=== PATIENT | male | born 1970 | race American Indian/Alaskan Native ===

== ENCOUNTER 2021-01-05 16:34 | Outpatient (REF) | payer OTHER, SELFPAY ==
[2021-01-05 17:56] LABS: Hematocrit 43.8 % (42-52); Hemoglobin 14.7 g/dl (14.0-18.0); Mean Corpuscular HGB Conc 33.6 g/dl (31.0-36.0); Mean Corpuscular Hemoglobin 32.8 pg (27.0-33.0); Mean Corpuscular Volume 97.8 fL (80-98); Mean Platelet Volume 9.4 fL (9.4-12.4); Platelet Count 274 X10*3/uL (160-400); Red Blood Count 4.48 X10*6/uL (4.60-5.80); Red Cell Distribution Width 12.7 % (11.0-16.0); White Blood Count 7.7 X10*3/uL (4.8-10.8)
[2021-01-05 18:14] LABS: Alanine Aminotransferase 23 U/L (0-40); Albumin Level 4.2 g/dL (3.5-5.0); Alkaline Phosphatase 60 U/L (39-117); Anion Gap 14 (12-20); Aspartate Amino Transferase 19 U/L (5-37); Bilirubin Total 1.2 mg/dL (0.0-1.0); Blood Urea Nitrogen 13 mg/dL (9-16); Carbon Dioxide 28 mmol/L (22-29); Chloride 104 mmol/L (96-108); Cholesterol 183 mg/dL; Estimated Glomerular Filt Rate > 60; Glucose Random 92 mg/dL (60-115); HDL Cholesterol 53 mg/dL; LDL Cholesterol Calculated 113 mg/dl; Potassium 4.5 mmol/L (3.3-5.1); Sodium 141 mmol/L (135-145); Total Protein 7.3 g/dL (6.5-8.0); Triglycerides 89 mg/dL
[2021-01-05 18:35] LABS: Prostate Specific Antigen 0.56 ng/mL (<0.05-4.0); Vitamin D 25-OH Total 27.3 ng/mL (>30)
[2021-01-06 07:12] LABS: Estimated Average Glucose 105 mg/dL; Hemoglobin A1c % 5.3 %
== END 2021-01-05 16:35 | disposition home or self-care (01) ==
LOC: HO.LAB 16:34
PROVIDERS: PCP Internal Medicine; Visit Provider Nurse Practitioner Family
DX: E78.2 Mixed hyperlipidemia (principal); R73.01 Impaired fasting glucose; E55.9 Vitamin D deficiency, unspecified; Z12.5 Encounter for screening for malignant neoplasm of prostate
CPT/HCPCS: 36415; 80053; 80061; 82306; 83036; 84153; 85027

== ENCOUNTER 2024-02-23 13:21 | Outpatient (AMB) | payer OTHER, SELFPAY ==
[2024-02-23 13:22] VITALS: BP 132/82; PULSE 91; O2SAT 98; BMI 36.6
--- NOTE | 2024-02-23 13:22 | MHC.PC.OV ---
Vital Signs 02/23/24 13:22 Height 5 ft 8.5 in Weight 244 lb BMI 36.6 BP 132/82 Blood Pressure Location Lt brachial Position Sitting Pulse 91 Pulse Source Pulse Oximeter Pulse Oximetry (%) 98 Oxygen Delivery Method Room Air Intake Visit Reasons: Establish Care Allergies Iodinated Contrast Media [IV CONTRAST] Allergy (Severe, Verified 02/23/24 13:40) ANAPHYLAXIS iodine Adverse Reaction (Severe, Verified 02/23/24 13:40) Anaphylaxis Medication List - Last Reconciled 02/23/24 by Gaye Miguel MD B-complex with vitamin C 1 tab PO DAILY bupropion HCl XL 150 mg PO QAM cyanocobalamin (vitamin B-12) 1,000 mcg PO DAILY fx-eai-[id number]-M4-pz7-jxp-epa-fish 200 mcg-1,000 unit-25 mg tabs PO trazodone 50 mg PO BEDTIME PRN Tobacco use date assessed: 02/23/24 Dental Screening Dental Screen Date: 02/23/24 Did you have a dental visit in the last 12 months?: Yes Did you have a dental problem in the last 6 months where you did not have access to dental care?: No Was dental information given to patient?: Patient has dentist HPI Establish Care HPI Details 53-year-old obese male with generalized anxiety disorder coming in to be seen for the 1st time. History of left ankle bimalleolar fracture December 2018 open reduction internal fixation left ankle Dr. Gandara. complains fo memory problem. skin rash concern dermatology [facility] Medical History (Updated 02/23/24 @ 14:37 by Gaye Miguel MD) Bruised kidney Surgical History (Updated 02/23/24 @ 14:21 by Gaye Miguel MD) S/P surgical manipulation of ankle joint Hx of shoulder surgery Family History (Updated 02/23/24 @ 13:46 by Sonia Gallegos CMA) Mother Diabetes Skin cancer Hypertension Father Diabetes Sister Skin cancer Sister Skin cancer Sister No problems noted. Brother No problems noted. Brother No problems noted. Brother No problems noted. Other Mental health disorder Substance use disorder Social History (Updated 02/23/24 @ 14:25 by Gaye Miguel MD) Housing: Apartment Alcohol intake: current Comment: 2x a week 3 beers Patient Tobacco Use Status: Never used Tobacco Tobacco use type: Cigarette Years Smoked: smoke cannabis e-Cigarette/Vaping Use: Currently Using (THC ) Second Hand Smoke Exposure: Yes service: No Current occupational status: employed Current occupation: [employer] Current occupational exposures/hazards: No Cognitive needs: No Hearing needs: No Vision needs: Yes Questionnaire PHQ-9 Over the last 2 weeks, how often have you been bothered by any of the following problems? 1. Little interest or pleasure in doing things: more than half the days 2. Feeling down, depressed, or hopeless: more than half the days 3. Trouble falling or staying asleep, or sleeping too much: more than half the days 4. Feeling tired or having little energy: nearly every day 5. Poor appetite or overeating: more than half the days 6. Feeling bad about yourself - or that you are a failure or have let yourself or your family down: several days 7. Trouble concentrating on things, such as reading the newspaper or watching television: several days 8. Moving or speaking so slowly that other people could have noticed. Or the opposite - being so fidgety or restless that you have been moving around a lot more than usual: not at all 9. Thoughts that you would be better off or of hurting yourself in some way: not at all Total score: 13 Depression Screening Interpretation: Positive Depression Screening Done: Yes 63497 - PHQ-9 Billing: Yes Source: Developed by Drs. Alex Vo, Dena Davis, Man Ballesteros and colleagues, with an educational cheryl from [employer]. Thrive Questionnaire Date Thrive assessed: 02/23/24 I am a: Patient What is your living situation today?: I have a steady place to live Within the past 12 months, did the food you bought not last and you didn't have the money to get more?: Never true Within the past 12 months, did you worry whether your food would run out before you got money to buy more?: Never true Do you have trouble paying for medicines?: No Do you have trouble getting transportation to medical appointments?: No Do you have trouble paying your heating and electricity bill?: No Do you have trouble taking care of your child, family member or friend?: No Do you have trouble with day-to-day activities such as bathing, preparing meals, shopping, managing finances, etc.?: No Are you currently unemployed and looking for a job?: No Are you interested in more education?: No Currently or been in a relationship where the following occur: no concerns reported THRIVE Score: 0 AUDIT C Alcohol Use Questionnaire (AUDIT-C) 1. How often do you have a drink containing alcohol?: 2-3 times a week 2. How many drinks containing alcohol do you have on a typical day when you are drinking?: 3 or 4 3. How often do you have six or more drinks on one occasion?: Never Total Score: 4 NANCY-7 AMB Questionnaire NANCY-7 Date NANCY - 7 assessed: 02/23/24 Feeling nervous, anxious, or on edge: 2 = More than half the days Not being able to stop or control worryin = More than half the days Worrying too much about different things: 2 = More than half the days Trouble relaxin = More than half the days Being so restless that it is hard to sit still: 1 = Several days Becoming easily annoyed or irritable: 2 = More than half the days Feeling afraid as if something awful might happen: 1 = Several days Total NANCY-7 score (0-4 normal; 5-9 mild; 10-14 moderate; 15-21 severe): 12 Source: Developed by Drs. Alex Vo, Dena Davis, Man Ballesteros and colleagues, with an educational cheryl from [employer]. NANCY-7 Assessment Billing NANCY-7 Assessment Tool: NANCY-7 Assessment 25279 Physical exam (Primary Care) Vital Signs: Last Vital Signs Pulse 91 02/23/24 13:22 BP 132/82 02/23/24 13:22 Pulse Ox 98 02/23/24 13:22 Oxygen Delivery Method Room Air 02/23/24 13:22 BMI result Body Mass Index 36.6 Tobacco/Smoking Status: Tobacco use Status Tobacco use date assessed 02/23/24 02/23/24 13:50 Patient Tobacco Use Status Never used Tobacco 02/23/24 14:25 Tobacco use type Cigarette 02/23/24 14:25 e-Cigarette/Vaping Use Currently Using (THC ) 02/23/24 14:25 PHQ-9: PHQ-9 Score PHQ-9: Total score 13 02/23/24 14:22 Depression Screening Interpretation: Positive Thrive Assessment: Date of Thrive Assessment Date Thrive assessed 02/23/24 02/23/24 13:28 Currently or been in a relationship where the following occur: no concerns reported Const General: alert; No acute distress Eyes Conjunctivae: conjunctivae normal Resp Auscultation: clear to auscultation bilaterally Cardio Rate: regular rate Rhythm: regular rhythm GI Inspection: Yes normal to inspection Extrem General: Yes normal to inspection and No edema Immunizations Engerix-B (PF) 20 mcg/mL intramuscular syringe Performing Provider: Gaye Miguel MD Performing Location: [facility] Administered by: Sonia Gallegos CMA on 02/23/24 14:44 Dose Route Admin Location Dispensed Lot Number Expiration Date [facility] Teleprinter Installer 1 mL IM Left Deltoid 1 mL [id number] 09/18/24 [id number] [employer] VIS Given Date VIS Provided VIS Publication Date 02/23/24 Single Vaccine 23 Eligibility Eligibility Date Funding Source Not [facility] Eligible 02/23/24 Private Assessment and Plan Assessment & Plan (1) Generalized anxiety disorder: Code(s): F41.1 - Generalized anxiety disorder Plan: Continue with present medication (2) Colon cancer screening: Code(s): Z12.11 - Encounter for screening for malignant neoplasm of colon Plan: Reminded about colonoscopy (3) Impaired fasting blood sugar: Code(s): R73.01 - Impaired fasting glucose Plan: Decrease the amount of carbohydrate intake, pasta, bread, rice and potatoes are all sugar and that is aside from all the sweet stuff, remember that fruits are good but they are Sweet also. (4) Skin tag: Code(s): L91.8 - Other hypertrophic disorders of the skin (5) Facial dermatitis: Code(s): L30.9 - Dermatitis, unspecified (6) Plantar fasciitis of right foot: Code(s): M72.2 - Plantar fascial fibromatosis Orders: Orders Comprehensive Met. Panel Today R73.01 - Impaired fasting glucose Lipid Panel Today E78.00 - Pure hypercholesterolemia, unspecified, R73.01 - Impaired fasting glucose Thyroid Stimulating Hormone Today R73.01 - Impaired fasting glucose Free T4 (Free Thyroxine) Today R73.01 - Impaired fasting glucose Hemoglobin A1c Today R73.01 - Impaired fasting glucose Complete Blood Count Auto Diff Today R73.01 - Impaired fasting glucose Prostate Specific Antigen Scr Today R73.01 - Impaired fasting glucose Vitamin B12 and Folate Today R73.01 - Impaired fasting glucose Referrals Psychiatry Referral F41.1 - Generalized anxiety disorder Gastroenterology Referral Z12.11 - Encounter for screening for malignant neoplasm of colon Dermatology Referral L30.9 - Dermatitis, unspecified Coding Level of Care Code New Pt Level 4 (93154) Diagnoses Generalized anxiety disorder F41.1 Colon cancer screening Z12.11 Impaired fasting blood sugar R73.01 Skin tag L91.8 Facial dermatitis L30.9 Plantar fasciitis of right foot M72.2 Additional Codes NANCY-7 Assessment Billing - NANCY-7 Assessment Tool: NANCY-7 Assessment 24937 ([id number])
== END 2024-02-23 14:50 | disposition home or self-care (01) ==
PROVIDERS: PCP Internal Medicine; Visit Provider Internal Medicine
DX: Z23 Encounter for immunization (principal); R73.01 Impaired fasting glucose; L30.9 Dermatitis, unspecified; F41.1 Generalized anxiety disorder; M72.2 Plantar fascial fibromatosis
CPT/HCPCS: 90471; 90746; 99204

== ENCOUNTER 2024-02-25 11:30 | Outpatient (REF) | payer OTHER, SELFPAY ==
[2024-02-25 11:57] LABS: MANUAL DIFF FLAG NO
[2024-02-25 12:28] LABS: Basophils Absolute Auto 0.1 X10*3/uL (0.0-0.2); Basophils Percent Auto 1.4 % (0-2); Eosinophils Absolute Auto 0.2 X10*3/uL (0.0-0.4); Eosinophils Percent Auto 3.6 % (0-4); Hematocrit 40.7 % (42.0-52.0); Hemoglobin 14.2 g/dl (14.0-18.0); Imm Gran Abs Auto 0.01 X10*3/uL (0.00-0.03); Imm Gran Pct Auto 0.2 % (0.0-0.4); Lymphocytes Absolute Auto 1.8 X10*3/uL (1.2-4.9); Lymphocytes Percent Auto 35.3 % (20-40); Mean Corpuscular HGB Conc 34.9 g/dl (31.0-36.0); Mean Corpuscular Hemoglobin 34.1 pg (27.0-33.0); Mean Corpuscular Volume 97.8 fL (80.0-98.0); Mean Platelet Volume 9.6 fL (9.4-12.4); Monocytes Absolute Auto 0.4 X10*3/uL (0.1-1.2); Monocytes Percent Auto 8.7 % (2-11); Neutrophils Absolute Auto 2.6 x10*3/uL (2.0-8.3); Neutrophils Percent Auto 50.8 % (45-73); Platelet Count 239 X10*3/uL (160-400); Red Blood Count 4.16 X10*6/uL (4.60-5.80); Red Cell Distribution Width 12.7 % (11.0-16.0); White Blood Count 5.1 X10*3/uL (4.8-10.8)
[2024-02-25 12:46] LABS: Estimated Average Glucose 103 mg/dL; Hemoglobin A1c % 5.2 % (<6.0)
[2024-02-25 13:09] LABS: Alanine Aminotransferase 47 U/L (0-40); Alkaline Phosphatase 54 U/L (39-117); Anion Gap 11 (12-20); Aspartate Amino Transferase 31 U/L (5-37); Bilirubin Total 0.9 mg/dL (0.0-1.0); Blood Urea Nitrogen 11 mg/dL (9-16); Calcium 9.5 mg/dL (8.4-10.2); Carbon Dioxide 28 mmol/L (22-29); Chloride 107 mmol/L (96-108); Cholesterol 198 mg/dL (<200); Estimated Glomerular Filt Rate > 60; Glucose Random 94 mg/dL (60-115); HDL Cholesterol 57 mg/dL (>40); LDL Cholesterol Calculated 129 mg/dL (<100); Potassium 4.6 mmol/L (3.3-5.1); Sodium 141 mmol/L (135-145); Total Protein 7.1 g/dL (6.5-8.0); Triglycerides 62 mg/dL (<150)
[2024-02-25 13:19] LABS: Free T4 (Free Thyroxine) 1.22 ng/dL (0.71-1.85); Thyroid Stimulating Hormone 1.68 uIU/mL (0.32-4.0)
[2024-02-25 13:25] LABS: Folate 13.7 ng/mL (> or = 4.0); Prostate Specific Antigen Scr 0.62 ng/mL (<0.05-4.0); Vitamin B12 1280 pg/mL (200-900)
== END 2024-02-25 11:31 | disposition home or self-care (01) ==
LOC: HO.LAB 11:30
PROVIDERS: PCP Internal Medicine; Visit Provider Internal Medicine
DX: E78.00 Pure hypercholesterolemia, unspecified (principal); R73.01 Impaired fasting glucose
CPT/HCPCS: 36415; 80053; 80061; 82607; 82746; 83036; 84153; 84439; 84443; 85025

== ENCOUNTER 2024-03-10 08:15 | Outpatient (REF) | payer OTHER, SELFPAY ==
--- NOTE | ~2024-03-10 | US_ITS ---
EXAMINATION: US ABDOMEN COMPLETE CLINICAL INFORMATION: Elevated LFTs. COMPARISON: None available. TECHNIQUE: Real-time imaging of the abdominal viscera. Technically severely limited study secondary to bowel gas. FINDINGS: PANCREAS: Limited visualization of pancreatic tail and head. Imaged portion of pancreatic body is unremarkable. ABDOMINAL AORTA: Limited visualization particularly of the mid and proximal abdominal aorta. Imaged portions of the [id number]-[id number] abdominal aorta are unremarkable. INFERIOR VENA CAVA: Visualized portions are normal. LIVER: Increased hepatic parenchymal heterogeneity and echogenicity could be associated with hepatocellular disease/hepatic steatosis and substantially limits visualization. Correlation with liver function tests and clinical exam recommended to determine further management. Severely limited visualization, with particularly poor visualization of the left hepatic lobe. GALLBLADDER: No gallstones. No gallbladder wall thickening. COMMON BILE DUCT: Normal in caliber measuring 0.20 cm in diameter. RIGHT KIDNEY: No hydronephrosis. No renal calculi. Limited visualization. The kidney measures 10.3 cm in maximum dimension. LEFT KIDNEY: No hydronephrosis. No renal calculi. Limited visualization. The kidney measures 12.9 cm in maximum dimension. SPLEEN: Normal. The spleen measures 9.9 cm in maximum dimension. FREE FLUID: None. US/US abdomen complete IMPRESSION: Increased hepatic parenchymal heterogeneity and echogenicity could be associated with hepatocellular disease/hepatic steatosis and substantially limits visualization. Correlation with liver function tests and clinical exam recommended to determine further management.
== END 2024-03-10 08:16 | disposition home or self-care (01) ==
LOC: HO.HMGCX 08:15
PROVIDERS: PCP Internal Medicine; Visit Provider Internal Medicine
DX: R79.89 Other specified abnormal findings of blood chemistry (principal)
CPT/HCPCS: 76700

== ENCOUNTER 2024-03-25 08:41 | Outpatient (REF) | payer OTHER, SELFPAY ==
[2024-03-25 10:02] LABS: Alanine Aminotransferase 85 U/L (0-40); Albumin Level 4.2 g/dL (3.5-5.0); Alkaline Phosphatase 57 U/L (39-117); Anion Gap 14 (12-20); Aspartate Amino Transferase 45 U/L (5-37); Bilirubin Total 0.6 mg/dL (0.0-1.0); Blood Urea Nitrogen 9 mg/dL (9-16); Calcium 9.7 mg/dL (8.4-10.2); Carbon Dioxide 31 mmol/L (22-29); Chloride 106 mmol/L (96-108); Estimated Glomerular Filt Rate > 60; Glucose Random 100 mg/dL (60-115); Potassium 4.8 mmol/L (3.3-5.1); Sodium 146 mmol/L (135-145); Total Protein 7.3 g/dL (6.5-8.0)
[2024-03-25 10:23] LABS: HBS Num1 1.47 mIU/mL (0-7.99); HBc Num1 0.16 S/CO (0.00-0.79); HBsAGNum1 0.61 S/CO (0.00-0.99); Hepatitis B Core Antibody Nonreactive (Nonreactive); Hepatitis B Surface Antigen Negative (Negative); ~Hepatitis B Surface Antibody NONREACTIVE (Nonreactive); ~Hepatitis C Antibody Nonreactive (Nonreactive)
== END 2024-03-25 08:42 | disposition home or self-care (01) ==
LOC: HO.LAB 08:41
PROVIDERS: PCP Internal Medicine; Visit Provider Internal Medicine
DX: R79.89 Other specified abnormal findings of blood chemistry (principal)
CPT/HCPCS: 36415; 80053; 86704; 86706; 86803; 87340

== ENCOUNTER 2024-04-19 09:08 | Outpatient (AMB) | payer OTHER, SELFPAY ==
[2024-04-19 09:13] VITALS: BP 118/90; PULSE 73; O2SAT 98; BMI 33.0
--- NOTE | 2024-04-19 09:13 | MHC.PC.OV ---
Vital Signs 04/19/24 09:13 Height 5 ft 8.5 in Weight 220 lb 0.4 oz BMI 33.0 BP 118/90 H Blood Pressure Location Lt brachial Position Sitting Pulse 73 Pulse Source Pulse Oximeter Pulse Oximetry (%) 98 Oxygen Delivery Method Room Air Intake Visit Reasons: Abdomen Pain Intake Note: pt sates abdominal pain X1 month Merchandise Flow Associate Required: No Allergies Iodinated Contrast Media [IV CONTRAST] Allergy (Severe, Verified 04/19/24 09:16) ANAPHYLAXIS iodine Adverse Reaction (Severe, Verified 04/19/24 09:16) Anaphylaxis Medication List - Last Reconciled 04/19/24 by Marina Saucedo PA-C B-complex with vitamin C 1 tab PO DAILY bupropion HCl XL 150 mg PO QAM cyanocobalamin (vitamin B-12) 1,000 mcg PO DAILY [id number]-cwe-[id number]-sky-epa-fish 200 mcg-1,000 unit-25 mg tabs PO trazodone 50 mg PO BEDTIME PRN Tobacco use date assessed: 04/19/24 Dental Screening Dental Screen Date: 02/23/24 HPI Abdomen Pain HPI Details 53-year-old male with medical history of impaired glucose tolerance, generalized anxiety disorder, and hepatic steatosis last seen by Dr. Miguel 02/23/2024 coming in for an acute visit.? Patient had abdominal ultrasound 03/10/2024 which found increased hepatic parenchymal heterogeneity consistent with hepatocellular disease or hepatic steatosis. Per portal discussion, patient is being followed for elevated liver functions.?Has been improving diet and exercise as well as added vitamin supplements turmeric, milk thistle, and fish oil daily.? Denies use of edible cannabis but is still using cannabis in a vape form. Still having abdominal pain primarily at night and has used Tylenol in the past. Patient states he has RUQ pain and right flank pain daily which ranges from 1-6 and worsens at night. He finds adjustment in his positioning can improve the pain and sitting upright for extended periods of time worsens the pain. He has not been using anything for the abdominal pain. No change in pain with eating, and has never woken him from sleep. The flank pain does not radiate down his leg but occasionally contributes to the RUQ pain. He has been improving diet and exercise and has completely stopped consuming alcohol and edible cannabis. He has been using cannabis in vape form. He has also been doing new exercises and finds soreness in these activities occasionally. [facility] Medical History (Updated 04/19/24 @ 10:00 by Marina Saucedo PA-C) LFT elevation Bruised kidney Surgical History (Updated 02/23/24 @ 14:21 by Gaye Miguel MD) S/P surgical manipulation of ankle joint Hx of shoulder surgery Family History (Updated 02/23/24 @ 13:46 by Sonia Gallegos [facility]) Mother Diabetes Skin cancer Hypertension Father Diabetes Sister Skin cancer Sister Skin cancer Sister No problems noted. Brother No problems noted. Brother No problems noted. Brother No problems noted. 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 1. Little interest or pleasure in doing things: more than half the days 2. Feeling down, depressed, or hopeless: more than half the days 3. Trouble falling or staying asleep, or sleeping too much: more than half the days 4. Feeling tired or having little energy: nearly every day 5. Poor appetite or overeating: more than half the days 6. Feeling bad about yourself - or that you are a failure or have let yourself or your family down: several days 7. Trouble concentrating on things, such as reading the newspaper or watching television: several days 8. Moving or speaking so slowly that other people could have noticed. Or the opposite - being so fidgety or restless that you have been moving around a lot more than usual: not at all 9. Thoughts that you would be better off or of hurting yourself in some way: not at all Total score: 13 Depression Screening Interpretation: Positive Depression Screening Done: Yes 88104 - PHQ-9 Billing: Yes Source: Developed by Drs. Alex Vo, Dean Davis, Man Ballesteros and colleagues, with an educational cheryl from [employer]. Thrive Questionnaire Date Thrive assessed: 02/23/24 I am a: Patient What is your living situation today?: I have a steady place to live Within the past 12 months, did the food you bought not last and you didn't have the money to get more?: Never true Within the past 12 months, did you worry whether your food would run out before you got money to buy more?: Never true Do you have trouble paying for medicines?: No Do you have trouble getting transportation to medical appointments?: No Do you have trouble paying your heating and electricity bill?: No Do you have trouble taking care of your child, family member or friend?: No Do you have trouble with day-to-day activities such as bathing, preparing meals, shopping, managing finances, etc.?: No Are you currently unemployed and looking for a job?: No Are you interested in more education?: No THRIVE Score: 0 AUDIT C Alcohol Use Questionnaire (AUDIT-C) 1. How often do you have a drink containing alcohol?: 2-3 times a week 2. How many drinks containing alcohol do you have on a typical day when you are drinking?: 3 or 4 3. How often do you have six or more drinks on one occasion?: Never Total Score: 4 NANCY-7 AMB Questionnaire NANCY-7 Date NANCY - 7 assessed: 02/23/24 Source: Developed by Drs. Alex Vo, Dena Davis, Man Ballesteros and colleagues, with an educational cheryl from [employer]. Review of Systems Const Denies body aches, Denies chills, Denies difficulty sleeping, Denies fever(s), Denies weakness and Reports weight loss (Intentional 20 lb weight loss since last visit) Eyes Reports no additional complaints ENT Reports no additional complaints, Denies dysphagia and Denies dizziness Card Denies chest pain, Denies syncope, Denies edema, Denies irregular heart rhythm, Denies leg edema and Denies dyspnea Resp Denies cough and Denies dyspnea GI Details: Right upper quadrant and right flank pain Denies change in stool character, Denies constipation, Denies dysphagia, Denies dyspepsia, Denies heartburn, Denies diarrhea, Reports nausea and Denies vomiting Denies hematuria, Denies difficulty urinating, Denies dysuria, Reports flank pain (Right) and Denies urinary frequency Musc Details: Endorses 1 episode right-sided low back pain that radiated into the right Reports back pain, Denies joint swelling, Denies numbness, Denies radiating pain into limb and Denies stiffness Skin/Breast Reports system reviewed and no additional complaints, except as documented Neuro Denies dizziness, Denies syncope, Denies numbness, Denies radicular pain and Denies weakness Psych Reports anxiety Physical exam (Primary Care) Vital Signs: Oxygen Delivery Method Room Air 04/19/24 09:13 BMI result Body Mass Index 33.0 Tobacco/Smoking Status: Tobacco use Status Tobacco use date assessed 02/23/24 02/23/24 13:50 Patient Tobacco Use Status Never used Tobacco 02/23/24 14:25 Tobacco use type Cigarette 02/23/24 14:25 e-Cigarette/Vaping Use Currently Using 02/23/24 14:25 Depression Screening Interpretation: Positive Thrive Assessment: Date of Thrive Assessment Date Thrive assessed 02/23/24 02/23/24 13:28 Const General: cooperative, healthy appearing, comfortable, no acute distress and anxious Orientation/consciousness: patient oriented x3 Limitations: no limitations HENMT Head: Yes normal to inspection and Yes normocephalic Ears: hearing grossly normal bilaterally Eyes General: appearance normal, both eyes and all related structures Conjunctivae: conjunctivae normal Neck Neck: Yes normal visual inspection, Yes full ROM and Yes no lymphadenopathy Resp Effort & Inspection: normal respiratory effort Auscultation: clear to auscultation bilaterally, no crackles, no rales, no rhonchi and no wheezes Cardio Rate: regular rate Rhythm: regular rhythm Heart sounds: S1 normal heart sound present and S2 normal heart sound present GI Inspection: Yes normal to inspection, No Abdominal wall edema and No distended Palpation (GI): Soft to palpation, not firm, nontender, not rigid, no hepatomegaly, Hernia present umbilical and No Rebound tenderness present Auscultation: normal bowel sounds General: No no CVA tenderness Back/Spine/Pelvis Other: left low back tenderness to palpation. No pain to palpation over the spine or paraspinous muscles Back: No no CVA tenderness Skin General skin exam: no rashes or lesions noted Neuro General: patient oriented x3 and gait normal Extrem General: Yes normal to inspection, Yes no joint enlargement, Yes no pedal edema and No edema Psych Appearance: grossly normal Affect: normal affect Insight: Good insight present (Psych) Judgement: Good judgement present (Psych) Assessment and Plan Assessment & Plan (1) Hepatic steatosis: Code(s): K76.0 - Fatty (change of) liver, not elsewhere classified Plan: Liver function tests elevated on last blood work. Ultrasound obtained showed nonspecific evidence of hepatocellular disease/hepatic steatosis. Patient was referred to GI and has an appointment scheduled 06/02/2024. Patient stated he would like a CT scan to further evaluate liver, deferred to GI for further evaluation and discussion of need for CT. Continue with diet modification, exercise and weight loss. At patient request patient referred to grove worker to aid with diet modification. Counseled on avoidance excessive use of Tylenol, may use ibuprofen as needed for pain. Patient provided informational packet on hepatic steatosis. (2) Abdominal pain: Code(s): R10.9 - Unspecified abdominal pain Qualifiers: Abdominal location: right upper quadrant Qualified Code(s): R10.11 - Right upper quadrant pain Plan: At this time pain appears to be muscular in origin. Patient states the pain is primarily in the right upper quadrant however today did not have any pain to palpation of right upper quadrant, and is not currently reporting pain. Pain tends to be variable in severity and location. No signs of acute abdomen at this time. Counseled patient on red flag symptoms of abdominal pain and when to go to the emergency department. We will follow up with GI in May and sooner with us if more concerns arise. Plan Thank you for allowing me to participate in the care of this patient. I personally spent 60 minutes reviewing, examining and charting on this patient. All questions were answered to patient's satisfaction. Orders: Orders Lipid Panel Today Z00.00 - Encounter for general adult medical examination without abnormal findings Complete Blood Count Auto Diff Today Z00.00 - Encounter for general adult medical examination without abnormal findings Comprehensive Met. Panel Today Z00.00 - Encounter for general adult medical examination without abnormal findings Referrals [employer] Nutrition Referral R73.01 - Impaired fasting glucose Coding Level of Care Code Est Pt Level 4 (05578) Diagnoses Hepatic steatosis K76.0 Right upper quadrant abdominal pain R10.11 Abdominal location: right upper quadrant
== END 2024-04-19 10:33 | disposition home or self-care (01) ==
PROVIDERS: PCP Internal Medicine
DX: K76.0 Fatty (change of) liver, not elsewhere classified (principal); R10.11 Right upper quadrant pain
CPT/HCPCS: 99214

== ENCOUNTER 2024-04-22 13:22 | Outpatient (AMB) | payer OTHER, SELFPAY ==
[2024-04-22 13:32] VITALS: BMI 35.1
--- NOTE | 2024-04-22 13:32 | A.OFFVIS_ITS ---
VS Expanded 04/22/24 13:32 04/22/24 13:53 Height 5 ft 8.5 in 5 ft 8 in Weight 234 lb 2.095 oz 234 lb BMI 35.1 35.6 Intake Visit Reasons: Impaired fasting glucose Allergies Iodinated Contrast Media [IV CONTRAST] Allergy (Severe, Verified 04/19/24 09:16) ANAPHYLAXIS iodine Adverse Reaction (Severe, Verified 04/19/24 09:16) Anaphylaxis Nutrition Presentation Details: Pt presents for MNT for IFG. Pt was referred by [facility] Monitoring Most Recent Diabetes Results: Hemoglobin A1c 5.9 % 04/27/19 Cholesterol 198 mg/dL (<200) 02/25/24 HDL Cholesterol 57 mg/dL (>40) 02/25/24 Triglycerides 62 mg/dL (<150) 02/25/24 Creatinine 0.78 mg/dL (0.5-1.4) 03/25/24 Blood Urea Nitrogen 9 mg/dL (9-16) 03/25/24 Sodium 146 mmol/L (135-145) H 03/25/24 Potassium 4.8 mmol/L (3.3-5.1) 03/25/24 Chloride 106 mmol/L (96-108) 03/25/24 Carbon Dioxide 31 mmol/L (22-29) H 03/25/24 Calcium 9.7 mg/dL (8.4-10.2) 03/25/24 AST 45 U/L (5-37) H 03/25/24 ALT 85 U/L (0-40) H 03/25/24 Total Protein 7.3 g/dL (6.5-8.0) 03/25/24 Albumin 4.2 g/dL (3.5-5.0) 03/25/24 FXB-Tppbqqb-Hg.Jeor Equation Height: 5 ft 8 in Weight: 234 lb Resting Metabolic Rate: 1884.08 Calculated Activity Level: Sedentary Calories Needed to Maintain Weight: 2260.90 Diagnosis Nutrition problem #1: food nutri know defi As related to (etiology) #1: diagnosis As evidenced by (sign/symptom) #1: knowledge deficit of diet [facility] Medical History (Updated 04/19/24 @ 10:00 by Marina Saucedo PA-C) LFT elevation Bruised kidney Surgical History (Updated 02/23/24 @ 14:21 by Gaye Miguel MD) S/P surgical manipulation of ankle joint Hx of shoulder surgery Family History (Updated 02/23/24 @ 13:46 by Sonia Gallegos CMA) Mother Diabetes Skin cancer Hypertension Father Diabetes Sister Skin cancer Sister Skin cancer Sister No problems noted. Brother No problems noted. Brother No problems noted. Brother No problems noted. 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 Current occupational exposures/hazards: No Cognitive needs: No Hearing needs: No Vision needs: Yes Assessment & Plan Assessment & Plan (1) Impaired fasting blood sugar: Code(s): R73.01 - Impaired fasting glucose Category: Medical Plan: Wt: 106 Kg ( 05/05 ) Est kcal needs as per MSJ: 2300 (40% carb, 30% protein/fat) Est fluid needs as per 25-30 ml/d: 3200 Est prot per day as per 1 g/kg bw: 106 Recommend fiber intake : 8-10 g per day and gradually increase to 25-28 g per day for women and 35-38 g for men or as tolerated Recommend sodium intake per day : less than 2000 mg Educated patient on: ( R = reviewed V = verbalizes understanding N/R = needs review N/A = not applicable * Food sources of carbohydrate, adequate serving sizes and its role in various health conditions: R * Differences between complex carbohydrates a simple carbohydrates, role of fiber in diet: R * Lean protein sources of foods: R V NR * Differences between types of fats and role in diet (mono on saturated fat fatty acids, saturated fatty acids, trans fats): R V N/R * Food sources of sodium in salt and healthy modifications for heart health in kidney health: R V R/V * Vitamins and minerals: R V N/R * Healthy plate method concept: R * Physical activity: Benefits a precaution: R V N/R * Hypoglycemia protocol (rule of 15): R V N/R * Dietary prevention of Hyperglycemia: R Patient Instructions: Reduce on total carb at meal to 80 g or less following healthy plat emethod Choose complex carbohydrates increasing fiber keep hydrated by having water with meals/snacks as you increase on fiber to prevent constipation Coding Level of Care Code Nutr Indiv Intake (32939) Diagnoses Impaired fasting blood sugar R73.01 Time Spent (min) 30
[2024-04-29 10:01] VITALS: BMI 35.6
== END 2024-04-22 14:16 | disposition home or self-care (01) ==
PROVIDERS: PCP Internal Medicine; Visit Provider Dietitian, Registered
DX: R73.01 Impaired fasting glucose (principal)

== ENCOUNTER → 2024-04-22 13:22 | Outpatient (BNVA) | payer OTHER, SELFPAY | PROVIDERS: PCP Internal Medicine; Visit Provider Dietitian, Registered | DX: R73.01 Impaired fasting glucose (principal) | CPT/HCPCS: 97802 ==

== ENCOUNTER 2024-06-02 13:19 | Outpatient (AMB) | payer OTHER, SELFPAY ==
[2024-06-02 13:22] VITALS: BP 116/66; PULSE 73; BMI 34.2
--- NOTE | 2024-06-02 13:22 | MHC.OFFVIS ---
Vital Signs 06/02/24 13:22 Height 5 ft 8 in Weight 224 lb 13.944 oz BMI 34.2 BP 116/66 Blood Pressure Location Rt brachial Position Sitting Pulse 73 Intake Visit Reasons: Fatty Liver - colo screen Intake Note: Amanda presents in office as a new patient for fatty liver and colonoscopy screening. CC: Patient c/o daily RUQ abdominal pain that is constant, worst at night, with onset of pain 02/23/24.He also reports occasional lower bilateral back pain. Last month he states he was having a lot of nausea. He also reports a lot of weight loss. Slasher Tender Required: No Allergies Iodinated Contrast Media [IV CONTRAST] Allergy (Severe, Verified 06/02/24 13:27) ANAPHYLAXIS iodine Adverse Reaction (Severe, Verified 06/02/24 13:27) Anaphylaxis HPI HPI Fatty Liver - colo screen: Details: 53-year-old male here For initial evaluation of fatty liver and he is also due for colonoscopy screening. He is referred by Marina Saucedo PMX Transaminitis Hepatic steatosis Anxiety Obesity-BMI of 33 * SURGICAL HISTORY Ankle joint surgery Shoulder surgery * ALLERGIES Iodine -anaphylaxis IVC contrast * [employer] LABS: Laboratory Tests 02/25/24 03/25/24 11:56 09:01 WBC 5.1 Hgb 14.2 Hct 40.7 L MCV 97.8 MCH 34.1 H Plt Count 239 Estimated GFR > 60 Total Bilirubin 0.6 AST 45 H ALT 85 H Alkaline Phosphatase 57 Free T4 1.22 Laboratory Tests 03/25/24 09:01 Hep Bs Antigen Negative Hep Bs Antibody NONREACTIVE Hep B Core Total Ab Nonreactive Hepatitis C Ab (EIA) Nonreactive US ABD 03/23/24 FINDINGS: PANCREAS: Limited visualization of pancreatic tail and head. Imaged portion of pancreatic body is unremarkable. ABDOMINAL AORTA: Limited visualization particularly of the mid and proximal abdominal aorta. Imaged portions of the [id number]-cw-wxarer abdominal aorta are unremarkable. INFERIOR VENA CAVA: Visualized portions are normal. LIVER: Increased hepatic parenchymal heterogeneity and echogenicity could be associated with hepatocellular disease/hepatic steatosis and substantially limits visualization. Correlation with liver function tests and clinical exam recommended to determine further management. Severely limited visualization, with particularly poor visualization of the left hepatic lobe. GALLBLADDER: No gallstones. No gallbladder wall thickening. COMMON BILE DUCT: Normal in caliber measuring 0.20 cm in diameter. RIGHT KIDNEY: No hydronephrosis. No renal calculi. Limited visualization. The kidney measures 10.3 cm in maximum dimension. LEFT KIDNEY: No hydronephrosis. No renal calculi. Limited visualization. The kidney measures 12.9 cm in maximum dimension. SPLEEN: Normal. The spleen measures 9.9 cm in maximum dimension. FREE FLUID: None. US/US abdomen complete IMPRESSION: Increased hepatic parenchymal heterogeneity and echogenicity could be associated with hepatocellular disease/hepatic steatosis and substantially limits visualization. Correlation with liver function tests and clinical exam recommended to determine further management. TODAY'S VISIT He had the sudden onset 3 months ago of pain in the RUQ, better with laying, he has had a lot of gas recently and he is unsure if pain in r/t eating as his largest meal is qhs as the pain is always worse at night. The pain is described as pinching like someone took clothespins and put them under my ribs, occasionally has right sided low back pain that may be associated. When the pain was severe was 10/10 but most of the time is a nagging discomfort. When it was at its worst he described it as like a pepsi can in my side under my ribs and N/V with this. Prior to the onset of this pain he was drinking regularly, a terrell of craft beer or ? 6% ABV twice a week. He also started marijuana edibles for anxiety. He was close to 300 lbs prior to the pandemic, but lost close to 80lbs after starting cannabis edibles. But he is concerned that ongoing nausea has caused 20 lbs of his most recent wt loss. He has suspicions re: cannabanoid hyperemesis as he stopped it and felt somewhat better and then did some SL cannabis and had immediate pain and nausea. I did explain to him that the higher THC content is what sometimes will drive cannabinoid hyperemesis syndrome particularly with the very high content and high absorb ability of some of the marijuana that is available in this day and age. Still we should probably rule out any other more concerning causes, ultrasound shows he does not have any gallstones but that does not rule out biliary dyskinesia. He was concerned that his liver was causing pain, but the liver is not a painful organ. His father of a gallbladder problem, but most of his relatives were early [place] They mostly of accidents drug and alcohol related problems. I spent time educating him about fatty liver the genetic component to this and that usually it is controlled via slow steady weight loss, avoidance of alcohol, and controlling blood sugar should he become diabetic. However before we call it fatty liver we want to rule out any other reversible causes so I will be doing some additional testing to rule out autoimmune diseases etc.. He has noted pale stools and gassy, but he is eating more oatmeal and a lot of nuts at night, very regular, no diarrhea. He has stopped drinking but still vapes cannabis at a lower dose. So far this lower dose has not return him to a severe level of pain or nausea. He is also due for colonoscopy screening. This will be his first colonoscopy. He is fairly naive to anesthesia and sedation. He denies any cardiac or respiratory problems. No ID problems. No known FHX of CRC or polyps. [facility] Medical History (Updated 06/02/24 @ 14:39 by RIVER Alfred) Colon cancer screening LFT elevation Bruised kidney Surgical History (Updated 02/23/24 @ 14:21 by Gaye Miguel MD) S/P surgical manipulation of ankle joint Hx of shoulder surgery Family History (Updated 06/02/24 @ 13:29 by ESTEBAN Perez) Mother Diabetes Skin cancer Hypertension Thyroid disease Father Diabetes Sister Skin cancer Sister Skin cancer Sister No problems noted. Brother No problems noted. Brother No problems noted. Brother No problems noted. 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 Current occupational exposures/hazards: No Cognitive needs: No Hearing needs: No Vision needs: Yes Review of Systems Const Denies fatigue, Denies fever(s), Denies night sweats, Denies poor appetite and Reports weight loss Eyes Details: glasses Reports requires corrective lenses ENT Reports Normal hearing present, Denies dental pain, Denies dysphagia, Denies hearing loss, Denies mouth pain, Denies odynophagia, Denies throat swelling, Denies tongue swelling and Reports other (Dentition adequate) Card Reports no additional complaints Resp Reports no additional complaints GI Details: Reports abdominal pain, Denies melena, Reports bloating, Denies hematochezia, Denies constipation, Denies GI cramping, Denies dysphagia, Reports excessive flatus, Denies early satiety, Denies heartburn, Denies diarrhea, Reports loose stools, Reports nausea, Denies odynophagia, Denies vomiting and Denies hematemesis Musc Reports back pain Skin/Breast Denies pruritus, Denies lesions, Denies rash and Denies jaundice Neuro Reports Normal hearing present and Denies Abnormal speech present Psych Reports anxiety Endo Denies fatigue Aller/Immun Denies throat swelling and Denies tongue swelling Physical Exam Vital Signs: Last Vital Signs Pulse 73 06/02/24 13:22 BP 116/66 06/02/24 13:22 BMI result Body Mass Index 34.2 Const General: cooperative, no acute distress, well developed and well groomed Nutritional Appearance: well nourished and obese Orientation/consciousness: oriented to person, oriented to place and oriented to time Limitations: No language barrier HEENT Head: Yes normocephalic and Yes atraumatic Eyes General: appearance normal, both eyes and all related structures Pupils: Equal, round and reactive pupils present Neck Neck: Yes normal visual inspection and Yes no lymphadenopathy Thyroid: Thyroid normal Resp Effort & Inspection: normal respiratory effort and able to speak in complete sentences Auscultation: clear to auscultation bilaterally Cardio Rate: regular rate Rhythm: regular rhythm Heart sounds: Normal, physiologic split S2 sound present Peripheral pulses: radial pulses present and posterior tibial pulses present GI Inspection: No distended, Yes Abdominal panniculus present and Yes obesity Palpation (GI): Soft to palpation, nontender, no guarding, not rigid, No hepatosplenomegaly present and Hernia present umbilical Percussion: Yes normal to percussion Auscultation: normal bowel sounds Rectal Exam - Male: Yes deferred Skin General skin exam: no rashes or lesions noted, turgor normal, skin not dry, no jaundice, No spider nevi and no striae Rashes: no rashes Nails: normal Neuro General: oriented to person, oriented to place and oriented to time Cranial nerves: Yes Equal, round and reactive pupils present and Yes Normal hearing present Speech: No Abnormal speech present Extrem General: Yes normal to inspection, No clubbing, No cyanosis and No edema Psych Appearance: grossly normal and well kempt Mental Status: mental status grossly normal Speech and movement: Normal speech and movement present Affect: normal affect Attitude: cooperative Thought process: Normal thought process present and not confabulating Thought content: Normal thought content present Insight: Limited insight present (Psych) Judgement: Limited judgement present (Psych) Assessment & Plan Assessment & Plan (1) Hepatic steatosis: Comment: Baseline Laboratory Tests 02/25/24 WBC 5.1 Hgb 14.2 Hct 40.7 L MCV 97.8 MCH 34.1 H Plt Count 239 Estimated GFR > 60 Total Bilirubin 0.6 AST 45 H ALT 85 H Alkaline Phosphatase 57 Free T4 1.22 03/25/24 09:01 Hep Bs Antigen Negative Hep Bs Antibody NONREACTIVE Hep B Core Total Ab Nonreactive Hepatitis C Ab (EIA) Nonreactive CURRENT LABS US ABD 03/23/24 FINDINGS: PANCREAS: Limited visualization of pancreatic tail and head. Imaged portion of pancreatic body is unremarkable. ABDOMINAL AORTA: Limited visualization particularly of the mid and proximal abdominal aorta. Imaged portions of the rpb-ni-lykunk abdominal aorta are unremarkable. INFERIOR VENA CAVA: Visualized portions are normal. LIVER: Increased hepatic parenchymal heterogeneity and echogenicity could be associated with hepatocellular disease/hepatic steatosis and substantially limits visualization. Correlation with liver function tests and clinical exam recommended to determine further management. Severely limited visualization, with particularly poor visualization of the left hepatic lobe. GALLBLADDER: No gallstones. No gallbladder wall thickening. COMMON BILE DUCT: Normal in caliber measuring 0.20 cm in diameter. RIGHT KIDNEY: No hydronephrosis. No renal calculi. Limited visualization. The kidney measures 10.3 cm in maximum dimension. LEFT KIDNEY: No hydronephrosis. No renal calculi. Limited visualization. The kidney measures 12.9 cm in maximum dimension. SPLEEN: Normal. The spleen measures 9.9 cm in maximum dimension. FREE FLUID: None. US/US abdomen complete IMPRESSION: Increased hepatic parenchymal heterogeneity and echogenicity could be associated with hepatocellular disease/hepatic steatosis and substantially limits visualization. Correlation with liver function tests and clinical exam recommended to determine further management. Code(s): K76.0 - Fatty (change of) liver, not elsewhere classified Category: Medical (2) Abdominal pain: Code(s): R10.9 - Unspecified abdominal pain Category: Medical Qualifiers: Abdominal location: right upper quadrant Qualified Code(s): R10.11 - Right upper quadrant pain (3) Pre-op examination: Code(s): Z01.818 - Encounter for other preprocedural examination Category: Medical Plan He had the sudden onset 3 months ago of pain in the RUQ, better with laying, he has had a lot of gas recently and he is unsure if pain in r/t eating as his largest meal is qhs as the pain is always worse at night. The pain is described as pinching like someone took clothespins and put them under my ribs, occasionally has right sided low back pain that may be associated. When the pain was severe was 10/10 but most of the time is a nagging discomfort. When it was at its worst he described it as like a pepsi can in my side under my ribs and N/V with this. Prior to the onset of this pain he was drinking regularly, a terrell of craft beer or ? 6% ABV twice a week. He also started marijuana edibles for anxiety. He was close to 300 lbs prior to the pandemic, but lost close to 80lbs after starting cannabis edibles. But he is concerned that ongoing nausea has caused 20 lbs of his most recent wt loss. He has suspicions re: cannabanoid hyperemesis as he stopped it and felt somewhat better and then did some SL cannabis and had immediate pain and nausea. I did explain to him that the higher THC content is what sometimes will drive cannabinoid hyperemesis syndrome particularly with the very high content and high absorb ability of some of the marijuana that is available in this day and age. Still we should probably rule out any other more concerning causes, ultrasound shows he does not have any gallstones but that does not rule out biliary dyskinesia. He was concerned that his liver was causing pain, but the liver is not a painful organ. His father of a gallbladder problem, but most of his relatives were early [place] They mostly of accidents drug and alcohol related problems. I spent time educating him about fatty liver the genetic component to this and that usually it is controlled via slow steady weight loss, avoidance of alcohol, and controlling blood sugar should he become diabetic. However before we call it fatty liver we want to rule out any other reversible causes so I will be doing some additional testing to rule out autoimmune diseases etc.. He has noted pale stools and gassy, but he is eating more oatmeal and a lot of nuts at night, very regular, no diarrhea. He has stopped drinking but still vapes cannabis at a lower dose. So far this lower dose has not return him to a severe level of pain or nausea. He is also due for colonoscopy screening. This will be his first colonoscopy. He is fairly naive to anesthesia and sedation. He denies any cardiac or respiratory problems. No ID problems. No known FHX of CRC or polyps. Orders: Orders Alpha Fetoprotein Today K76.0 - Fatty (change of) liver, not elsewhere classified, R10.11 - Right upper quadrant pain RAYMOND Reflex Titer and Pattern Today K76.0 - Fatty (change of) liver, not elsewhere classified, R10.11 - Right upper quadrant pain Ferritin Today K76.0 - Fatty (change of) liver, not elsewhere classified, R10.11 - Right upper quadrant pain Gamma Glutamyl Transpeptidase Today K76.0 - Fatty (change of) liver, not elsewhere classified, R10.11 - Right upper quadrant pain HIV Ab/Ag Today K76.0 - Fatty (change of) liver, not elsewhere classified, R10.11 - Right upper quadrant pain Transglutaminase IgA Today K76.0 - Fatty (change of) liver, not elsewhere classified, R10.11 - Right upper quadrant pain Smooth Muscle Antibody Today K76.0 - Fatty (change of) liver, not elsewhere classified, R10.11 - Right upper quadrant pain Mitochondrial Antibody Today K76.0 - Fatty (change of) liver, not elsewhere classified, R10.11 - Right upper quadrant pain Liver Panel Today K76.0 - Fatty (change of) liver, not elsewhere classified EGD/[place] Combo - GI Use Only Today R10.11 - Right upper quadrant pain, Z01.818 - Encounter for other preprocedural examination Transglutaminase Ab IgG Today K76.0 - Fatty (change of) liver, not elsewhere classified, R10.11 - Right upper quadrant pain H Pylori Breath Test Today K76.0 - Fatty (change of) liver, not elsewhere classified, R10.11 - Right upper quadrant pain Medications: New sodium,potassium,mag sulfates 17.5-3.13-1.6 gram (Suprep Bowel Prep Kit) 480 mL orally; FOR COLONOSCOPY PREP 354 mL 0RF Coding Level of Care Code New Pt Level 4 (63078) Diagnoses Hepatic steatosis K76.0 Right upper quadrant abdominal pain R10.11 Abdominal location: right upper quadrant Pre-op examination Z01.818 Time Spent (min) 52 Comment Very long appointment due to multiple issues
== END 2024-06-02 15:02 ==
PROVIDERS: PCP Internal Medicine; Visit Provider Nurse Practitioner
DX: K76.0 Fatty (change of) liver, not elsewhere classified (principal); R10.11 Right upper quadrant pain; Z01.818 Encounter for other preprocedural examination
CPT/HCPCS: 99204

== ENCOUNTER 2024-06-02 13:19 | Outpatient (REF) | payer OTHER, SELFPAY ==
[2024-06-02 16:45] LABS: Alanine Aminotransferase 30 U/L (0-40); Albumin Level 4.3 g/dL (3.5-5.0); Alkaline Phosphatase 76 U/L (39-117); Aspartate Amino Transferase 24 U/L (5-37); Bilirubin Direct 0.2 mg/dL (0.0-0.5); Bilirubin Total 0.7 mg/dL (0.0-1.0); Gamma Glutamyl Transpeptidase 41 U/L (11-51); Total Protein 7.6 g/dL (6.5-8.0)
[2024-06-02 16:49] LABS: Ferritin 119 ng/mL (20-250)
[2024-06-03 08:21] LABS: HIV AB/AG Nonreactive (Nonreactive); HIV Num 1 0.06 S/CO (0.00-0.99)
[2024-06-03 12:18] LABS: Alpha Fetoprotein 1.6 ng/mL (<6.1)
[2024-06-03 17:19] LABS: Transglutaminase Ab IgG <1.0 U/mL; Transglutaminase IgA <1.0 U/mL
[2024-06-04 12:47] LABS: Mitochondrial Antibodies NEGATIVE (NEGATIVE)
[2024-06-05 23:17] LABS: Smooth Muscle Antibody <20 U (<20)
[2024-06-09 20:04] LABS: Anti Nuclear Antibody Screen POSITIVE (NEGATIVE)
== END 2024-06-02 13:20 | disposition home or self-care (01) ==
LOC: HO.LAB 13:19
PROVIDERS: PCP Internal Medicine; Visit Provider Nurse Practitioner
DX: Z01.818 Encounter for other preprocedural examination (principal); Z11.4 Encounter for screening for human immunodeficiency virus [HIV]; R10.11 Right upper quadrant pain; K76.0 Fatty (change of) liver, not elsewhere classified
CPT/HCPCS: 36415; 80076; 82105; 82728; 82977; 86015; 86038; 86039; 86364; 86381; 87389; 99202

== ENCOUNTER 2024-06-04 09:10 | Outpatient (AMB) | payer OTHER, SELFPAY ==
--- NOTE | 2024-06-04 09:11 | A.OFFPC_ITS ---
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 Accompanied by: Self / Same As Patient Allergies Iodinated Contrast Media [IV CONTRAST] Allergy (Severe, Verified 06/04/24 09:11) ANAPHYLAXIS iodine Adverse Reaction (Severe, Verified 06/04/24 09:11) Anaphylaxis Tobacco use date assessed: 06/04/24 Dental Screening Dental Screen Date: 06/04/24 Did you have a dental visit in the last 12 months?: Yes Did you have a dental problem in the last 6 months where you did not have access to dental care?: No Was dental information given to patient?: Patient has dentist HPI Neurological diagnoses HPI Details 53-year-old obese male with a history of generalized anxiety disorder impaired glucose tolerance coming in for follow-up through Telehealth. Last seen in 03/01/2024. Patient has followed up with Gastroenterology for the fatty liver. Has had THC use which can cause GI symptoms. Patient is still vapes. Patient has generalized anxiety disorder has been follow-up with counseling on Wellbutrin and trazodone.MET with Swapna , concern on autism or aspergers- problem with eye contact. and has trouble with feeling of somebody else. Discussed about ADHD problems also. 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 [facility] Medical History (Updated 06/04/24 @ 17:25 by Gaye Miguel MD) Colon cancer screening LFT elevation Bruised kidney Surgical History S/P surgical manipulation of ankle joint Hx of shoulder surgery Family History Mother Diabetes Skin cancer Hypertension Thyroid disease Father Diabetes Sister Skin cancer Sister Skin cancer Sister No problems noted. Brother No problems noted. Brother No problems noted. Brother No problems noted. 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 1. Little interest or pleasure in doing things: more than half the days 2. Feeling down, depressed, or hopeless: more than half the days 3. Trouble falling or staying asleep, or sleeping too much: more than half the days 4. Feeling tired or having little energy: nearly every day 5. Poor appetite or overeating: more than half the days 6. Feeling bad about yourself - or that you are a failure or have let yourself or your family down: several days 7. Trouble concentrating on things, such as reading the newspaper or watching television: several days 8. Moving or speaking so slowly that other people could have noticed. Or the opposite - being so fidgety or restless that you have been moving around a lot more than usual: not at all 9. Thoughts that you would be better off or of hurting yourself in some way: not at all Total score: 13 Depression Screening Interpretation: Positive Depression Screening Done: Yes 34016 - PHQ-9 Billing: Yes Source: Developed by Drs. Alex Vo, Dena Davis, Man Ballesteros and colleagues, with an educational cheryl from [email or web address]. Thrive Questionnaire Date Thrive assessed: 06/04/24 I am a: Patient What is your living situation today?: I have a steady place to live Within the past 12 months, did the food you bought not last and you didn't have the money to get more?: Never true Within the past 12 months, did you worry whether your food would run out before you got money to buy more?: Never true Do you have trouble paying for medicines?: No Do you have trouble getting transportation to medical appointments?: No Do you have trouble paying your heating and electricity bill?: No Do you have trouble taking care of your child, family member or friend?: No Do you have trouble with day-to-day activities such as bathing, preparing meals, shopping, managing finances, etc.?: No Are you currently unemployed and looking for a job?: No Are you interested in more education?: No Please select the resources that you would like help with: None Currently or been in a relationship where the following occur: No concerns reported THRIVE Score: 0 AUDIT C Alcohol Use Questionnaire (AUDIT-C) 1. How often do you have a drink containing alcohol?: 2-3 times a week 2. How many drinks containing alcohol do you have on a typical day when you are drinking?: 3 or 4 3. How often do you have six or more drinks on one occasion?: Never Total Score: 4 NANCY-7 AMB Questionnaire NANCY-7 Date NANCY - 7 assessed: 06/04/24 Feeling nervous, anxious, or on edge: 0 = Not at all Not being able to stop or control worryin = Not at all Worrying too much about different things: 0 = Not at all Trouble relaxin = Not at all Being so restless that it is hard to sit still: 0 = Not at all Becoming easily annoyed or irritable: 0 = Not at all Feeling afraid as if something awful might happen: 0 = Not at all Total NANCY-7 score (0-4 normal; 5-9 mild; 10-14 moderate; 15-21 severe): 0 Source: Developed by Drs. Alex Vo, Dena Davis, Man Ballesteros and colleagues, with an educational cheryl from [email or web address]. Physical exam (Primary Care) Tobacco/Smoking Status: Tobacco use Status Tobacco use date assessed 06/04/24 06/04/24 09:13 Patient Tobacco Use Status Never used Tobacco 06/04/24 09:13 Tobacco use type 06/02/24 13:50 e-Cigarette/Vaping Use Currently Using (THC ) 06/04/24 09:13 PHQ-9: PHQ-9 Score PHQ-9: Total score 13 06/04/24 10:29 Depression Screening Interpretation: Positive Thrive Assessment: Date of Thrive Assessment Date Thrive assessed 06/04/24 06/04/24 09:13 Currently or been in a relationship where the following occur: No concerns reported Telehealth Telehealth Telehealth Platform: Telephone Location of provider rendering services: practice address Location of patient: address on file Patient Identification confirmed using: Name, : Yes Telehealth method: voice only Patient verbally consented to treatment: Yes Patient verbally consented to billing insurance company: Yes Patient informed of any privacy concerns related to visit: Yes Minutes spent on Phone/Video with Pt.: 15 Assessment and Plan Assessment & Plan (1) Adult ADHD: Code(s): F90.9 - Attention-deficit hyperactivity disorder, unspecified type Plan: Concern on psychiatric problem and referral to neuro psychiatrist done Orders: Referrals Neuropsychiatry Referral F90.9 - Attention-deficit hyperactivity disorder, unspecified type Coding Level of Care Code Tele Est Pt Level 3 (44880) Diagnoses Adult ADHD F90.9
== END 2024-06-04 11:32 | disposition home or self-care (01) ==
LOC: HO.HMGH 09:10
PROVIDERS: PCP Internal Medicine; Visit Provider Internal Medicine
DX: F90.9 Attention-deficit hyperactivity disorder, unspecified type (principal)
CPT/HCPCS: 99213

== ENCOUNTER 2024-07-10 13:41 | Emergency (ER) | payer OTHER, SELFPAY ==
--- NOTE | ~2024-07-10 | CT_ITS ---
EXAMINATION: CT ABDOMEN AND PELVIS WITHOUT CONTRAST CLINICAL INFORMATION: Right upper quadrant/right flank pain for 4 months. COMPARISON: None available. TECHNIQUE: Multidetector volumetric imaging was performed from the superior aspect of the liver through the pubic symphysis. Sagittal and coronal reformatted images were obtained on the technologist's workstation. This CT examination was performed using dose optimization techniques as appropriate, variously including the following: *Automated exposure control *Adjustment of mA and/or kV according to patient size (this includes techniques or standardized protocols for targeted exams where dose is matched to indication/reason for exam; i.e. extremities or head) *Use of iterative reconstruction technique DLP: 863 mGy-cm FINDINGS: LUNG BASES: The lung bases appear clear, with no evidence of inflammation or nodules. LIVER, GALLBLADDER, AND BILIARY TREE: The liver appears unremarkable in size, shape, and attenuation. No focal hepatic lesion or biliary ductal dilatation is appreciated. Unremarkable appearance of the gallbladder. PANCREAS: Unremarkable SPLEEN: Unremarkable ADRENAL GLANDS: Unremarkable KIDNEYS AND URETERS: Right mid to lower renal cortical scar. The kidneys otherwise appear unremarkable in size, shape, and attenuation. No hydronephrosis, hydroureter, or calculi seen. BLADDER: Unremarkable GASTROINTESTINAL TRACT: Unremarkable appearance of the stomach and small bowel. Few, scattered sigmoid diverticula without evidence of diverticulitis. Normal-appearing distal ileum and vermiform appendix. ABDOMINAL WALL: Approximately 4 cm umbilical hernia containing only fat. LYMPH NODES/MESENTERY: Nonspecific mary mesentery. No evidence of adenopathy by size criteria. VASCULAR: Unremarkable PELVIC VISCERA: Unremarkable OSSEOUS STRUCTURES: Mild disc space narrowing and bilateral neuroforaminal narrowing at L5-S1. CT/CT abdomen pelvis wo IV con IMPRESSION: No evidence of urinary tract stone or hydronephrosis. Nonspecific mary mesentery. Differential diagnosis is extensive and includes, but is not limited to, mesenteric panniculitis, idiopathic, neoplastic, etc. Electronically signed by: Christopher Benavides MD 07/10/2024 07:03 PM EDT
[2024-07-10 13:57] VITALS: BP 175/79; PULSE 91; RESP 16; TEMP 36.6; O2SAT 98; BMI 35.0
--- NOTE | 2024-07-10 13:57 | ED_ITS ---
HPI - Abdominal Pain General Chief Complaint: Abdominal Pain Stated Complaint: abd pain Time Seen by Provider: 07/10/24 17:06 Source: patient Mode of arrival: ambulatory Limitations: no limitations History of Present Illness ED Provider: yobani DE LA FUENTE narrative: Patient is a 54-year-old male presenting to the emergency department with complaint of right upper quadrant abdominal pain as well as right flank pain for the past 4 months. States he has the pain daily and it is typically around a 1 or 2/10. Today after eating the pain increased to a 6/10. He also reports that he noted a firm mass around his umbilical area during this increased pain. Denies any nausea, vomiting, diarrhea or constipation. States pain did somewhat improve after having a bowel movement. States pain has returned to 1/10. Denies fevers. Has seen PCP for the right upper quadrant pain, had an ultrasound and was advised of a finding of hepatic steatosis. He reports making changes to his diet including decreasing sugar and removing alcohol and states that his labs improved. Specifically requesting CT scan of abdomen as he is concerned about cancer/mass. Denies recent weight loss or night sweats. Reports he did have a 20 lb weight loss at onset of symptoms around 4 months ago but has since regained this weight. Denies hematochezia or melena. Denies any urinary symptoms. MD elicited complaint: abdominal pain Onset (ago): month(s) Pain Consistency: constant and colicky Location: RUQ and R flank Pain scale (0-10): 1 Quality: stabbing Radiation: R flank Exacerbating factors: eating Associated symptoms: denies other symptoms Related Data Home Medications ?Medication ?Instructions ?Recorded ?Confirmed B-complex with vitamin C 1 tab PO DAILY 02/23/24 04/19/24 cyanocobalamin (vitamin B-12) 1,000 mcg PO DAILY 02/23/24 04/19/24 1,000 mcg tablet trazodone 50 mg tablet 50 mg PO BEDTIME PRN 02/23/24 04/19/24 Previous Rx's ?Medication ?Instructions ?Recorded bupropion HCl 150 mg 24 hr tablet, 150 mg PO QAM #90 tabs 04/22/24 extended release sodium,potassium,mag sulfates 17.5 480 ml PO .COMPLEX #354 mL 06/02/24 gram-3.13 gram-1.6 gram oral soln (Suprep Bowel Prep Kit) Allergies Allergy/AdvReac Type Severity Reaction Status Date / Time Iodinated Contrast Media Allergy Severe ANAPHYLAXIS Verified 07/10/24 14:03 [IV CONTRAST] iodine AdvReac Severe Anaphylaxis Verified 07/10/24 14:03 Review of Systems Review of Systems As per HPI Yes all other systems are reviewed and are negative Constitutional: Reports as per HPI [facility] Past Medical History Medical History (Updated 07/11/24 @ 00:00 by Pilar Smith) Colon cancer screening LFT elevation Bruised kidney Surgical History S/P surgical manipulation of ankle joint Hx of shoulder surgery Family History Family History Mother Diabetes Skin cancer Hypertension Thyroid disease Father Diabetes Sister Skin cancer Sister Skin cancer Sister No problems noted. Brother No problems noted. Brother No problems noted. Brother No problems noted. Other Mental health disorder Substance use disorder Social History Social History (Updated 06/02/24 @ 13:29 by Bre [facility]) Housing: Apartment Alcohol intake: current Comment: 2x a week 3 beers Patient Tobacco Use Status: Never used Tobacco Years Smoked: smoke cannabis Smoked in Last 30 Days: No e-Cigarette/Vaping Use: Currently Using (THC ) Second Hand Smoke Exposure: Yes Use of substances other than those prescribed or required for medical reasons: Yes Substance Use Type: Marijuana Advance Directives: No Advance Directives Information Provided: No service: No Current occupational status: employed 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 Blood pressure elevated. Heart rate normal. Respiratory rate normal. Temperature normal. Oxygen saturation normal. Const General: cooperative, healthy appearing and no acute distress Orientation/consciousness: oriented to person, oriented to place, oriented to time and patient oriented x3 Limitations: no limitations HENMT Head: Yes normocephalic and Yes atraumatic Ears: external ears normal General nose exam: Normal external nose present Face and sinus: Yes face symmetric Mouth: oropharynx normal and moist mucous membranes Throat: Yes uvula midline Eyes Pupils: Equal, round and reactive pupils present Neck Neck: Yes normal visual inspection and Yes supple Resp Effort & Inspection: normal respiratory effort and able to speak in complete sentences Auscultation: clear to auscultation bilaterally Cardio Rate: regular rate Rhythm: regular rhythm Heart sounds: S1 normal heart sound present and S2 normal heart sound present GI Inspection: Yes normal to inspection Palpation (GI): Soft to palpation, nontender, no guarding, Hernia present umbilical and No Rebound tenderness present Auscultation: normoactive bowel sounds General: Yes no CVA tenderness Back/Spine/Pelvis Back: no CVA tenderness Skin General skin exam: elasticity normal and turgor normal Neuro General: oriented to person, oriented to place, oriented to time, patient oriented x3, moves all extremities, no focal motor deficits and CN's II-XI intact bilaterally Cranial nerves: Yes Equal, round and reactive pupils present Cognition (Neuro): normal cognition Extrem General: Yes full ROM, Yes no pedal edema and Yes no calf tenderness Psych Mental Status: mental status grossly normal Affect: normal affect Thought process: Normal thought process present Course Course Course Narrative: This is an RME: Additional HPI, ROS, PE not included below will be deferred to primary provider. RME assessment and note performed by: Ryann Bazan PA-C This is a 60-jyfz-ath-male, with a hx of hernia, who presents to the ER with complaints of abdominal pain. Reports that while he was on the toliet having a bowel movement, he noticed swelling, hardness and abdominal discomfort. Reports that he took some antigas and tums medication. Reports that his pain was severe and the had abdominal pain to the touch. Reports that he has had pain in his right upper abdomen in the last 3-4 months > saw January Nathan in May. Abdomen is soft, nontender. Plan:Labs, ekg, further ER eval needed Reevaluation(s) Reevaluation #1: Sign-out was given to me and my colleague, Justyna Rueda PA-C pending CT scan report and disposition. CT scan was performed and reviewed as nonspecific mary mesentery, DDX extensive including mesenteric panniculitis, idopathc, neopladtic, etc. No evidence of urinary tract stone or hydronephrosis. Discussed finding with my attending physician, Dr. Chapman who request clarification with radiologist. [facility] was called infiltration of the mesentery, which is very nonspecific per the radiologist and often times does not mean anything however reports that the differential diagnosis for this finding is extensive. Patient is feeling well, blood work reassuring. I advised patient to follow up with his GI specialist on Friday. He understands and agrees with plan. Patient stable discharge. Time: 20:09 Medical Decision Making Medical Decision Making [facility] Narrative: Patient is a 54-year-old male presenting to the emergency department with complaint of right upper quadrant abdominal pain as well as right flank pain for the past 4 months. On exam patient is awake, A+Ox3, VS WNL, afebrile, normal neurological exam without focal deficits, physical exam findings as above. Given reported symptoms and physical exam findings, initial differential includes cholecystitis, cholangitis, choledocolithiasis, renal/ureteral calculi, umbilical hernia. Do not suspect incarcerated hernia. Labs unremarkable. Discussed with patient that based on physical exam findings and lab results, CT A/P not indicated at this time, however, patient insistent that he rule out malignancy/mass. CT A/P ordered without contrast as patient has anaphylaxis allergy to contrast. Patient signed out to [facility] [place] pending results of CT. If no indication for admission, will refer to general surgery for follow up regarding hernia. Patient has already seen GI for his symptoms. Differential Diagnosis Differential Diagnoses: The differential diagnosis associated with the presentation includes As per MDM. Lab Data [facility] Lab Attestation statement: I reviewed the patient's lab results. As per [facility]. 07/10/24 14:30 07/10/24 14:30 Labs: Lab Results 07/10/24 Range/Units 14:30 WBC 6.2 (4.8-10.8) X10*3/uL RBC 4.14 L (4.60-5.80) X10*6/uL Hgb 14.0 (14.0-18.0) g/dl Hct 40.1 L (42.0-52.0) % MCV 96.9 (80.0-98.0) fL MCH 33.8 H (27.0-33.0) pg MCHC 34.9 (31.0-36.0) g/dl RDW 12.5 (11.0-16.0) % Plt Count 213 (160-400) X10*3/uL MPV 9.1 L (9.4-12.4) fL Immature Gran % (Auto) 0.2 (0.0-0.4) % Neut % (Auto) 67.5 (45-73) % Lymph % (Auto) 22.3 (20-40) % Wolfe % (Auto) 6.6 (2-11) % Eos % (Auto) 2.3 (0-4) % Baso % (Auto) 1.1 (0-2) % Lymph # (Auto) 1.4 (1.2-4.9) X10*3/uL Wolfe # (Auto) 0.4 (0.1-1.2) X10*3/uL Eos # (Auto) 0.1 (0.0-0.4) X10*3/uL Baso # (Auto) 0.1 (0.0-0.2) X10*3/uL Abs Immat Gran (auto) 0.01 (0.00-0.03) X10*3/uL Absolute Neuts (auto) 4.2 (2.0-8.3) x10*3/uL Absolute Nucleated RBC 0.000 (0.0-0.012) X10*3/uL Nucleated RBC % (auto) 0.0 (0.0-0.2) /100WBC ESR 4 (0-15) MM/HR Sodium 142 (135-145) mmol/L Potassium 4.9 (3.3-5.1) mmol/L Chloride 107 (96-108) mmol/L Carbon Dioxide 28 (22-29) mmol/L Anion Gap 12 (12-20) BUN 14 (9-16) mg/dL Creatinine 0.81 (0.5-1.4) mg/dL Estim Creat Clear Calc 122.0 Estimated GFR > 60 Random Glucose 129 H (60-115) mg/dL Calcium 9.5 (8.4-10.2) mg/dL Total Bilirubin 0.4 (0.0-1.0) mg/dL Direct Bilirubin 0.1 (0.0-0.5) mg/dL AST 22 (5-37) U/L ALT 31 (0-40) U/L Alkaline Phosphatase 68 (39-117) U/L Total Creatine Kinase 45 (38-174) U/L Troponin I High Sens < 2.7 (<3.5-35.0) ng/L C-Reactive Protein 0.26 (< or = 0.50) mg/dL Total Protein 7.1 (6.5-8.0) g/dL Albumin 4.0 (3.5-5.0) g/dL Lipase 20 (8-78) U/L Radiology Impression Discussion of test interpretation with radiology: I have reviewed the radiologist's reading. Radiologist Impression: EXAMINATION: CT ABDOMEN AND PELVIS WITHOUT CONTRAST CLINICAL INFORMATION: Right upper quadrant/right flank pain for 4 months. COMPARISON: None available. TECHNIQUE: Multidetector volumetric imaging was performed from the superior aspect of the liver through the pubic symphysis. Sagittal and coronal reformatted images were obtained on the technologist's workstation. This CT examination was performed using dose optimization techniques as appropriate, variously including the following: *Automated exposure control *Adjustment of mA and/or kV according to patient size (this includes techniques or standardized protocols for targeted exams where dose is matched to indication/reason for exam; i.e. extremities or head) *Use of iterative reconstruction technique DLP: 863 mGy-cm FINDINGS: LUNG BASES: The lung bases appear clear, with no evidence of inflammation or nodules. LIVER, GALLBLADDER, AND BILIARY TREE: The liver appears unremarkable in size, shape, and attenuation. No focal hepatic lesion or biliary ductal dilatation is appreciated. Unremarkable appearance of the gallbladder. PANCREAS: Unremarkable SPLEEN: Unremarkable ADRENAL GLANDS: Unremarkable KIDNEYS AND URETERS: Right mid to lower renal cortical scar. The kidneys otherwise appear unremarkable in size, shape, and attenuation. No hydronephrosis, hydroureter, or calculi seen. BLADDER: Unremarkable GASTROINTESTINAL TRACT: Unremarkable appearance of the stomach and small bowel. Few, scattered sigmoid diverticula without evidence of diverticulitis. Normal-appearing distal ileum and vermiform appendix. ABDOMINAL WALL: Approximately 4 cm umbilical hernia containing only fat. LYMPH NODES/MESENTERY: Nonspecific mary mesentery. No evidence of adenopathy by size criteria. VASCULAR: Unremarkable PELVIC VISCERA: Unremarkable OSSEOUS STRUCTURES: Mild disc space narrowing and bilateral neuroforaminal narrowing at L5-S1. CT/CT abdomen pelvis wo IV con IMPRESSION: No evidence of urinary tract stone or hydronephrosis. Nonspecific mary mesentery. Differential diagnosis is extensive and includes, but is not limited to, mesenteric panniculitis, idiopathic, neoplastic, etc. Electronically signed by: Christopher Benavides MD 07/10/2024 07:03 PM EDT RP Dictated By: Christopher Benavides External Record Review External record reviewed: Inpatient record, Office record and Outpatient record Discharge Plan Discharge Clinical Impression: Hernia, umbilical Abdominal pain Qualifiers: Abdominal location: right upper quadrant Qualified Code(s): R10.11 - Right upper quadrant pain Patient Disposition: Home, Self-Care Instructions: Umbilical Hernia (ED), Abdominal Pain (ED) Additional Instructions: You have been evaluated in the emergency department today for abdominal pain. Your evaluation did not show evidence of medical conditions requiring emergent intervention at this time. Please schedule an appointment with your primary care physician. You are being referred to general surgery for your hernia. Return to the emergency department if you experience worsening or uncontrolled pain, fevers 100.4? F or greater, recurrent vomiting, inability to tolerate food or fluids by mouth, bloody stools or vomit, black or tarry stools, or any other concerning symptoms. Prescriptions: No Action bupropion HCl 150 mg tablet extended release 24 hr 150 mg PO QAM Qty: 90 0RF trazodone 50 mg tablet 50 mg PO BEDTIME PRN B-complex with vitamin C Tablet 1 tab PO DAILY cyanocobalamin (vitamin B-12) 1,000 mcg tablet 1,000 mcg PO DAILY sodium,potassium,mag sulfates [Suprep Bowel Prep Kit] 17.5-3.13-1.6 gram recon soln 480 ml PO .COMPLEX Qty: 354 0RF Rx Instructions: 480 mL orally; FOR COLONOSCOPY PREP Referrals: [facility] [place] General Surgeons [Provider Group] Interventions: ED Discharge Assessment Last Done: 07/10/24 20:21 Discharge Date/Time: 07/10/24 20:24 Print Language: [place]
--- NOTE | 2024-07-10 14:04 | ECG_ITS ---
Test Reason : epigastric pain Blood Pressure : / mmHG Vent. Rate : 079 BPM Atrial Rate : 079 BPM P-R Int : 168 ms QRS Dur : 084 ms QT Int : 346 ms P-R-T Axes : 046 027 032 degrees QTc Int : 396 ms Normal sinus rhythm Normal ECG No previous ECGs available Referred By: Ryann Bazan Electronically Signed By:PRASHANT ALLAN
[2024-07-10 14:36] LABS: MANUAL DIFF FLAG NO
[2024-07-10 14:44] LABS: Basophils Absolute Auto 0.1 X10*3/uL (0.0-0.2); Basophils Percent Auto 1.1 % (0-2); Eosinophils Absolute Auto 0.1 X10*3/uL (0.0-0.4); Eosinophils Percent Auto 2.3 % (0-4); Hematocrit 40.1 % (42.0-52.0); Imm Gran Abs Auto 0.01 X10*3/uL (0.00-0.03); Imm Gran Pct Auto 0.2 % (0.0-0.4); Lymphocytes Absolute Auto 1.4 X10*3/uL (1.2-4.9); Lymphocytes Percent Auto 22.3 % (20-40); Mean Corpuscular HGB Conc 34.9 g/dl (31.0-36.0); Mean Corpuscular Hemoglobin 33.8 pg (27.0-33.0); Mean Corpuscular Volume 96.9 fL (80.0-98.0); Mean Platelet Volume 9.1 fL (9.4-12.4); Monocytes Absolute Auto 0.4 X10*3/uL (0.1-1.2); Monocytes Percent Auto 6.6 % (2-11); Neutrophils Absolute Auto 4.2 x10*3/uL (2.0-8.3); Neutrophils Percent Auto 67.5 % (45-73); Platelet Count 213 X10*3/uL (160-400); Red Blood Count 4.14 X10*6/uL (4.60-5.80); Red Cell Distribution Width 12.5 % (11.0-16.0); White Blood Count 6.2 X10*3/uL (4.8-10.8)
[2024-07-10 14:51] LABS: Alanine Aminotransferase 31 U/L (0-40); Alkaline Phosphatase 68 U/L (39-117); Anion Gap 12 (12-20); Aspartate Amino Transferase 22 U/L (5-37); Bilirubin Direct 0.1 mg/dL (0.0-0.5); Bilirubin Total 0.4 mg/dL (0.0-1.0); Blood Urea Nitrogen 14 mg/dL (9-16); C Reactive Protein 0.26 mg/dL (< or = 0.50); Calcium 9.5 mg/dL (8.4-10.2); Carbon Dioxide 28 mmol/L (22-29); Chloride 107 mmol/L (96-108); Estimated Glomerular Filt Rate > 60; Glucose Random 129 mg/dL (60-115); Lipase 20 U/L (8-78); Potassium 4.9 mmol/L (3.3-5.1); Sodium 142 mmol/L (135-145); Total Protein 7.1 g/dL (6.5-8.0)
[2024-07-10 14:57] LABS: Troponin-I High Sensitivity < 2.7 ng/L (<3.5-35.0)
[2024-07-10 15:24] LABS: Erythrocyte Sedimentation Rate 4 MM/HR (0-15)
[2024-07-10 19:50] VITALS: BP 142/85; PULSE 82; RESP 18; TEMP 36.7; O2SAT 100
[2024-07-10 20:21] VITALS: BP 142/85; PULSE 82; RESP 18; TEMP 36.7; O2SAT 100
== END 2024-07-10 20:24 | disposition home or self-care (01) ==
PROVIDERS: Physician Assistant Medical; Emergency Provider Emergency Medicine; PCP Internal Medicine
DX: K42.9 Umbilical hernia without obstruction or gangrene (principal); R10.11 Right upper quadrant pain; R10.13 Epigastric pain
CPT/HCPCS: 36415; 74176; 80048; 80076; 82550; 83690; 84484; 85025; 85652; 86140; 93005; 99284

== ENCOUNTER 2024-08-18 12:25 | Outpatient (AMB) | payer OTHER, SELFPAY ==
[2024-08-18 12:37] VITALS: BP 108/62; BMI 35.7
--- NOTE | 2024-08-18 12:37 | A.OFFPC_ITS ---
Vital Signs 08/18/24 12:37 Height 5 ft 8 in Weight 235 lb BMI 35.7 BP 108/62 Blood Pressure Location Lt brachial Position Sitting Intake Visit Reasons: PE Allergies Iodinated Contrast Media [IV CONTRAST] Allergy (Severe, Verified 08/18/24 12:38) ANAPHYLAXIS iodine Adverse Reaction (Severe, Verified 08/18/24 12:38) Anaphylaxis Tobacco use date assessed: 06/04/24 Dental Screening Dental Screen Date: 06/04/24 HPI PE HPI Details 54-year-old male with a history of impai red glucose tolerance generalized anxiety disorder hepatic steatosis last seen in May 2024 with concerns about adult ADHD. Patient was referred to the neuro psychiatrist. Patient is here for physical exam. Chart noted 07/10/2024 ER visit with right upper quadrant pain for 4 months question of a for mass on the umbilical area. Patient did have a CT scan done showing no evidence of renal calculi, question of mary mesentery. Diagnosis of umbilical hernia. 4 cm patient did see gastroenterology already in 06/01/2024 diagnosis of hepatic steatosis concern about cannabinoid hyperemesis. friday cold, negative covid on antibiotic for dental. colon test and egd 10/2023 scheduled. because of the cough and cold will reschedule PE. cold 5 days congestion nasal first then 3 days ago chest congestion, Flu shot friday am, took amox 2x a day for dental , better now. no fevers, mild prodcuctive , expectorant mucinex. [address]Q pain [address] scan done already [facility] Medical History (Updated 08/18/24 @ 15:00 by Gaye Miguel MD) Colon cancer screening LFT elevation Bruised kidney Surgical History S/P surgical manipulation of ankle joint Hx of shoulder surgery Family History Mother Diabetes Skin cancer Hypertension Thyroid disease Father Diabetes Sister Skin cancer Sister Skin cancer Sister No problems noted. Brother No problems noted. Brother No problems noted. Brother No problems noted. Other Mental health disorder Substance use disorder Social History (Updated 06/02/24 @ 13:29 by ESTEBAN Perez) Housing: Apartment Alcohol intake: current Comment: 2x a week 3 beers Patient Tobacco Use Status: Never used Tobacco Tobacco use type: Cigarette Years Smoked: smoke cannabis e-Cigarette/Vaping Use: Currently Using (THC ) Second Hand Smoke Exposure: Yes Substance Use Type: Marijuana service: No Current occupational status: employed Current occupation: [employer] Current occupational exposures/hazards: No Cognitive needs: No Hearing needs: No Vision needs: Yes Questionnaire PHQ-9 Over the last 2 weeks, how often have you been bothered by any of the following problems? 1. Little interest or pleasure in doing things: more than half the days 2. Feeling down, depressed, or hopeless: more than half the days 3. Trouble falling or staying asleep, or sleeping too much: more than half the days 4. Feeling tired or having little energy: nearly every day 5. Poor appetite or overeating: more than half the days 6. Feeling bad about yourself - or that you are a failure or have let yourself or your family down: nearly every day 7. Trouble concentrating on things, such as reading the newspaper or watching television: more than half the days 8. Moving or speaking so slowly that other people could have noticed. Or the opposite - being so fidgety or restless that you have been moving around a lot more than usual: not at all 9. Thoughts that you would be better off or of hurting yourself in some way: not at all Total score: 16 Source: Developed by Drs. Alex Vo, Dena Davis, Man Ballesteros and colleagues, with an educational cheryl from [employer]. Thrive Questionnaire Date Thrive assessed: 08/16/24 I am a: Patient What is your living situation today?: I have a steady place to live Within the past 12 months, did the food you bought not last and you didn't have the money to get more?: Never true Within the past 12 months, did you worry whether your food would run out before you got money to buy more?: Never true Do you have trouble paying for medicines?: No Do you have trouble getting transportation to medical appointments?: No Do you have trouble paying your heating and electricity bill?: No Do you have trouble taking care of your child, family member or friend?: No Do you have trouble with day-to-day activities such as bathing, preparing meals, shopping, managing finances, etc.?: No Are you currently unemployed and looking for a job?: I choose not to answer this question Are you interested in more education?: No Please select the resources that you would like help with: None Currently or been in a relationship where the following occur: I choose not to answer THRIVE Score: 0 AUDIT C Alcohol Use Questionnaire (AUDIT-C) 1. How often do you have a drink containing alcohol?: 2-4 times a month 2. How many drinks containing alcohol do you have on a typical day when you are drinking?: 3 or 4 3. How often do you have six or more drinks on one occasion?: Never Total Score: 3 NANCY-7 AMB Questionnaire NANCY-7 Date NANCY - 7 assessed: 06/04/24 Feeling nervous, anxious, or on edge: 3 = Nearly every day Not being able to stop or control worryin = Nearly every day Worrying too much about different things: 3 = Nearly every day Trouble relaxin = Nearly every day Being so restless that it is hard to sit still: 1 = Several days Becoming easily annoyed or irritable: 0 = Not at all Feeling afraid as if something awful might happen: 2 = More than half the days Total NANCY-7 score (0-4 normal; 5-9 mild; 10-14 moderate; 15-21 severe): 15 Source: Developed by Drs. Alex Vo, Dena Davis, Man Ballesteros and colleagues, with an educational cheryl from [employer]. Review of Systems Const Denies poor appetite and Denies weakness Eyes Denies no additional complaints ENT Reports Normal hearing present, Denies dizziness, Denies nasal congestion, Denies tinnitus and Denies sore throat Card Denies chest pain, Denies syncope, Denies rapid heart rate and Denies dyspnea Resp Denies cough and Denies dyspnea GI Denies change in stool character, Reports constipation, Denies diarrhea, Denies nausea and Denies vomiting Denies dysuria and Denies urinary frequency Neuro Reports Normal hearing present, Denies confusion, Denies dizziness, Denies syncope and Denies weakness Psych Denies confusion Physical exam (Primary Care) Vital Signs: Last Vital Signs BP 108/62 08/18/24 12:37 BMI result Body Mass Index 35.7 Tobacco/Smoking Status: Tobacco use Status Tobacco use date assessed 06/04/24 08/18/24 12:42 Patient Tobacco Use Status Never used Tobacco 08/18/24 12:42 Tobacco use type Cigarette 08/18/24 12:42 e-Cigarette/Vaping Use Currently Using (THC ) 08/18/24 12:42 PHQ-9: PHQ-9 Score PHQ-9: Total score 16 08/18/24 12:42 Thrive Assessment: Date of Thrive Assessment Date Thrive assessed 08/16/24 08/18/24 12:42 Currently or been in a relationship where the following occur: I choose not to answer Const General: No confusion Orientation/consciousness: No confusion HENMT Head: Yes normocephalic Ears: external ears normal and TM's normal bilaterally Face and sinus: Yes normal facial exam Mouth: moist mucous membranes Throat: Yes tonsils normal Eyes Conjunctivae: conjunctivae normal Pupils: Equal, round and reactive pupils present and Pupil accommodation reflex normal Direct Ophthalmoscopy: normal light reflex Neck Neck: No lymphadenopathy Thyroid: Thyroid normal Chest Chest palpation & inspection: normal inspection of the chest Resp Effort & Inspection: normal respiratory effort and no audible wheezes Auscultation: clear to auscultation bilaterally, no crackles, no wheezes and lung sounds not diminished Cardio Rate: regular rate Rhythm: regular rhythm Peripheral pulses: radial pulses present and dorsalis pedis present GI Palpation (GI): no masses Auscultation: normal bowel sounds and normoactive bowel sounds Rectal Exam - Male: Yes deferred Skin General skin exam: no rashes or lesions noted Rashes: no rashes Neuro General: No confusion Cranial nerves: Yes Equal, round and reactive pupils present and Yes Normal hearing present Cognition (Neuro): normal cognition Gait exam (Neuro): Normal gait present Motor exam (neuro): 5/5 motor strength present throughout Deep tendon reflexes (DTR's): Right brachioradialis reflex intensity grade: 2+, Left brachioradialis reflex intensity grade: 2+, Right patellar reflex intensity grade: 2+ and Left patellar reflex intensity grade: 2+ Extrem General: No edema Coding Level of Care Code Est Pt Level 4 (17402) Diagnoses Impaired fasting blood sugar R73.01 Hepatic steatosis K76.0 Generalized anxiety disorder F41.1 Umbilical hernia without obstruction and without gangrene K42.9 Obstruction and gangrene presence: without obstruction or gangrene Viral upper respiratory tract infection J06.9 URI type: unspecified viral URI Cannabinoid hyperemesis syndrome R11.2; F12.90 Assessment & Plan Assessment & Plan (1) Impaired fasting blood sugar: Code(s): R73.01 - Impaired fasting glucose Category: Medical Plan: Decrease the amount of carbohydrate intake, pasta, bread, rice and potatoes are all sugar and that is aside from all the sweet stuff, remember that fruits are good but they are Sweet also. (2) Hepatic steatosis: Comment: Baseline Laboratory Tests 02/25/24 WBC 5.1 Hgb 14.2 Hct 40.7 L MCV 97.8 MCH 34.1 H Plt Count 239 Estimated GFR > 60 Total Bilirubin 0.6 AST 45 H ALT 85 H Alkaline Phosphatase 57 Free T4 1.22 03/25/24 09:01 Hep Bs Antigen Negative Hep Bs Antibody NONREACTIVE Hep B Core Total Ab Nonreactive Hepatitis C Ab (EIA) Nonreactive CURRENT LABS US ABD 03/23/24 FINDINGS: PANCREAS: Limited visualization of pancreatic tail and head. Imaged portion of pancreatic body is unremarkable. ABDOMINAL AORTA: Limited visualization particularly of the mid and proximal abdominal aorta. Imaged portions of the [id number] abdominal aorta are unremarkable. INFERIOR VENA CAVA: Visualized portions are normal. LIVER: Increased hepatic parenchymal heterogeneity and echogenicity could be associated with hepatocellular disease/hepatic steatosis and substantially limits visualization. Correlation with liver function tests and clinical exam recommended to determine further management. Severely limited visualization, with particularly poor visualization of the left hepatic lobe. GALLBLADDER: No gallstones. No gallbladder wall thickening. COMMON BILE DUCT: Normal in caliber measuring 0.20 cm in diameter. RIGHT KIDNEY: No hydronephrosis. No renal calculi. Limited visualization. The kidney measures 10.3 cm in maximum dimension. LEFT KIDNEY: No hydronephrosis. No renal calculi. Limited visualization. The kidney measures 12.9 cm in maximum dimension. SPLEEN: Normal. The spleen measures 9.9 cm in maximum dimension. FREE FLUID: None. US/US abdomen complete IMPRESSION: Increased hepatic parenchymal heterogeneity and echogenicity could be associated with hepatocellular disease/hepatic steatosis and substantially limits visualization. Correlation with liver function tests and clinical exam recommended to determine further management. Code(s): K76.0 - Fatty (change of) liver, not elsewhere classified Category: Medical Plan: Low-fat diet and exercise, patient has met with Gastroenterology. (3) Generalized anxiety disorder: Code(s): F41.1 - Generalized anxiety disorder Category: Medical Plan: Continue with present medication. Discussed about counseling and therapy. (4) Hernia, umbilical: Code(s): K42.9 - Umbilical hernia without obstruction or gangrene Category: Medical Qualifiers: Obstruction and gangrene presence: without obstruction or gangrene Qualified Code(s): K42.9 - Umbilical hernia without obstruction or gangrene Plan: avoid heavy lifting (5) Upper respiratory infection: Code(s): J06.9 - Acute upper respiratory infection, unspecified Category: Medical Qualifiers: URI type: unspecified viral URI Qualified Code(s): J06.9 - Acute upper respiratory infection, unspecified Plan: resolving , keep well hydrated (6) Cannabinoid hyperemesis syndrome: Code(s): R11.2 - Nausea with vomiting, unspecified; F12.90 - Cannabis use, unspecified, uncomplicated Category: Medical Plan: GI indicated might have this problem Medications: New sertraline 25 mg PO DAILY 30 tabs 3RF F41.1 - Generalized anxiety disorder
== END 2024-08-18 13:04 | disposition home or self-care (01) ==
LOC: HO.HMCH 12:26
PROVIDERS: PCP Internal Medicine; Visit Provider Internal Medicine
DX: R73.01 Impaired fasting glucose (principal); K76.0 Fatty (change of) liver, not elsewhere classified; F41.1 Generalized anxiety disorder; K42.9 Umbilical hernia without obstruction or gangrene; J06.9 Acute upper respiratory infection, unspecified; R11.2 Nausea with vomiting, unspecified; F12.90 Cannabis use, unspecified, uncomplicated

== ENCOUNTER → 2024-08-18 12:25 | Outpatient (BNVA) | payer OTHER, SELFPAY | PROVIDERS: PCP Internal Medicine; Visit Provider Internal Medicine | DX: R73.01 Impaired fasting glucose (principal); K76.0 Fatty (change of) liver, not elsewhere classified; F41.1 Generalized anxiety disorder; K42.9 Umbilical hernia without obstruction or gangrene; J06.9 Acute upper respiratory infection, unspecified; R11.2 Nausea with vomiting, unspecified; F12.90 Cannabis use, unspecified, uncomplicated; Z71.3 Dietary counseling and surveillance | CPT/HCPCS: 96127; 99212 ==

== ENCOUNTER 2024-10-19 09:09 | Day surgery (SDC) | payer OTHER, SELFPAY ==
--- NOTE | 2024-10-18 09:11 | P.CONAN_ITS ---
Documented by User: Katiana Oswald NP 10/18/24 09:11 HPI - Anesthesia Eval Consult details Narrative: 54yo M for Upper Endoscopy and Colonoscopy PMF Active Problems Active Problems: All Active Problems Cannabinoid hyperemesis syndrome (Acute) Upper respiratory infection (Acute) Annual physical exam (Acute) Adult ADHD (Acute) Pre-op examination (Acute) Abdominal pain (Acute) Hepatic steatosis (Acute) Plantar fasciitis of right foot (Acute) Facial dermatitis (Acute) Skin tag (Acute) Generalized anxiety disorder (Acute) Impaired fasting blood sugar (Acute) Past Medical History Medical History (Updated 08/18/24 @ 15:00 by Gaye Miguel MD) Colon cancer screening LFT elevation Bruised kidney Family History Family History Mother Diabetes Skin cancer Hypertension Thyroid disease Father Diabetes Sister Skin cancer Sister Skin cancer Sister No problems noted. Brother No problems noted. Brother No problems noted. Brother No problems noted. Other Mental health disorder Substance use disorder Surgical History Surgical History S/P surgical manipulation of ankle joint Hx of shoulder surgery Social History Social History (Updated 06/02/24 @ 13:29 by Bre [facility] Housing: Apartment Alcohol intake: current Comment: 2x a week 3 beers Patient Tobacco Use Status: Never used Tobacco Tobacco use type: Cigarette Years Smoked: smoke cannabis e-Cigarette/Vaping Use: Currently Using (THC ) Second Hand Smoke Exposure: Yes Use of substances other than those prescribed or required for medical reasons: Yes Substance Use Type: Marijuana Substance Use Frequency: Daily Have you been hit, kicked, punched, or otherwise hurt by someone within the past year? 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 Current occupational exposures/hazards: No Cognitive needs: No Hearing needs: No Vision needs: Yes Meds Allergies Allergy/AdvReac Type Severity Reaction Status Date / Time Iodinated Contrast Media Allergy Severe ANAPHYLAXIS Verified 08/18/24 12:38 [IV CONTRAST] iodine AdvReac Severe Anaphylaxis Verified 08/18/24 12:38 Home Medications ?Medication ?Instructions ?Recorded ?Confirmed ?Last Taken ?Type B-complex with vitamin C 1 tab PO DAILY 02/23/24 04/19/24 Unknown History cyanocobalamin (vitamin B-12) 1,000 mcg PO DAILY 02/23/24 04/19/24 Unknown History 1,000 mcg tablet trazodone 50 mg tablet 50 mg PO BEDTIME PRN 02/23/24 04/19/24 Unknown History Assessment and Plan Assessment Anesthesia Assessment: Chart Reviewed Documented by User: Ochoa Medina MD 10/19/24 11:10 PMFSH Past Medical History Medical History (Updated 08/18/24 @ 15:00 by Gaye Miguel MD) Colon cancer screening LFT elevation Bruised kidney Family History Family History Mother Diabetes Skin cancer Hypertension Thyroid disease Father Diabetes Sister Skin cancer Sister Skin cancer Sister No problems noted. Brother No problems noted. Brother No problems noted. Brother No problems noted. Other Mental health disorder Substance use disorder Family history of problems with anesthesia: No Surgical History Surgical History S/P surgical manipulation of ankle joint Hx of shoulder surgery History of Problems with Anesthesia: No Social History Social History (Updated 06/02/24 @ 13:29 by Bre [facility] Housing: Apartment Alcohol intake: current Comment: 2x a week 3 beers Patient Tobacco Use Status: Never used Tobacco Tobacco use type: Cigarette Years Smoked: smoke cannabis e-Cigarette/Vaping Use: Currently Using (THC ) Second Hand Smoke Exposure: Yes Use of substances other than those prescribed or required for medical reasons: Yes Substance Use Type: Marijuana Substance Use Frequency: Daily Have you been hit, kicked, punched, or otherwise hurt by someone within the past year? 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 Current occupational exposures/hazards: No Cognitive needs: No Hearing needs: No Vision needs: Yes Meds Allergies Allergy/AdvReac Type Severity Reaction Status Date / Time Iodinated Contrast Media Allergy Severe ANAPHYLAXIS Verified 08/18/24 12:38 [IV CONTRAST] iodine AdvReac Severe Anaphylaxis Verified 08/18/24 12:38 Home Medications ?Medication ?Instructions ?Recorded ?Confirmed ?Last Taken ?Type B-complex with vitamin C 1 tab PO DAILY 02/23/24 04/19/24 Unknown History cyanocobalamin (vitamin B-12) 1,000 mcg PO DAILY 02/23/24 04/19/24 Unknown History 1,000 mcg tablet trazodone 50 mg tablet 50 mg PO BEDTIME PRN 02/23/24 04/19/24 Unknown History Exam Airway Mallampati Class: II TM Dist: <=3cm Neck ROM: Full Loose/Missing/Broken Teeth: Yes and Upper Heart: ok Lungs: ok Assessment and Plan Assessment Anesthesia Assessment: Anesthesia Plan Discussed Final Anesthetic Review Family History of Problems with Anesthesia: No History of Problems with Anesthesia: No NPO: Yes ASA Class: II Final Preanesthetic Review: No Changes in Pt Med Stat, Meds/Allgs Chart Reviewed, Consent Obtained/Reviewed and Anes Risks/Benef Reviewed Patient Risk: Intermediate Procedure Risk: Intermediate Anesthetic Plan Anesthetic Plan: Agree w/ Assess. and Plan and TIVA Disposition: Standard PACU
[2024-10-19 10:07] VITALS: BMI 37.1
--- NOTE | 2024-10-19 10:19 | MHC.SHP ---
Pre-Procedural Eval Section A - 24 Hr Update-Section A only Date of Service: 10/19/24 Section B - Complete if H&P > 30 days Chief Complaint: Right upper quadrant pain,fatty liver, screening Details of Present Illness: Colon cancer screening LFT elevation Bruised kidney Surgical History (Updated 02/23/24 @ 14:21 by Gaye Miguel MD) S/P surgical manipulation of ankle joint Hx of shoulder surgery Present Medications: see Short Stay Collaborative assessment Allergies: Allergies Allergy/AdvReac Type Severity Reaction Status Date / Time Iodinated Contrast Media Allergy Severe ANAPHYLAXIS Verified 08/18/24 12:38 [IV CONTRAST] iodine AdvReac Severe Anaphylaxis Verified 08/18/24 12:38 Review of Systems Review of Systems Comment: Ten point ROS negative Exam Exam Comment: Gen appear: No acute distress HEENT: no icterus Chest: No overt resp distress Abd: soft, nontender, nondistended Psych: Stable affect, answering questions appropriately Neuro: A/Ox3 noted to move all extremities spontaneously Ext: no peripheral edema Plan Diagnosis/Plan: Unchanged I have reviewed the history and physical and performed a pertinent physical examination on my patient. No changes have occurred unless specified. Time Spent With Patient Time: Total time managing care of this patient today ____ minutes.
[2024-10-19 10:22] VITALS: BP 142/78; PULSE 84; RESP 16; TEMP 36.8; O2SAT 98
[2024-10-19] MEDS: Lactated Ringers 1,000 ML 100 ML IVCONT (10:23)
--- NOTE | 2024-10-19 11:45 | P.OPN-COLO_ITS ---
Colonoscopy Operative Note Operative Note Date of Service: 10/19/24 Narrative: Procedure: Upper endoscopy and colonoscopy Indication: Abd pain Endoscopist: Larisa Collier MD Anesthesia Provider: Anesthesia type: MAC Instrument: [id number] and [id number] EGD Procedure:?? The procedure, indications, preparation and potential complications were reviewed with the patient, who indicated understanding and gave written informed consent to proceed. The endoscope was introduced through the mouth, and advanced to the 2nd part of the duodenum. The mucosa was carefully examined on slow withdrawal of the endoscope. The patient tolerated the procedure well. There were no immediate complications.? EGD Findings:? * Esophagus:? Normal esophageal mucosa was noted. The Z-line was at 30 cm displaced by hiatal hernia with the diaphragmatic pinch at 35 cm. Cold forceps biopsies were taken from middle and lower esophagus to rule out eosinophilic esophagitis. A Schatzki's ring was noted just above the GE junction. This did not appear to be obstructing but was interrupted with cold forceps biopsies anyway. * Stomach:? Normal gastric mucosa. Retroflexion was performed in the cardia that showed Hill grade II hiatal hernia. Random cold forceps biopsies were taken from the stomach. * Duodenum:? Normal duodenal mucosa. Cold forceps biopsies were taken from the duodenal bulb and 2nd portion of the duodenum to rule out celiac sprue. Colonoscopy Procedure:? The patient was then turned for the colonoscopy. A digital rectal exam was performed which was normal.? A distal attachment cap was affixed to the tip of the scope and the colonoscope was then inserted through the anus and advanced through the colon and advanced to the cecum at 75 cm and terminal ileum.? Appendiceal orifice and ileocecal valve were identified. Mucosa was carefully examined under high definition white light as the instrument was slowly withdrawn in a retrograde panoramic fashion. Retroflexion was performed in rectum. The procedure was not difficult. The quality of the prep was BBPS: 2+3+3 = adequate Withdrawal time 10 minutes Limitations: No limitations Findings: Mucosa: Normal colon and terminal ileum mucosa. Cold forceps biopsies were taken from right and left side of the colon to rule out microscopic colitis. Protruding lesions: * Medium internal hemorrhoids without stigmata of recent bleeding. Excavated lesions: * Rare diverticula noted in sigmoid colon. Impression: 1. Normal esophagus (biopsy) 2. Schatzki's ring 3. Normal stomach (biopsy) 4. Normal duodenum (biopsy) 5. Normal colon and terminal ileum mucosa (biopsy) 6. Internal hemorrhoids 7. Diverticulosis Recommendations:?? * Follow-up path results * Avoid NSAIDs * H Pylori treatment if biopsies + * Repeat colonoscopy for CRC screening in 10 years. * Since pt reports very localized pain right upper side with a distinct popping sensation consider lower rib pain syndromes in differential such as slipping rib syndrome.
[2024-10-19 11:50] VITALS: BP 121/69; PULSE 82; RESP 18; TEMP 36.5; O2SAT 98
[2024-10-19 12:05] VITALS: BP 119/77; PULSE 72; RESP 18; TEMP 36.1; O2SAT 97
== END 2024-10-19 12:25 | disposition home or self-care (01) ==
PROVIDERS: PCP Internal Medicine; Visit Provider Internal Medicine
PROC: (CPT 45380; principal; 2024-10-19 11:20)
DX: Z12.11 Encounter for screening for malignant neoplasm of colon (principal); K64.8 Other hemorrhoids; K57.30 Diverticulosis of large intestine without perforation or abscess without bleeding; R10.11 Right upper quadrant pain; K22.2 Esophageal obstruction; K20.80 Other esophagitis without bleeding; K44.9 Diaphragmatic hernia without obstruction or gangrene; K76.0 Fatty (change of) liver, not elsewhere classified; E66.9 Obesity, unspecified; Z68.33 Body mass index [BMI] 33.0-33.9, adult; Z98.890 Other specified postprocedural states; Z91.041 Radiographic dye allergy status; F17.290 Nicotine dependence, other tobacco product, uncomplicated; Z79.899 Other long term (current) drug therapy
CPT/HCPCS: 45380; 43239; 88305; 88313; 88342; J2003; J2704

== ENCOUNTER → 2024-10-19 09:09 | Outpatient (BNV) | payer OTHER, SELFPAY | PROVIDERS: PCP Internal Medicine; Visit Provider Internal Medicine | DX: K22.2 Esophageal obstruction (principal); K57.30 Diverticulosis of large intestine without perforation or abscess without bleeding; K64.8 Other hemorrhoids | CPT/HCPCS: 43239; 45380 ==

== ENCOUNTER → 2024-11-19 14:37 | Outpatient (BNVA) | payer OTHER, SELFPAY | PROVIDERS: PCP Internal Medicine | DX: F41.1 Generalized anxiety disorder (principal); R73.01 Impaired fasting glucose; K76.0 Fatty (change of) liver, not elsewhere classified; F90.9 Attention-deficit hyperactivity disorder, unspecified type; M25.511 Pain in right shoulder; F10.90 Alcohol use, unspecified, uncomplicated; D17.9 Benign lipomatous neoplasm, unspecified; L85.3 Xerosis cutis; R10.11 Right upper quadrant pain; E66.9 Obesity, unspecified | CPT/HCPCS: 96127; 99212; 99396 ==

== ENCOUNTER 2024-11-23 11:23 | Outpatient (REF) | payer OTHER, SELFPAY ==
[2024-11-23 11:34] LABS: MANUAL DIFF FLAG NO
[2024-11-23 11:51] LABS: Basophils Absolute Auto 0.1 X10*3/uL (0.0-0.2); Basophils Percent Auto 0.9 % (0-2); Eosinophils Absolute Auto 0.2 X10*3/uL (0.0-0.4); Eosinophils Percent Auto 2.8 % (0-4); Hematocrit 42.6 % (42.0-52.0); Hemoglobin 14.4 g/dl (14.0-18.0); Imm Gran Abs Auto 0.01 X10*3/uL (0.00-0.03); Imm Gran Pct Auto 0.2 % (0.0-0.4); Lymphocytes Absolute Auto 1.7 X10*3/uL (1.2-4.9); Mean Corpuscular HGB Conc 33.8 g/dl (31.0-36.0); Mean Corpuscular Volume 97.5 fL (80.0-98.0); Mean Platelet Volume 9.4 fL (9.4-12.4); Monocytes Absolute Auto 0.4 X10*3/uL (0.1-1.2); Monocytes Percent Auto 7.5 % (2-11); Neutrophils Absolute Auto 3.1 x10*3/uL (2.0-8.3); Neutrophils Percent Auto 57.6 % (45-73); Platelet Count 208 X10*3/uL (160-400); Red Blood Count 4.37 X10*6/uL (4.60-5.80); White Blood Count 5.3 X10*3/uL (4.8-10.8)
[2024-11-23 12:40] LABS: Alanine Aminotransferase 18 U/L (0-40); Albumin Level 4.1 g/dL (3.5-5.0); Alkaline Phosphatase 53 U/L (39-117); Anion Gap 8 (12-20); Aspartate Amino Transferase 23 U/L (5-37); Bilirubin Total 1.3 mg/dL (0.0-1.0); Blood Urea Nitrogen 16 mg/dL (9-16); Calcium 9.6 mg/dL (8.4-10.2); Carbon Dioxide 30 mmol/L (22-29); Chloride 108 mmol/L (96-108); Cholesterol 185 mg/dL (<200); Estimated Glomerular Filt Rate > 60; Glucose Random 94 mg/dL (60-115); HDL Cholesterol 65 mg/dL (>40); LDL Cholesterol Calculated 102 mg/dL (<100); Potassium 4.5 mmol/L (3.3-5.1); Sodium 141 mmol/L (135-145); Total Protein 7.6 g/dL (6.5-8.0); Triglycerides 93 mg/dL (<150)
[2024-11-23 12:56] LABS: Vitamin D 25-OH Total 28.7 ng/mL (>30)
[2024-11-23 13:12] LABS: Folate 15.7 ng/mL (> or = 4.0); Vitamin B12 364 pg/mL (200-900)
[2024-11-29 16:08] LABS: PSA, Ultra Sensitive 0.87 ng/mL
== END 2024-11-23 11:24 | disposition home or self-care (01) ==
LOC: HO.LAB 11:23
PROVIDERS: PCP Internal Medicine
DX: Z00.00 Encounter for general adult medical examination without abnormal findings (principal); Z12.5 Encounter for screening for malignant neoplasm of prostate
CPT/HCPCS: 36415; 80053; 80061; 82306; 82607; 82746; 84153; 84443; 85025

== ENCOUNTER 2024-12-13 14:59 | Outpatient (AMB) | payer OTHER, SELFPAY ==
--- NOTE | 2024-12-13 15:38 | MHC.AM.SUB ---
Intake Visit Reasons: Intake Allergies Iodinated Contrast Media [IV CONTRAST] Allergy (Severe, Verified 11/19/24 14:59) ANAPHYLAXIS iodine Adverse Reaction (Severe, Verified 11/19/24 14:59) Anaphylaxis HPI HPI Intake: Details: Patient presents for evaluation and treatment of alcohol use Referred by PCP Would like to manage use of substances as coping mechanisms Would like to set goals to reduce use of substances Currently drinking 2-3x/week 7 beers each occasion Spending more money than he would like mental clarity with drinking Before pandemic was drinking more heavily and got a DUI has cut down since then (unclear when this was, possibly 10 years ago) started using edibles as a means to decrease ETOH In February 2024 stopped all substances for 2 months due to sudden onset of abdominal pain Has since resumed alcohol use since then No edibles, but has continued vaping cannabis Will be going to see GI soon recently started omeprazole and dose now 40mg Weekly therapy at [facility] Haven Weiss Uses alcohol and vaping as a way to address anxiety, in particular social anxiety Review of Systems Const Reports as per HPI GI Reports dyspepsia, Reports nausea and Reports vomiting (after drinking) Psych Reports anxiety and Reports depression Physical Exam Const General: cooperative, healthy appearing and no acute distress Orientation/consciousness: patient oriented x3 Neuro General: patient oriented x3 Psych Appearance: well kempt Speech and movement: Clear speech present Affect: normal affect Attitude: cooperative Thought process: Normal thought process present Thought content: Normal thought content present Insight: Fair insight present (Psych) [facility] Medical History Colon cancer screening LFT elevation Bruised kidney Surgical History S/P surgical manipulation of ankle joint Hx of shoulder surgery Family History Mother Diabetes Skin cancer Hypertension Thyroid disease Father Diabetes Sister Skin cancer Sister Skin cancer Sister No problems noted. Brother No problems noted. Brother No problems noted. Brother No problems noted. Other Mental health disorder Substance use disorder Social History Housing: Apartment Alcohol intake: current Comment: 2x a week 3 beers Patient Tobacco Use Status: Never used Tobacco Tobacco use type: Cigarette Years Smoked: smoke cannabis e-Cigarette/Vaping Use: Currently Using (THC ) Second Hand Smoke Exposure: Yes Substance Use Type: Marijuana service: No Current occupational status: employed Current occupation: [employer] Current occupational exposures/hazards: No Cognitive needs: No Hearing needs: No Vision needs: Yes Assessment & Plan Assessment & Plan (1) Alcohol use disorder: Code(s): F10.90 - Alcohol use, unspecified, uncomplicated Category: Medical Plan: discussed options for addressing current alcohol use, including safer drinking strategies, medications to assit with reducing use and IOP patient unsure what he wants to do at this time, if anything. will call to schedule follow up if he decides he wants to move forward with any of the above or if he has questions
== END 2024-12-13 16:26 | disposition home or self-care (01) ==
PROVIDERS: PCP Internal Medicine; Visit Provider Nurse Practitioner Psychiatric/Mental Health
DX: F10.90 Alcohol use, unspecified, uncomplicated (principal)
CPT/HCPCS: 99204

== ENCOUNTER → 2024-12-13 14:59 | Outpatient (BNVA) | payer OTHER, SELFPAY | PROVIDERS: PCP Internal Medicine; Visit Provider Nurse Practitioner Psychiatric/Mental Health | DX: F10.90 Alcohol use, unspecified, uncomplicated (principal) | CPT/HCPCS: 99202 ==

== ENCOUNTER 2024-12-24 12:54 | Outpatient (RCR) | payer OTHER, SELFPAY ==
--- NOTE | 2024-12-24 13:55 | MHC.PT.EP ---
[facility] [place] Office [place] Office [place] Office [address] [phone] F: [phone] F: [phone] F: [phone] F: [phone] Physical Therapy Plan of Care Date of Evaluation: 12/24/24 Date of Surgery: Diagnosis: R shoulder pain Assessment: 54 y/o R-hand dominant male referred to PT with R shoulder pain. S/s consistent with impingement and tednonipathy resulting in pain and difficulty with reaching overhead, reaching behind back, swimming, and lifting. Examination shows decreased R shoulder ROM, decreased R shoulder strength, pain and impaired postural awareness. Recommend PT 2x/week for 6 weeks however pt has high co-pay and would like to trial self management. Distributed extensive HEP and will keep chart open in case pt would like to return for updated HEP Frequency and Duration: The patient will be seen 2x/week for 6 weeks Short Term Goals: 3 weeks I with HEP [facility] Goals: 6 weeks I with HEP and self management of sx Pt will be able to reach into overhead cabinets with pain < 3/10 Pt will be able to carry grocery bags with pain < 3/10 Treatment Plan: Modalities to reduce pain, spasms and effusion. Manual therapy to restore motion and function. Therapeutic exercise to improve strength and flexibility. Neuromuscular re-education for posture and balance. Therapeutic activities to return to functional activities of daily living. Electronically signed by: Myesha Robles PT Please sign and return to therapist. Thank you for your referral.
--- NOTE | 2025-01-27 08:10 | MHC.PT.DC ---
[facility] [place] Office [place] Office [place] Office [address] Rosario Nolan [address] [phone] F: [phone] F: [phone] F: [phone] F: [phone] Physical Therapy Discharge Report Diagnosis: R shoulder pain Date of Surgery: Date of Evaluation: 12/24/24 Date of Discharge: 01/27/25 Treatments to Date: 1 Cancellations to Date: 0 No Shows to Date: 0 Discharge Status: Independent with HEP Patient Elected to Stop Discharge Summary: Pt only attended evaluation d/t wanted to trial self management secondary to high co-pay. Electronically signed by: Myesha Robles PT Please sign and return to therapist. Thank you for your referral.
== END 2025-01-27 08:10 | disposition home or self-care (01) ==
LOC: HO.PT 12:54
PROVIDERS: PCP Internal Medicine
DX: M25.511 Pain in right shoulder (principal)
CPT/HCPCS: 97110; 97161

== ENCOUNTER 2025-01-21 14:16 | Outpatient (AMB) | payer OTHER, SELFPAY ==
--- NOTE | 2025-01-21 14:29 | MHC.PC.OV ---
Vital Signs 01/21/25 14:30 Height 5 ft 8 in Weight 254 lb 6 oz BMI 38.7 BP 120/80 Blood Pressure Location Lt brachial Position Sitting Pulse 73 Pulse Source Pulse Oximeter Temp 97.1 F Temp Source Temporal Artery Scan Pulse Oximetry (%) 98 Oxygen Delivery Method Room Air Intake Visit Reasons: f/u liver and GERD Intake Note: Patient is here to follow up on Liver and GERD. Flight Radio Officer Required: No Housekeeper Caregiver: Not Required per policy Accompanied by: Self / Same As Patient Allergies Iodinated Contrast Media [IV CONTRAST] Allergy (Severe, Verified 01/21/25 14:47) ANAPHYLAXIS iodine Adverse Reaction (Severe, Verified 01/21/25 14:47) Anaphylaxis Medication List - Last Reconciled 01/21/25 by Marina Saucedo PA-C B-complex with vitamin C 1 tab PO DAILY bupropion HCl XL 150 mg PO QAM cholecalciferol (vitamin D3) 25 mcg PO DAILY cyanocobalamin (vitamin B-12) 1,000 mcg PO DAILY omeprazole 40 mg PO BID trazodone 50 mg PO BEDTIME PRN Tobacco use date assessed: 01/21/25 Dental Screening Dental Screen Date: 11/19/24 HPI f/u liver and GERD HPI Details 54-year-old male with past medical history of impaired glucose tolerance, generalized anxiety disorder, fatty liver disease last seen 11/2024 coming in for follow up.? In review of the notes, [facility] for alcohol use disorder. Presenting with chronic abdominal pain. This pain began 11 months prior and was managed initially with omeprazole, showing partial improvement before returning to baseline. It notably worsens after meals and is aggravated by vaping. The patient experiences sporadic changes in bowel habits alongside occasional bright red blood in stools, attributed to hemorrhoids. Diagnostic procedures, including a colonoscopy and endoscopy, revealed a hiatal hernia and a Schatzki ring, without evidence of eosinophilic esophagitis. Imaging further identified an umbilical hernia. Recent scans have been unremarkable regarding other visceral organs. [facility] Medical History Colon cancer screening LFT elevation Bruised kidney Surgical History History of endoscopy History of colonoscopy S/P surgical manipulation of ankle joint Hx of shoulder surgery Family History Mother Diabetes Skin cancer Hypertension Thyroid disease Father Diabetes Sister Skin cancer Sister Skin cancer Sister No problems noted. Brother No problems noted. Brother No problems noted. Brother No problems noted. 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[employer] Current occupational exposures/hazards: No Cognitive needs: No Hearing needs: No Vision needs: Yes Questionnaire Thrive Questionnaire Date Thrive assessed: 11/19/24 I am a: Patient What is your living situation today?: I have a steady place to live Within the past 12 months, did the food you bought not last and you didn't have the money to get more?: I choose not to answer this question Within the past 12 months, did you worry whether your food would run out before you got money to buy more?: I choose not to answer this question Do you have trouble paying for medicines?: I choose not to answer this question Do you have trouble getting transportation to medical appointments?: No Do you have trouble paying your heating and electricity bill?: No Do you have trouble taking care of your child, family member or friend?: No Do you have trouble with day-to-day activities such as bathing, preparing meals, shopping, managing finances, etc.?: Yes Are you currently unemployed and looking for a job?: No Are you interested in more education?: No Please select the resources that you would like help with: None Currently or been in a relationship where the following occur: I choose not to answer THRIVE Score: 0 NANCY-7 AMB Questionnaire NANCY-7 Date NANCY - 7 assessed: 11/19/24 Source: Developed by Drs. Alex Vo, Dena Davis, Man Ballesteros and colleagues, with an educational cheryl from [employer]. Review of Systems Const Denies body aches, Denies chills, Denies fever(s), Denies headache(s) and Denies poor appetite Eyes Reports no additional complaints ENT Denies dizziness and Denies headache(s) Card Denies chest pain, Denies syncope, Denies edema, Denies irregular heart rhythm, Denies lightheadedness and Denies dyspnea Resp Denies cough and Denies dyspnea GI Denies abdominal pain, Denies constipation, Denies diarrhea, Denies nausea and Denies vomiting Reports no additional complaints Musc Reports no additional complaints and Denies abnormal gait Skin/Breast Reports system reviewed and no additional complaints, except as documented Neuro Denies abnormal gait, Denies dizziness, Denies syncope and Denies headache(s) Psych Reports no additional complaints Physical exam (Primary Care) Vital Signs: Last Vital Signs Temp 97.1 F 01/21/25 14:30 Pulse 73 01/21/25 14:30 BP 120/80 01/21/25 14:30 Pulse Ox 98 01/21/25 14:30 Oxygen Delivery Method Room Air 01/21/25 14:30 BMI result Body Mass Index 38.7 Tobacco/Smoking Status: Tobacco use Status Tobacco use date assessed 01/21/25 01/21/25 14:34 Patient Tobacco Use Status Never used Tobacco 01/21/25 14:34 Tobacco use type Cigarette 01/21/25 14:34 e-Cigarette/Vaping Use Currently Using (THC ) 01/21/25 14:34 Thrive Assessment: Date of Thrive Assessment Date Thrive assessed 11/19/24 01/21/25 14:34 Currently or been in a relationship where the following occur: I choose not to answer Const General: cooperative, healthy appearing, comfortable and no acute distress Orientation/consciousness: patient oriented x3 HENMT Head: Yes normocephalic Ears: hearing grossly normal bilaterally General nose exam: Normal external nose present Eyes General: appearance normal, both eyes and all related structures Conjunctivae: conjunctivae normal Neck Neck: Yes full ROM and Yes no lymphadenopathy Resp Effort & Inspection: normal respiratory effort Auscultation: clear to auscultation bilaterally, no crackles, no rales, no rhonchi and no wheezes Cardio Rate: regular rate Rhythm: regular rhythm GI Other: Tenderness to right lower quadrant Skin General skin exam: no rashes or lesions noted Neuro General: patient oriented x3 Gait exam (Neuro): Normal gait present Extrem General: Yes normal to inspection, Yes full ROM and No edema Psych Affect: normal affect Attitude: cooperative Insight: Good insight present (Psych) Judgement: Good judgement present (Psych) Coding Level of Care Code Est Pt Level 3 (46535) Diagnoses Obesity (BMI 35.0-39.9 without comorbidity) E66.9 Alcohol use disorder F10.90 Impaired fasting blood sugar R73.01 Hepatic steatosis K76.0 Right upper quadrant abdominal pain R10.11 Abdominal location: right upper quadrant Assessment & Plan Assessment & Plan (1) Obesity (BMI 35.0-39.9 without comorbidity): Code(s): E66.9 - Obesity, unspecified Category: Medical Plan: Healthy diet and regular exercise is encouraged. (2) Alcohol use disorder: Code(s): F10.90 - Alcohol use, unspecified, uncomplicated Category: Medical Plan: Patient is currently following with [facility] at this time and finds this beneficial. (3) Impaired fasting blood sugar: Code(s): R73.01 - Impaired fasting glucose Category: Medical Plan: Decrease the amount of carbohydrates such as pasta, bread, rice, and potatoes and limit the amount of sweets. Although fruits are generally healthy they should be eaten in moderation as they are still high in sugar. (4) Hepatic steatosis: Comment: Baseline Laboratory Tests 02/25/24 WBC 5.1 Hgb 14.2 Hct 40.7 L MCV 97.8 MCH 34.1 H Plt Count 239 Estimated GFR > 60 Total Bilirubin 0.6 AST 45 H ALT 85 H Alkaline Phosphatase 57 Free T4 1.22 03/25/24 09:01 Hep Bs Antigen Negative Hep Bs Antibody NONREACTIVE Hep B Core Total Ab Nonreactive Hepatitis C Ab (EIA) Nonreactive CURRENT LABS US ABD 03/23/24 FINDINGS: PANCREAS: Limited visualization of pancreatic tail and head. Imaged portion of pancreatic body is unremarkable. ABDOMINAL AORTA: Limited visualization particularly of the mid and proximal abdominal aorta. Imaged portions of the ahm-de-pavmtn abdominal aorta are unremarkable. INFERIOR VENA CAVA: Visualized portions are normal. LIVER: Increased hepatic parenchymal heterogeneity and echogenicity could be associated with hepatocellular disease/hepatic steatosis and substantially limits visualization. Correlation with liver function tests and clinical exam recommended to determine further management. Severely limited visualization, with particularly poor visualization of the left hepatic lobe. GALLBLADDER: No gallstones. No gallbladder wall thickening. COMMON BILE DUCT: Normal in caliber measuring 0.20 cm in diameter. RIGHT KIDNEY: No hydronephrosis. No renal calculi. Limited visualization. The kidney measures 10.3 cm in maximum dimension. LEFT KIDNEY: No hydronephrosis. No renal calculi. Limited visualization. The kidney measures 12.9 cm in maximum dimension. SPLEEN: Normal. The spleen measures 9.9 cm in maximum dimension. FREE FLUID: None. US/US abdomen complete IMPRESSION: Increased hepatic parenchymal heterogeneity and echogenicity could be associated with hepatocellular disease/hepatic steatosis and substantially limits visualization. Correlation with liver function tests and clinical exam recommended to determine further management. Code(s): K76.0 - Fatty (change of) liver, not elsewhere classified Category: Medical Plan: Healthy diet and regular exercise is encouraged. (5) Abdominal pain: Code(s): R10.9 - Unspecified abdominal pain Category: Medical Qualifiers: Abdominal location: right upper quadrant Qualified Code(s): R10.11 - Right upper quadrant pain Plan: I will continue with the current omeprazole dosing of 40mg twice daily to manage GERD. The patient will adhere to a low FODMAP diet to mitigate irritable bowel syndrome symptoms. Continued use of TUMS with appropriate hydration is approved to prevent complications. NSAIDs are advised against to avert gastric irritation. A referral to the GI specialist has been made for further evaluation. Identification of aggravation causes is crucial, and alternatives or further diagnostics will be considered as needed. Discussed low FODMAP diet and incorporation of fiber supplement. Plan to follow up in 3 months and advised to follow up with GI. Message was sent to GI office to obtain appointment. Plan This note was constructed using voice recognition software. While every effort has been made to ensure accuracy and fire investigation lieutenant, still areas may have been included sometimes these areas may affect the content or meeting of the given symptoms. Total time spent caring for the patient today was 20 minutes. This includes time spent before the visit reviewing the chart, time spent during the visit, and time spent after the visit and documentation. Patient was informed and verbally consented to the use of an ambient scribe for clinic note documentation during this visit. Medications: Refilled bupropion HCl XL 150 mg PO QAM 90 tabs 1RF omeprazole 40 mg PO BID 60 caps 3RF K21.9 - Gastro-esophageal reflux disease without esophagitis
[2025-01-21 14:30] VITALS: BP 120/80; PULSE 73; TEMP 36.2; O2SAT 98; BMI 38.7
== END 2025-01-21 15:15 | disposition home or self-care (01) ==
LOC: HO.HMCH 14:17
PROVIDERS: PCP Internal Medicine
DX: R73.01 Impaired fasting glucose (principal); Z68.38 Body mass index [BMI] 38.0-38.9, adult; E66.9 Obesity, unspecified; F10.90 Alcohol use, unspecified, uncomplicated; K76.0 Fatty (change of) liver, not elsewhere classified; R10.11 Right upper quadrant pain

== ENCOUNTER → 2025-01-21 14:16 | Outpatient (BNVA) | payer OTHER, SELFPAY | PROVIDERS: PCP Internal Medicine | DX: E66.9 Obesity, unspecified (principal); F10.90 Alcohol use, unspecified, uncomplicated; R73.01 Impaired fasting glucose; K76.0 Fatty (change of) liver, not elsewhere classified; R10.11 Right upper quadrant pain | CPT/HCPCS: 99212 ==

== ENCOUNTER 2025-03-23 14:40 | Outpatient (AMB) | payer OTHER, SELFPAY ==
--- NOTE | 2025-03-23 14:48 | A.OFFVIS_ITS ---
Vital Signs 03/23/25 14:57 Height 5 ft 8 in Weight 259 lb BMI 39.4 BP 140/90 H Blood Pressure Location Rt brachial Position Sitting Pulse 72 Pulse Source Pulse Oximeter Pulse Oximetry (%) 97 Oxygen Delivery Method Room Air Intake Visit Reasons: abd pain Intake Note: Established patient for mgmt of GERD + chronic abd pain. CC; C/O persistence of chronic RLQ pain. Pt also reporting nausea almost daily w/o vomiting. Pt denies any actual heartburn at this time but still experiences frequent pain. No additional sx or concerns at this time. Supply Assistant Required: No Accompanied by: Self / Same As Patient Allergies Iodinated Contrast Media [IV CONTRAST] Allergy (Severe, Verified 03/23/25 14:51) ANAPHYLAXIS iodine Adverse Reaction (Severe, Verified 03/23/25 14:51) Anaphylaxis HPI HPI abd pain: Details: Assessment & Plan (1) Hepatic steatosis: Comment: Baseline Laboratory Tests 02/25/24 WBC 5.1 Hgb 14.2 Hct 40.7 L MCV 97.8 MCH 34.1 H Plt Count 239 Estimated GFR > 60 Total Bilirubin 0.6 AST 45 H ALT 85 H Alkaline Phosphatase 57 Free T4 1.22 03/25/24 09:01 Hep Bs Antigen Negative Hep Bs Antibody NONREACTIVE Hep B Core Total Ab Nonreactive Hepatitis C Ab (EIA) Nonreactive CURRENT LABS US ABD 03/23/24 FINDINGS: PANCREAS: Limited visualization of pancreatic tail and head. Imaged portion of pancreatic body is unremarkable. ABDOMINAL AORTA: Limited visualization particularly of the mid and proximal abdominal aorta. Imaged portions of the [id number] abdominal aorta are unremarkable. INFERIOR VENA CAVA: Visualized portions are normal. LIVER: Increased hepatic parenchymal heterogeneity and echogenicity could be associated with hepatocellular disease/hepatic steatosis and substantially limits visualization. Correlation with liver function tests and clinical exam recommended to determine further management. Severely limited visualization, with particularly poor visualization of the left hepatic lobe. GALLBLADDER: No gallstones. No gallbladder wall thickening. COMMON BILE DUCT: Normal in caliber measuring 0.20 cm in diameter. RIGHT KIDNEY: No hydronephrosis. No renal calculi. Limited visualization. The kidney measures 10.3 cm in maximum dimension. LEFT KIDNEY: No hydronephrosis. No renal calculi. Limited visualization. The kidney measures 12.9 cm in maximum dimension. SPLEEN: Normal. The spleen measures 9.9 cm in maximum dimension. FREE FLUID: None. US/US abdomen complete IMPRESSION: Increased hepatic parenchymal heterogeneity and echogenicity could be associated with hepatocellular disease/hepatic steatosis and substantially limits visualization. Correlation with liver function tests and clinical exam recommended to determine further management. Code(s): K76.0 - Fatty (change of) liver, not elsewhere classified Category: Medical (2) Abdominal pain: Code(s): R10.9 - Unspecified abdominal pain Category: Medical Qualifiers: Abdominal location: right upper quadrant Qualified Code(s): R10.11 - Right upper quadrant pain (3) Pre-op examination: Code(s): Z01.818 - Encounter for other preprocedural examination Category: Medical Plan He had the sudden onset 3 months ago of pain in the RUQ, better with laying, he has had a lot of gas recently and he is unsure if pain in r/t eating as his largest meal is qhs as the pain is always worse at night. The pain is described as pinching like someone took clothespins and put them under my ribs, occasionally has right sided low back pain that may be associated. When the pain was severe was 10/10 but most of the time is a nagging discomfort. When it was at its worst he described it as like a pepsi can in my side under my ribs and N/V with this. Prior to the onset of this pain he was drinking regularly, a terrell of craft beer or ? 6% ABV twice a week. He also started marijuana edibles for anxiety. He was close to 300 lbs prior to the pandemic, but lost close to 80lbs after starting cannabis edibles. But he is concerned that ongoing nausea has caused 20 lbs of his most recent wt loss. He has suspicions re: cannabanoid hyperemesis as he stopped it and felt somewhat better and then did some SL cannabis and had immediate pain and nausea. I did explain to him that the higher THC content is what sometimes will drive cannabinoid hyperemesis syndrome particularly with the very high content and high absorb ability of some of the marijuana that is available in this day and age. Still we should probably rule out any other more concerning causes, ultrasound shows he does not have any gallstones but that does not rule out biliary dyskinesia. He was concerned that his liver was causing pain, but the liver is not a painful organ. His father of a gallbladder problem, but most of his relatives were [place] They mostly of accidents drug and alcohol related problems. I spent time educating him about fatty liver the genetic component to this and that usually it is controlled via slow steady weight loss, avoidance of alcohol, and controlling blood sugar should he become diabetic. However before we call it fatty liver we want to rule out any other reversible causes so I will be doing some additional testing to rule out autoimmune diseases etc.. He has noted pale stools and gassy, but he is eating more oatmeal and a lot of nuts at night, very regular, no diarrhea. He has stopped drinking but still vapes cannabis at a lower dose. So far this lower dose has not return him to a severe level of pain or nausea. He is also due for colonoscopy screening. This will be his first colonoscopy. He is fairly naive to anesthesia and sedation. He denies any cardiac or respiratory problems. No ID problems. No known FHX of CRC or polyps. Orders: Orders Alpha Fetoprotein Today K76.0 - Fatty (change of) liver, not elsewhere classified, R10.11 - Right upper quadrant pain RAYMOND Reflex Titer and Pattern Today K76.0 - Fatty (change of) liver, not elsewhere classified, R10.11 - Right upper quadrant pain Ferritin Today K76.0 - Fatty (change of) liver, not elsewhere classified, R10.11 - Right upper quadrant pain Gamma Glutamyl Transpeptidase Today K76.0 - Fatty (change of) liver, not elsewhere classified, R10.11 - Right upper quadrant pain HIV Ab/Ag Today K76.0 - Fatty (change of) liver, not elsewhere classified, R10.11 - Right upper quadrant pain Transglutaminase IgA Today K76.0 - Fatty (change of) liver, not elsewhere classified, R10.11 - Right upper quadrant pain Smooth Muscle Antibody Today K76.0 - Fatty (change of) liver, not elsewhere classified, R10.11 - Right upper quadrant pain Mitochondrial Antibody Today K76.0 - Fatty (change of) liver, not elsewhere classified, R10.11 - Right upper quadrant pain Liver Panel Today K76.0 - Fatty (change of) liver, not elsewhere classified EGD/[place] Combo - GI Use Only Today R10.11 - Right upper quadrant pain, Z01.818 - Encounter for other preprocedural examination Transglutaminase Ab IgG Today K76.0 - Fatty (change of) liver, not elsewhere classified, R10.11 - Right upper quadrant pain H Pylori Breath Test Today K76.0 - Fatty (change of) liver, not e lsewhere classified, R10.11 - Right upper quadrant pain Medications: New sodium,potassium,mag sulfates 17.5-3.13-1.6 gram (Suprep Bowel Prep Kit) 480 mL orally; FOR COLONOSCOPY PREP 354 mL 0RF LABS: Laboratory Tests 06/02/24 07/10/24 11/23/24 15:10 14:30 11:33 Total Bilirubin 0.4 1.3 H AST 23 ALT 18 Alkaline Phosphatase 53 RAYMOND Screen POSITIVE A RAYMOND Titer 1:160 H RAYMOND Pattern A Anti-Mitochondrial Ab NEGATIVE Anti-Smooth Muscle Ab <20 Tiss Transglutamin IgG <1.0 Tiss Transglutamin IgA <1.0 HIV 1&2 Ab/P24 Ag 4thGn Nonreactive H PYLORI BREATH TEST WAS NOT OBTAINED EGD/COLONOSCOPY 10/19/24 EGD Findings:? * Esophagus:? Normal esophageal mucosa was noted. The Z-line was at 30 cm displaced by hiatal hernia with the diaphragmatic pinch at 35 cm. Cold forceps biopsies were taken from middle and lower esophagus to rule out eosinophilic esophagitis. A Schatzki's ring was noted just above the GE junction. This did not appear to be obstructing but was interrupted with cold forceps biopsies anyway. * Stomach:? Normal gastric mucosa. Retroflexion was performed in the cardia that showed Hill grade II hiatal hernia. Random cold forceps biopsies were taken from the stomach. * Duodenum:? Normal duodenal mucosa. Cold forceps biopsies were taken from the duodenal bulb and 2nd portion of the duodenum to rule out celiac sprue. Findings: Mucosa: Normal colon and terminal ileum mucosa. Cold forceps biopsies were taken from right and left side of the colon to rule out microscopic colitis. Protruding lesions: * Medium internal hemorrhoids without stigmata of recent bleeding.Excavated lesions: * Rare diverticula noted in sigmoid colon. Impression: 1. Normal esophagus (biopsy) 2. Schatzki's ring 3. Normal stomach (biopsy) 4. Normal duodenum (biopsy) 5. Normal colon and terminal ileum mucosa (biopsy) 6. Internal hemorrhoids 7. Diverticulosis Recommendations:?? * Follow-up path results * Avoid NSAIDs * H Pylori treatment if biopsies + * Repeat colonoscopy for CRC screening in 10 years. * Since pt reports very localized pain right upper side with a distinct popping sensation consider lower rib pain syndromes in differential such as slipping rib syndrome. BIOPSY Received: 10/19/24 Diagnosis A. Duodenum, biopsy: Duodenal mucosa within normal limits. B. Stomach, random, biopsy: Antral-type and oxyntic mucosa with mild chronic inactive inflammation; no Helicobacter organisms seen. C. Esophagus, lower, biopsy: Active esophagitis (maximum eosinophil count 7 per high powered field). D. Esophagus, middle, biopsy: Squamous epithelium within normal limits; no inflammation seen. E. Colon, right, biopsy: Colonic mucosa within normal limits. F. Colon, left, biopsy: Colonic mucosa within normal limits. TODAY'S VISIT I HAVE NOT SEEN THE PATIENT SINCE October/2023. HE IS AGREEABLE TO A 10 YEAR colonoscopy recall. His pain continues. It made difference with following a FODMAP diet strictly for a month, it also made no difference if he then split urged and over indulged in things like fatty foods and gas producing problems. He also had no benefit from IBgard, fiber, Pepto-Bismol, omeprazole and famotidine, Tums, Gaviscon, and probiotics. So this does not seem to be a GI problem, although I think we should get a HIDA scan just to be completely thorough. Because it does seem to be better when he lays down and he has a feeling that it is ?more mechanical? I think we should get an x-ray of his thoracic spine to get him started to rule out something like slipping rib syndrome (although I can not reproduce the pain with aggressive musculoskeletal exam/manipulation of the ribcage) and or radicular spinal pathology. Of course I would not be able to diagnose this for him but we can at least try to get him in the right direction. It is also possible that something else is going on like a muscular problem or even a tear of the abdominal fascia. I would not know how to diagnose this and there may not be any clear treatment except time and potentially perhaps weight loss. However he really just wants reassurance that there is no severe pathology at play which is reasonable. Return office visit after HIDA scan, he will call us once he has a date. [facility] Medical History (Updated 03/23/25 @ 16:00 by RIVER Alfred) Pre-op examination Upper respiratory infection Annual physical exam Colon cancer screening LFT elevation Bruised kidney Surgical History History of endoscopy History of colonoscopy S/P surgical manipulation of ankle joint Hx of shoulder surgery Family History Mother Diabetes Skin cancer Hypertension Thyroid disease Father Diabetes Sister Skin cancer Sister Skin cancer Sister No problems noted. Brother No problems noted. Brother No problems noted. Brother No problems noted. Other Mental health disorder Substance use disorder Social History Housing: Apartment Alcohol intake: current Comment: 2x a week 3 beers Patient Tobacco Use Status: Never used Tobacco Tobacco use type: Cigarette Years Smoked: smoke cannabis e-Cigarette/Vaping Use: Currently Using (THC ) Second Hand Smoke Exposure: Yes Substance Use Type: Marijuana service: No Current occupational status: employed Current occupation: [employer] Current occupational exposures/hazards: No Cognitive needs: No Hearing needs: No Vision needs: Yes Review of Systems Const Denies fatigue, Denies fever(s), Denies night sweats, Denies poor appetite and Denies weight loss Eyes Details: glasses Reports requires corrective lenses ENT Reports Normal hearing present, Denies dental pain, Denies dysphagia, Denies hearing loss, Denies mouth pain, Denies odynophagia, Denies throat swelling, Denies tongue swelling and Reports other (Dentition adequate) Card Reports no additional complaints Resp Reports no additional complaints GI Details: Reports abdominal pain, Denies melena, Denies bloating, Denies hematochezia, Denies constipation, Denies GI cramping, Denies dysphagia, Denies excessive flatus, Denies early satiety, Denies heartburn, Denies diarrhea, Denies nausea, Denies odynophagia, Denies vomiting and Denies hematemesis Reports flank pain Musc Reports back pain Skin/Breast Denies pruritus, Denies lesions, Denies rash and Denies jaundice Neuro Reports Normal hearing present and Denies Abnormal speech present Endo Denies fatigue Aller/Immun Denies throat swelling and Denies tongue swelling Physical Exam Vital Signs: Last Vital Signs Pulse 72 03/23/25 14:57 BP 140/90 H 03/23/25 14:57 Pulse Ox 97 03/23/25 14:57 Oxygen Delivery Method Room Air 03/23/25 14:57 BMI result Body Mass Index 39.4 Const General: cooperative, no acute distress, well developed and well groomed Nutritional Appearance: well nourished and obese Orientation/consciousness: oriented to person, oriented to place and oriented to time Limitations: No language barrier HEENT Head: Yes normocephalic and Yes atraumatic Eyes General: appearance normal, both eyes and all related structures Pupils: Equal, round and reactive pupils present Neck Neck: Yes normal visual inspection and Yes no lymphadenopathy Thyroid: Thyroid normal Chest Chest palpation & inspection: normal inspection of the chest, normal palpation of entire chest wall, no crepitus and no localized rib tenderness Resp Effort & Inspection: normal respiratory effort and able to speak in complete sentences Auscultation: clear to auscultation bilaterally Cardio Rate: regular rate Rhythm: regular rhythm Heart sounds: Normal, physiologic split S2 sound present Peripheral pulses: radial pulses present and posterior tibial pulses present GI Inspection: No distended, No Abdominal panniculus present and Yes obesity Palpation (GI): Soft to palpation, nontender, no guarding, not rigid and No hepatosplenomegaly present Percussion: Yes normal to percussion Auscultation: normal bowel sounds Rectal Exam - Male: Yes deferred General: Yes no CVA tenderness Back/Spine/Pelvis Back: no CVA tenderness Thoracic/Lumbar Spine: thoracic and lumbar spine normal to inspection, thoraco- lumbar spasm and thoracic spinal tenderness Skin General skin exam: no rashes or lesions noted, turgor normal, skin not dry, no jaundice, No spider nevi and no striae Rashes: no rashes Nails: normal Neuro General: oriented to person, oriented to place and oriented to time Cranial nerves: Yes Equal, round and reactive pupils present and Yes Normal hearing present Speech: No Abnormal speech present Extrem General: Yes normal to inspection, No clubbing, No cyanosis and No edema Psych Appearance: grossly normal and well kempt Mental Status: mental status grossly normal Speech and movement: Normal speech and movement present Affect: normal affect Attitude: cooperative Thought process: Normal thought process present and not confabulating Thought content: Normal thought content present Insight: Good insight present (Psych) Judgement: Good judgement present (Psych) Assessment & Plan Assessment & Plan (1) Abdominal pain: Code(s): R10.9 - Unspecified abdominal pain Category: Medical Qualifiers: Abdominal location: right upper quadrant Qualified Code(s): R10.11 - Right upper quadrant pain (2) Cannabinoid hyperemesis syndrome: Code(s): R11.2 - Nausea with vomiting, unspecified; F12.90 - Cannabis use, unspecified, uncomplicated Category: Medical (3) Thoracic back pain: Code(s): M54.6 - Pain in thoracic spine Category: Medical Plan I HAVE NOT SEEN THE PATIENT SINCE October/2023. HE IS AGREEABLE TO A 10 YEAR colonoscopy recall. His pain continues. It made difference with following a FODMAP diet strictly for a month, it also made no difference if he then split urged and over indulged in things like fatty foods and gas producing problems. He also had no benefit from IBgard, fiber, Pepto-Bismol, omeprazole and famotidine, Tums, Gaviscon, and probiotics. So this does not seem to be a GI problem, although I think we should get a HIDA scan just to be completely thorough. Because it does seem to be better when he lays down and he has a feeling that it is ?more mechanical? I think we should get an x-ray of his thoracic spine to get him started to rule out something like slipping rib syndrome (although I can not reproduce the pain with aggressive musculoskeletal exam/manipulation of the ribcage) and or radicular spinal pathology. Of course I would not be able to diagnose this for him but we can at least try to get him in the right direction. It is also possible that something else is going on like a muscular problem or even a tear of the abdominal fascia. I would not know how to diagnose this and there may not be any clear treatment except time and potentially perhaps weight loss. However he really just wants reassurance that there is no severe path ology at play which is reasonable. Return office visit after HIDA scan, he will call us once he has a date. Orders: Orders XR lumbar spine 2-3V 03/23/25 M54.50 - Low back pain, unspecified XR thoracic spine 2V 03/23/25 M54.6 - Pain in thoracic spine NM hepatobiliary w pharm 03/23/25 M54.6 - Pain in thoracic spine Coding Level of Care Code Est Pt Level 4 (08375) Diagnoses Right upper quadrant abdominal pain R10.11 Abdominal location: right upper quadrant Cannabinoid hyperemesis syndrome R11.2; F12.90 Thoracic back pain M54.6 Time Spent (min) 38
[2025-03-23 14:57] VITALS: BP 140/90; PULSE 72; O2SAT 97; BMI 39.4
== END 2025-03-23 15:31 | disposition home or self-care (01) ==
LOC: HO.HGI 14:41
PROVIDERS: PCP Internal Medicine; Visit Provider Nurse Practitioner
DX: R10.11 Right upper quadrant pain (principal); R11.2 Nausea with vomiting, unspecified; F12.90 Cannabis use, unspecified, uncomplicated; M54.6 Pain in thoracic spine
CPT/HCPCS: 99214

== ENCOUNTER 2025-03-23 14:40 | Outpatient (REF) | payer OTHER, SELFPAY ==
--- NOTE | ~2025-03-23 | XR_ITS ---
EXAMINATION: XR LUMBAR SPINE 2-3 VIEWS HISTORY: M54.50 - Low back pain, unspecified COMPARISON: There are no prior studies for comparison. FINDINGS: AP, lateral, and coned down views of the lumbar spine are submitted. Osseous mineralization is normal. Five nonrib-bearing lumbar vertebral bodies are identified, maintaining normal height and alignment without evidence of fracture or spondylolisthesis. Mild degenerative changes are noted with anterior spurring. The intervertebral disc spaces are maintained. 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 The visualized paraspinal soft tissues are unremarkable. XR/XR lumbar spine 2-3V IMPRESSION: Degenerative changes of the lumbar spine as described. Electronically signed by: Alex Armstrong MD 03/24/2025 07:52 AM EDT
--- NOTE | ~2025-03-23 | XR_ITS ---
EXAMINATION: XR THORACIC SPINE 2 VIEWS HISTORY: M54.6 - Pain in thoracic spine COMPARISON: There are no prior studies available for comparison. FINDINGS: AP and lateral views of the thoracic spine are submitted. Osseous mineralization is normal. The vertebral bodies maintain normal height and alignment without evidence of fracture or subluxation. There is diffuse moderate degenerative disc disease with disc space narrowing and osteophyte formation. The visualized paraspinal soft tissues are unremarkable. XR/XR thoracic spine 2V IMPRESSION: Diffuse moderate degenerative disc disease. Electronically signed by: Alex Armstrong MD 03/24/2025 07:51 AM EDT
== END 2025-03-23 14:41 | disposition home or self-care (01) ==
LOC: HO.XRAY 14:40
PROVIDERS: PCP Internal Medicine; Visit Provider Nurse Practitioner
DX: M54.50 Low back pain, unspecified (principal); M54.6 Pain in thoracic spine; K76.0 Fatty (change of) liver, not elsewhere classified; R10.11 Right upper quadrant pain; R11.2 Nausea with vomiting, unspecified; F12.90 Cannabis use, unspecified, uncomplicated
CPT/HCPCS: 72070; 72100; 99212

== ENCOUNTER → 2025-03-23 15:48 | Outpatient (BNV) | payer OTHER, SELFPAY | PROVIDERS: PCP Internal Medicine; Visit Provider Radiology Diagnostic Radiology | DX: M51.360 Other intervertebral disc degeneration, lumbar region with discogenic back pain only (principal); M51.34 Other intervertebral disc degeneration, thoracic region | CPT/HCPCS: 72070; 72100 ==

== ENCOUNTER → 2025-04-18 10:34 | Outpatient (REF) | payer OTHER, SELFPAY ==
--- NOTE | ~2025-04-18 | NM_ITS ---
EXAMINATION: NM HEPATOBILIARY WITH PHARM HISTORY: M54.6 - Pain in thoracic spine. TECHNIQUE: An hepatobiliary scan was performed following the intravenous administration of 5 mCi technetium 99m-mebrofenin. Sequential images were obtained over 1 hour. Subsequently, the patient received 2.4 microgram of IV CCK over 30 minutes and additional imaging was performed. COMPARISON: Correlation is made with an abdominal ultrasound dated 03/10/2024. FINDINGS: There is normal uptake and excretion of the radiopharmaceutical by the liver. Gallbladder activity is noted at 8 minutes. Common bile duct activity is seen at 20 minutes. Small bowel activity is noted at 32 minutes. After the administration of intravenous CCK, the estimated gallbladder ejection fraction is 35%, which is low normal (normal 35-80%). NM/NM hepatobiliary w pharm IMPRESSION: No evidence of cystic duct obstruction. Low normal gallbladder ejection fraction of 35%. Electronically signed by: Alex Armstrong MD 04/18/2025 01:16 PM EDT
== END ==
LOC: HO.NUCMED 10:34
PROVIDERS: PCP Internal Medicine; Visit Provider Nurse Practitioner
DX: M54.6 Pain in thoracic spine (principal); R10.11 Right upper quadrant pain
CPT/HCPCS: 78227; A9537

== ENCOUNTER → 2025-04-18 10:35 | Outpatient (BNV) | payer OTHER, SELFPAY | PROVIDERS: PCP Internal Medicine; Visit Provider Radiology Diagnostic Radiology | DX: M54.6 Pain in thoracic spine (principal) | CPT/HCPCS: 78227 ==

== ENCOUNTER 2025-04-29 13:55 | Outpatient (AMB) | payer OTHER, SELFPAY ==
--- OUTSIDE RECORDS SUMMARY | 2025-04-29 13:59 | XMS_ITS | Clinical Summary ---
Author Organization [facility] Address [address] [place] [id number] Phone Care Team Providers Care Beef Lugger Name Role Phone Chuck Al MD Unavailable Unknown, Unknown Primary Care Provider Unavai lable Allergies Active Allergy Reactions Criticality Noted Date Comments Iodinated Contrast Media Anaphylaxis,Other (See Comments) High Iodine dye- anaphylactic shock/air ways close Powder Scent Fragrance (Bulk) Itching 05/07/2023 Fabric softener Medications cyanocobalamin, vitamin B-12, 250 MCG tablet Take 500 mcg by mouth daily. Active multivit-minera ls/folic acid (MULTIVITAMIN GUMMIES ORAL) Take 1 gummy by mouth daily Active VITAMIN B COMPLEX ORAL Take 1 capsule by mouth daily. W/vitamin c Active ZINC ORAL Take by mouth daily as needed. Active traZODone (DESYREL) 50 MG tabletIndicatio ns:Psychophysio logical insomnia Take 1 tablet (50 mg total) by mouth nightly at bedtime. 90 tablet 3 11/25/2023 Active buPROPion (WELLBUTRIN XL) 150 MG ER 24 hr tabletIndicatio ns:Anxiety,Depr ession Take 1 tablet (150 mg total) by mouth daily. 30 tablet 2 01/23/2024 Active Active Problems Problem Noted Date Diagnosed Date Paronychia of great toe, left 05/08/2023 Assessment & Plan (05/08/2023 10:45 AM EDT): He has a paronychia- without evidence of abscess. Advised soaking with warm soapy water with epsom salts- for 15 min 3 x a day. Then gently milk along nail bed line to promote draining naturally. Cover with bacitracin and bandaid if going out - when home leave open to air- If abscess/ infection develops- call us back for oral antibiotics or possible I&D. Pt req ref to podiatry order placed Ingrowing nail, left great toe 05/08/2023 Assessment & Plan (05/08/2023 10:44 AM EDT): Advised soaking with warm soapy water with epsom salts- for 15 min 3 x a day. Then gently milk along nail bed line to promote draining naturally. Cover with bacitracin and bandaid if going out - when home leave open to air- If abscess/ infection develops- call us back for oral antibiotics or possible I&D. Pt requested ref to pod, order placed Vitamin B12 deficiency 02/07/2023 Marijuana use, continuous 07/11/2021 Medical marijuana use 07/11/2021 Obstructive sleep apnea syndrome 02/18/2019 Overview (02/07/2023): Wears CPAP 100% of time Alcohol abuse, in remission 08/20/2017 Anxiety 08/20/2017 Depression 08/20/2017 Impaired fasting blood sugar 08/20/2017 Morbid obesity due to excess calories 08/20/2017 Mixed hyperlipidemia 08/20/2017 Immunizations Immunization Administration Dates Next Due COVID-19 (Pre-08/04) Pfizer Vaccine, mRNA, PF 08/24/2021,11/29/2020,11/08/2020 Hepatitis B Adult 09/03/2023,08/05/2023 Influenza Quadrivalent MDCK Preservative Free IM 08/07/2022,08/25/2019 Influenza Quadrivalent Prese rvative Free IM 07/29/2023,07/11/2021,06/28/2020,07/16 Influenza Trivalent w/ Preservative IM 1 11/11/2015,08/22/2015,08/06/2014,10/22 Influenza trivalent preserva tive free intradermal 09/07/2013 Influenza, Unspecified Formulation 08/25/2019,,08/09/2008 Pneumococcal polysaccharide PPSV23 08/02/2021 Td (adult),2 Lf Tetanus Toxo id, PF, Adsorbed 12/03/2018 Td, unspecified formulation 03/09/2007 Tdap 08/15/2021,06/26/2010 Zoster recombinant 05/04/2023,02/15/2023 Family History Medical History Relation Comments Alcohol abuse Brother 1 Arthritis Brother 1 Alcohol abuse Brother 2 Alcohol abuse Brother 3 Diabetes Father Diabetes mellitus Father Hypertension Father Stroke Father Hyperlipidemia Mother Hypertension Mother Thyroid disease Mother Alcohol abuse Sister 2 Arthritis Sister 2 Alcohol abuse Sister 3 Relation Status Comments Brother 1 Alive Brother 2 Alive Brother 3 Alive Father Mother Alive Sister 1 murdered Sister 2 Alive Sister 3 Alive Sister 4 Alive Social History Tobacco Use Types Packs/Day Years Used Date Smoking Tobacco: Never Smokeless Tobacco: Never Tobacco Cessation:Counseling Given: Not Answered Alcohol Use Standard Drinks/Week Comments Yes 4 (1 standard drink = 0.6 oz pure alcohol) risk for heavy drinking, 2 beers 2 x week Child or Family Care Answer Date Record ed Do you have problems with on e of the following making it difficult for you to work, study, or receive health care? Family care (i.e. spouse, parents, other family) 02/07/2023 Education Answer Date Recorded Are you interested in more education? Not on leighton e 02/08/2025 Are you concerned about learning? Not on file 02/08/2025 No 02/08/2025 No 02/08/2025 Food Answer Date Recorded Within the past 6 months we worried whether our food would run out before we got money to buy more. Never True 02/07/2023 Within the past 6 months the food we bought just didn't last and we didn't have enough money to get more. Never True Residential Stability Answer Date Recor ded What is your housing situation today? I have a place to live today, but I am worried about losing it in the next 3 months 02/07/2023 How many times have you move d in the past 12 months? Zero (I did not move) 02/07/2023 Paying for Meds Answer Date Recorded Do you have trouble paying for medicines? No 02/07/2023 Paying Utility Bills Answer Date Record ed Do you have trouble paying your heating or elect ricity bill? No 02/07/2023 Transportation Answer Date Recorded Has the lack of transportati on kept you from medical appointments or from getting medications? Yes 02/07/2023 Unemployment Answer Date Recorded Are you currently unemployed or working on a part-time or temporary basis, and looking for work? No 07/09/2021 Digital Access Answer Date Recorded No 02/08/2025 No 02/08/2025 Reliable internet access at home? Not on file 02/08/2025 Device with a working camera? Not on file Intimate Partner Violence Answer Date R ecorded Denied Basic Needs Not on file 02/07/2023 In the past 12 months have y ou been in a relationship with a person who hurts, threatens, or tries to control you? No 02/07/2023 Worried food would run out Not on file 02/07 In the past 12 months have y ou been in a relationship with a person who hurts, threatens, or tries to control you? No 02/07/2023 Sex and Gender Information Value Date Recorded Sex Assigned at Male 11/04/2020 11:29 PM EST Legal Sex Male 9:35 PM EDT Gender Identity Male 11/04/2020 11:29 PM EST Sexual Orientation Choose not to disclose 2020 11:29 PM EST Last Filed Vital Signs Vital Sign Reading Time Taken Comments Blood Pressure 132/78 08/05/2023 2:27 PM EDT Pulse 71 08/05/2023 2:27 PM EDT Temperature 36.6 C (97.9 F) 02/07/2023 2:18 PM EDT Respiratory Rate 16 08/05/2023 2:27 PM EDT Oxygen Saturation 98% 08/05/2023 2:27 PM EDT Inhaled Oxygen Concentration - - Weight 115.6 kg (254 lb 12.8 oz) 08/05/2023 2:27 PM EDT Height 174 cm (5' 8.5 ) 08/05/2023 2:27 PM EDT Body Mass Index 38.17 08/05/2023 2:27 PM EDT Plan of Treatment Health Maintenance Due Date Last Done Comments COLONOSCOPY 2015 FIT TEST 2015 FOBT 2015 SIGMOIDOSCOPY 2015 VIRTUAL COLONOSCOPY 2015 PNEUMOCOCCAL VACCINES (50+ years) (2 of 2 - PCV) 08/02/2022 08/02/2021 COVID-19 VACCINE ( - season) 2024 07/29/2023, 08/07/2022, 08/24/2021, Additional history exists DEPRESSION SCREENING 08/05/2024 08/05/2023, 08/05/20 23 COLOGUARD 08/13/2024 08/13/2021 COLORECTAL CANCER SCREENING 08/13/2024 SCREENING FOR DIABETES 02/07/2026 02/07/2023, 2022 LIPID PANEL 02/08/2028 02/07/2023, 05/0 02/2022, 01/05/2021, Additional history exists Adult Td,Tdap Booster 08/15/2031 08/15/2021 , 12/03/2018, 06/26/2010, Additional history exists HEPATITIS C SCREENING Completed 08/20/2017 HIV ONE-TIME SCREENING (18-65 YEARS) Completed 08/20/2017 ZOSTER VACCINES Completed 05/04/2023, 02/15/2023 SMOKING STATUS SCREENING (Once After 26 Yrs) Completed 08/05/2023 HEPATITIS A VACCINES Aged Out No long er eligible based on patient's age to complete this topic HIB VACCINES Aged Out No longer eligi ble based on patient's age to complete this topic MENINGOCOCCAL VACCINES (ACWY) Aged Out No longer eligible based on patient's age to complete this topic MENINGOCOCCAL VACCINES (B) Aged Out N o longer eligible based on patient's age to complete this topic Medical Devices Not on file Procedures Procedure Name Priority Date/Time Associated Diagnosis Comments LIPID PANEL Routine 02/07/2023 3:27 PM EDT Mixed hyperlipidemia HEPATITIS C ANTIBODY, QUALITATIVE Routine 08/20/2017 10:56 AM EST Screening for STD (sexually transmitted disease) from Last 3 Months or Most Recently Relevant to Health Maintenance Results * (ABNORMAL) Lipid panel (02/07/2023 3:27 PM EDT) HDL 57 mg/dL [facility] Comment: Interpretation <40 mg/dL: Low HDL cholesterol (major risk factor for CHD) Greater than or equal to 60 mg/dL: High HDL cholesterol ( negative risk factor for CHD) HDL - cholesterol is affected by a number of factors, e.g. smoking, excerise, hormones, sex and age. CHOLESTEROL 185 0 - 240 mg/dL [facility] TRIGLYCERIDES 69 30 - 160 mg/dL [facility] LDL 114 50 - 129 mg/dL [facility] Comment: LDL levels in terms of risk for coronary heart disease: <100 mg/dL: Optimal 100-129 mg/dL: Near or above optimal 130-159 mg/dL: Borderline high 160-189 mg/dL: High >190 mg/dL: Very High CARDIAC RISK RATIO 3.2(L) 3.4 - 5.0 C [facility] Blood 02/07/2023 3:27 PM EDT 02/07/2023 3:31 PM EDT Rebecca Kaur NP LAB BLOOD ORDERABLES Final Resu lt Performing Organization Address [facility]/ZIP Co de Phone Number [address] [phone] * Hepatitis C antibody, qualitative (08/20/2017 10:56 AM EST) HCV Negative Negative [facility] Comment: This is a screening test and should be confirmed with molecular testing Blood 08/20/2017 10:5 6 AM EST 08/20/2017 11:09 AM EST Rebecca Kaur NP LAB BLOOD ORDERABLES Final Resu lt Performing Organization Address [facility] Co de Phone Number [address] [phone] from Last 3 Months or Most Recently Relevant to Health Maintenance Insurance [facility] NON NSPG [employer] [address] [place] [address] NON NSPG PCP [employer] [address] [place] [address] NON NSPG PCP [employer] [place] [place] [address] NON NSPG PCP [employer] [facility] NON NSPG PCP [employer] [facility] NON NSPG PCP [employer] Member Subscriber Plan / Payer (Ef fective 2020-Present) Name:Amanda Cheng Relation to Subscriber:Self Name:Amanda Cheng Payer ID:[id number] Type:[employer] Address: [place] [id number] [employer] NON NSPG PCP [employer] NON NSPG PCP [employer] [place] [place] [address] NON NSPG PCP [employer] Care Teams Beef Lugger Relationship Specialty Start Date End Date Unknown, Unknown, MD PCP - General 12/16/23 Chuck Al MD [address] [place] [phone] [email or web address] Insurance Assigned Provider Internal Medicine 02/18/19 Additional Source Comments The information contained in this document represents components of the legal health record. It is not the complete legal health record.[facility]
[2025-04-29 14:01] VITALS: BP 118/76; BMI 40.0
--- NOTE | 2025-04-29 14:01 | A.OFFPC_ITS ---
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 Instructions: patient d/c cholecalciferol (vitamin D3) 25 mcg PO DAILY cyanocobalamin (vitamin B-12) 1,000 mcg PO DAILY famotidine (Pepcid) 40 mg PO BEDTIME Held on 04/29/25. Instructions: patient d/c omeprazole 40 mg PO BID Held on 04/29/25. Instructions: patient d/c trazodone 50 mg PO BEDTIME PRN Tobacco use date assessed: 01/21/25 Dental Screening Dental Screen Date: 04/29/25 HPI f/u GERD HPI Details 54-year-old male with past medical histo ry of impaired glucose tolerance, generalized anxiety disorder, fatty liver disease last seen 01/2025 coming in for follow up.? In review of the notes, patient was seen by [facility] 03/2025 abdominal pain appeared to not be related to GI and liver scan and lumbar spine x-ray were ordered. Presenting with persistent abdominal pain. The abdominal pain is described as sporadic but persistent, occurring daily. Discontinuation of omeprazole and famotidine did not alter the pain levels. A biliary scan indicated an underactive gallbladder, but it is not the source of the pain. Imaging studies showed degenerative disc disease but no gallstones or significant findings to explain the pain. The patient reports a burning sensation in the abdominal area, which improves after bowel movements, suggesting possible IBS. Dietary modifications, including a low FODMAP diet, have been attempted without significant improvement. Regular consumption of light beer is noted, with advice to eliminate gluten to assess for intolerance. [facility] Medical History Pre-op examination Upper respiratory infection Annual physical exam Colon cancer screening LFT elevation Bruised kidney Surgical History History of endoscopy History of colonoscopy S/P surgical manipulation of ankle joint Hx of shoulder surgery Family History Mother Diabetes Skin cancer Hypertension Thyroid disease Father Diabetes Sister Skin cancer Sister Skin cancer Sister No problems noted. Brother No problems noted. Brother No problems noted. Brother No problems noted. 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 Current occupational exposures/hazards: No Cognitive needs: No Hearing needs: No Vision needs: Yes Questionnaire Thrive Questionnaire Date Thrive assessed: 04/29/25 I am a: Patient What is your living situation today?: I have a steady place to live Within the past 12 months, did the food you bought not last and you didn't have the money to get more?: I choose not to answer this question Within the past 12 months, did you worry whether your food would run out before you got money to buy more?: I choose not to answer this question Do you have trouble paying for medicines?: I choose not to answer this question Do you have trouble getting transportation to medical appointments?: No Do you have trouble paying your heating and electricity bill?: No Do you have trouble taking care of your child, family member or friend?: No Do you have trouble with day-to-day activities such as bathing, preparing meals, shopping, managing finances, etc.?: Yes Are you currently unemployed and looking for a job?: No Are you interested in more education?: No Please select the resources that you would like help with: None Currently or been in a relationship where the following occur: I choose not to answer THRIVE Score: 0 NANCY-7 AMB Questionnaire NANCY-7 Date NANCY - 7 assessed: 04/29/25 Source: Developed by Drs. Alex Vo, Dena Davis, Man Ballesteros and colleagues, with an educational cheryl from [email or web address]. Review of Systems Const Denies body aches, Denies chills, Denies fever(s), Denies headache(s) and Denies poor appetite Eyes Reports no additional complaints ENT Denies dizziness and Denies headache(s) Card Denies chest pain, Denies syncope and Denies dyspnea Resp Denies dyspnea GI Reports as per HPI, Reports abdominal pain, Denies nausea and Denies vomiting Reports no additional complaints Musc Reports no additional complaints and Denies abnormal gait Skin/Breast Reports system reviewed and no additional complaints, except as documented Neuro Denies abnormal gait, Denies dizziness, Denies syncope and Denies headache(s) Psych Reports no additional complaints Physical exam (Primary Care) Vital Signs: Last Vital Signs BP 118/76 04/29/25 14:01 Oxygen Delivery Method Room Air 04/29/25 14:01 BMI result Body Mass Index 40.0 Tobacco/Smoking Status: Tobacco use Status Tobacco use date assessed 01/21/25 04/29/25 14:02 Patient Tobacco Use Status Never used Tobacco 04/29/25 14:02 Tobacco use type Cigarette 04/29/25 14:02 e-Cigarette/Vaping Use Currently Using (THC ) 04/29/25 14:02 Thrive Assessment: Date of Thrive Assessment Date Thrive assessed 04/29/25 04/29/25 14:05 Currently or been in a relationship where the following occur: I choose not to answer Const General: cooperative, healthy appearing, comfortable and no acute distress Orientation/consciousness: patient oriented x3 HENMT Head: Yes normocephalic Ears: hearing grossly normal bilaterally General nose exam: Normal external nose present Eyes General: appearance normal, both eyes and all related structures Conjunctivae: conjunctivae normal Neck Neck: Yes full ROM and Yes no lymphadenopathy Resp Effort & Inspection: normal respiratory effort Auscultation: clear to auscultation bilaterally, no crackles, no rales, no rhonchi and no wheezes Cardio Rate: regular rate Rhythm: regular rhythm GI Palpation (GI): Soft to palpation, not firm, nontender, no guarding, not rigid and No Rebound tenderness present Skin General skin exam: no rashes or lesions noted Neuro General: patient oriented x3 Gait exam (Neuro): Normal gait present Extrem General: Yes normal to inspection, Yes full ROM and No edema Psych Affect: normal affect Attitude: cooperative Insight: Good insight present (Psych) Judgement: Good judgement present (Psych) Coding Level of Care Code Est Pt Level 3 (97374) Diagnoses Right upper quadrant abdominal pain R10.11 Abdominal location: right upper quadrant Allergies T78.40XA Alcohol use disorder F10.90 Obesity (BMI 35.0-39.9 without comorbidity) E66.9 Assessment & Plan Assessment & Plan (1) Abdominal pain: Code(s): R10.9 - Unspecified abdominal pain Category: Medical Qualifiers: Abdominal location: right upper quadrant Qualified Code(s): R10.11 - Right upper quadrant pain Plan: The plan involves dietary modifications, including gluten elimination, to evaluate for intolerance related to abdominal pain. A referral to an band straightener is planned to investigate potential food intolerances or allergies. Monitoring of the underactive gallbladder will continue, although it is not currently linked to the pain. Management of degenerative disc disease will proceed with existing strategies, as no immediate interventions are necessary. Continue to follow up with GI as well. (2) Allergies: Code(s): T78.40XA - Allergy, unspecified, initial encounter Category: Medical Plan: See above (3) Alcohol use disorder: Code(s): F10.90 - Alcohol use, unspecified, uncomplicated Category: Medical Plan: Recommend getting back on the use of alcohol. Referral to comprehensive Care Clinic is always an option as well for this patient. (4) Obesity (BMI 35.0-39.9 without comorbidity): Code(s): E66.9 - Obesity, unspecified Category: Medical Plan: Healthy diet and regular exercise is encouraged. Plan This note was constructed using voice recognition software. While every effort has been made to ensure accuracy and wire bender, still areas may have been included sometimes these areas may affect the content or meeting of the given symptoms. Total time spent caring for the patient today was 20 minutes. This includes time spent before the visit reviewing the chart, time spent during the visit, and time spent after the visit and documentation. Patient was informed and verbally consented to the use of an ambient scribe for clinic note documentation during this visit. Orders: Referrals Allergy & Immunology Referral T78.40XA - Allergy, unspecified, initial encounter Medications: On Hold famotidine (Pepcid) Hold Comment: patient d/c 40 mg PO BEDTIME 30 tabs 12RF bupropion HCl XL Hold Comment: patient d/c 150 mg PO QAM 90 tabs 1RF omeprazole Hold Comment: patient d/c 40 mg PO BID 60 caps 3RF K21.9 - Gastro- esophageal reflux disease without esophagitis
== END 2025-04-29 14:46 | disposition home or self-care (01) ==
LOC: HO.HMCH 13:55
PROVIDERS: PCP Internal Medicine
DX: R10.11 Right upper quadrant pain (principal); T78.40XA Allergy, unspecified, initial encounter; E66.9 Obesity, unspecified; Z68.41 Body mass index [BMI] 40.0-44.9, adult; F10.90 Alcohol use, unspecified, uncomplicated

== ENCOUNTER → 2025-04-29 13:55 | Outpatient (BNVA) | payer OTHER, SELFPAY | PROVIDERS: PCP Internal Medicine | DX: R10.11 Right upper quadrant pain (principal); T78.40XA Allergy, unspecified, initial encounter; F10.90 Alcohol use, unspecified, uncomplicated; E66.9 Obesity, unspecified; Z68.41 Body mass index [BMI] 40.0-44.9, adult | CPT/HCPCS: 99212 ==

== ENCOUNTER 2025-07-04 11:17 | Outpatient (AMB) | payer OTHER, SELFPAY ==
[2025-07-04 11:21] VITALS: BP 136/88; PULSE 77; TEMP 36.3; O2SAT 98; BMI 40.5
--- NOTE | 2025-07-04 11:21 | A.OFFPC_ITS ---
Vital Signs 07/04/25 11:21 Height 5 ft 8 in Weight 266 lb 4 oz BMI 40.5 BP 136/88 Blood Pressure Location Lt brachial Position Sitting Pulse 77 Pulse Source Pulse Oximeter Temp 97.3 F Temp Source Temporal Artery Scan Pulse Oximetry (%) 98 Oxygen Delivery Method Room Air Intake Visit Reasons: Fatigue, sore throat Allergies Iodinated Contrast Media (IV CONTRAST) Allergy (Severe, Verified 07/04/25 11:24) ANAPHYLAXIS iodine Adverse Reaction (Severe, Verified 07/04/25 11:24) Anaphylaxis Medication List - Last Reconciled 07/04/25 by Gaye Miguel MD cholecalciferol (vitamin D3) 25 mcg PO DAILY cromolyn 100 mg PO TID prednisone Prednisone 50 mg by mouth (4 doses), 1 Day before you test at 6pm, 12pm and at 6am on the appointment date, Bring 1 tab of Prednisone to the appointment to take prior to testing orally daily; trazodone 50 mg PO BEDTIME PRN Tobacco use date assessed: 07/04/25 Dental Screening Dental Screen Date: 07/04/25 Did you have a dental visit in the last 12 months?: Yes Did you have a dental problem in the last 6 months where you did not have access to dental care?: No Was dental information given to patient?: Patient has dentist HPI Fatigue, sore throat HPI Details sore throat 3 days tired, feverish, , pain on swallowing , no cough, no sob, no fevers, , no diarrhea. 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 [facility] Medical History Pre-op examination Upper respiratory infection Annual physical exam Colon cancer screening LFT elevation Bruised kidney Surgical History History of endoscopy History of colonoscopy S/P surgical manipulation of ankle joint Hx of shoulder surgery Family History Mother Diabetes Skin cancer Hypertension Thyroid disease Father Diabetes Sister Skin cancer Sister Skin cancer Sister No problems noted. Brother No problems noted. Brother No problems noted. Brother No problems noted. Other Mental health disorder Substance use disorder Social History (Reviewed 07/04/25 @ 11:24 by MARIANNE Maier Housing: Apartment Alcohol intake: current Comment: 2x a week 3 beers Patient Tobacco Use Status: Never used Tobacco Tobacco use type: Cigarette Years Smoked: smoke cannabis e-Cigarette/Vaping Use: Currently Using (THC ) Second Hand Smoke Exposure: Yes Substance Use Type: Marijuana service: No Current occupational status: employed Current occupation: [employer] Current occupational exposures/hazards: No Cognitive needs: No Hearing needs: No Vision needs: Yes Questionnaire PHQ-9 Over the last 2 weeks, how often have you been bothered by any of the following problems? 1. Little interest or pleasure in doing things: nearly every day 2. Feeling down, depressed, or hopeless: nearly every day 3. Trouble falling or staying asleep, or sleeping too much: more than half the days 4. Feeling tired or having little energy: several days 5. Poor appetite or overeating: several days 6. Feeling bad about yourself - or that you are a failure or have let yourself or your family down: nearly every day 7. Trouble concentrating on things, such as reading the newspaper or watching television: nearly every day 8. Moving or speaking so slowly that other people could have noticed. Or the opposite - being so fidgety or restless that you have been moving around a lot more than usual: not at all 9. Thoughts that you would be better off or of hurting yourself in some way: not at all Total score: 16 Depression Screening Interpretation: Positive Depression Screening Follow-up: Existing condition and In treatment Depression Screening Done: Yes Source: Developed by Drs. Alex Vo, Dena Davis, Man Ballesteros and colleagues, with an educational cheryl from [employer]. Thrive Questionnaire Date Thrive assessed: 11/19/24 I am a: Patient What is your living situation today?: I have a steady place to live Within the past 12 months, did the food you bought not last and you didn't have the money to get more?: I choose not to answer this question Within the past 12 months, did you worry whether your food would run out before you got money to buy more?: I choose not to answer this question Do you have trouble paying for medicines?: I choose not to answer this question Do you have trouble getting transportation to medical appointments?: No Do you have trouble paying your heating and electricity bill?: No Do you have trouble taking care of your child, family member or friend?: No Do you have trouble with day-to-day activities such as bathing, preparing meals, shopping, managing finances, etc.?: Yes Are you currently unemployed and looking for a job?: No Are you interested in more education?: No Please select the resources that you would like help with: None Currently or been in a relationship where the following occur: I choose not to answer THRIVE Score: 0 AUDIT C Alcohol Use Questionnaire (AUDIT-C) 1. How often do you have a drink containing alcohol?: 2-3 times a week 2. How many drinks containing alcohol do you have on a typical day when you are drinking?: 5 or 6 3. How often do you have six or more drinks on one occasion?: Monthly Total Score: 7 NANCY-7 AMB Questionnaire NANCY-7 Date NANCY - 7 assessed: 04/29/25 Feeling nervous, anxious, or on edge: 3 = Nearly every day Not being able to stop or control worryin = Nearly every day Worrying too much about different things: 3 = Nearly every day Trouble relaxin = Nearly every day Being so restless that it is hard to sit still: 3 = Nearly every day Becoming easily annoyed or irritable: 3 = Nearly every day Feeling afraid as if something awful might happen: 2 = More than half the days Total NANCY-7 score (0-4 normal; 5-9 mild; 10-14 moderate; 15-21 severe): 20 Source: Developed by Drs. Alex Vo, Dena Davis, Man Ballesteros and colleagues, with an educational cheryl from [employer]. Physical exam (Primary Care) Vital Signs: Last Vital Signs Temp 97.3 F 07/04/25 11:21 Pulse 77 07/04/25 11:21 BP 136/88 07/04/25 11:21 Pulse Ox 98 07/04/25 11:21 Oxygen Delivery Method Room Air 07/04/25 11:21 BMI result Body Mass Index 40.5 Tobacco/Smoking Status: Tobacco use Status Tobacco use date assessed 07/04/25 07/04/25 11:28 Patient Tobacco Use Status Never used Tobacco 07/04/25 11:28 Tobacco use type Cigarette 07/04/25 11:28 e-Cigarette/Vaping Use Currently Using (THC ) 07/04/25 11:28 PHQ-9: PHQ-9 Score PHQ-9: Total score 16 07/04/25 12:12 Depression Screening Interpretation: Positive Depression Screening Follow-up: Existing condition and In treatment Thrive Assessment: Date of Thrive Assessment Date Thrive assessed 11/19/24 07/04/25 11:28 Currently or been in a relationship where the following occur: I choose not to answer Const General: alert; No acute distress Eyes Conjunctivae: conjunctivae normal Resp Auscultation: clear to auscultation bilaterally Cardio Rate: regular rate Rhythm: regular rhythm GI Inspection: Yes normal to inspection Extrem General: Yes normal to inspection and No edema Results AMB Rapid Strep AMB Rapid Strep Negative Last Edit by Yvette Shields CMA on 07/04/25 11:35 Results Reviewed Results Reviewed: Laboratory Last Values Strep Scn Rapid Clinic Negative 07/04/25 11:28 Coding Level of Care Code Est Pt Level 3 (73272) Diagnoses Obesity (BMI 35.0-39.9 without comorbidity) E66.9 Hepatic steatosis K76.0 Generalized anxiety disorder F41.1 Pharyngitis J02.9 Assessment & Plan Assessment & Plan (1) Obesity (BMI 35.0-39.9 without comorbidity): Code(s): E66.9 - Obesity, unspecified Category: Medical Plan: Diet and exercise (2) Hepatic steatosis: Comment: Baseline Laboratory Tests 02/25/24 WBC 5.1 Hgb 14.2 Hct 40.7 L MCV 97.8 MCH 34.1 H Plt Count 239 Estimated GFR > 60 Total Bilirubin 0.6 AST 45 H ALT 85 H Alkaline Phosphatase 57 Free T4 1.22 03/25/24 09:01 Hep Bs Antigen Negative Hep Bs Antibody NONREACTIVE Hep B Core Total Ab Nonreactive Hepatitis C Ab (EIA) Nonreactive CURRENT LABS US ABD 03/23/24 FINDINGS: PANCREAS: Limited visualization of pancreatic tail and head. Imaged portion of pancreatic body is unremarkable. ABDOMINAL AORTA: Limited visualization particularly of the mid and proximal abdominal aorta. Imaged portions of the pwz-fc-tmemcg abdominal aorta are unremarkable. INFERIOR VENA CAVA: Visualized portions are normal. LIVER: Increased hepatic parenchymal heterogeneity and echogenicity could be associated with hepatocellular disease/hepatic steatosis and substantially limits visualization. Correlation with liver function tests and clinical exam recommended to determine further management. Severely limited visualization, with particularly poor visualization of the left hepatic lobe. GALLBLADDER: No gallstones. No gallbladder wall thickening. COMMON BILE DUCT: Normal in caliber measuring 0.20 cm in diameter. RIGHT KIDNEY: No hydronephrosis. No renal calculi. Limited visualization. The kidney measures 10.3 cm in maximum dimension. LEFT KIDNEY: No hydronephrosis. No renal calculi. Limited visualization. The kidney measures 12.9 cm in maximum dimension. SPLEEN: Normal. The spleen measures 9.9 cm in maximum dimension. FREE FLUID: None. US/US abdomen complete IMPRESSION: Increased hepatic parenchymal heterogeneity and echogenicity could be associated with hepatocellular disease/hepatic steatosis and substantially limits visualization. Correlation with liver function tests and clinical exam recommended to determine further management. Code(s): K76.0 - Fatty (change of) liver, not elsewhere classified Category: Medical Plan: Patient has seen gastroenterology, low-fat diet and exercise (3) Generalized anxiety disorder: Comment: [facility] weekly Code(s): F41.1 - Generalized anxiety disorder Category: Medical Plan: On trazodone and sees counseling. (4) Pharyngitis: Code(s): J02.9 - Acute pharyngitis, unspecified Category: Medical Plan History of Present Illness The patient is a 54-year-old male presenting with a persistent sore throat. The sore throat began on Friday and has not improved, although it is not more painful when swallowing. The patient denies fever, cough, or nasal discharge, and reports no shortness of breath. The patient has a history of obesity and impaired glucose tolerance, which are being managed with lifestyle modifications including a low-fat diet and exercise. He also has generalized anxiety disorder, for which he has been prescribed trazodone, although he has not taken it recently. The patient was last seen on April 29, 2025, for abdominal pain, which was evaluated with a nuclear scan showing a low normal gallbladder ejection fraction of 35%. He has also seen a vessel traffic officer and had a spine x-ray showing degenerative changes in the lumbar spine. Laboratory tests from November 23 showed normal blood counts, good renal and liver function, but low vitamin D levels. Health Maintenance - Low-fat diet and exercise for obesity and impaired glucose tolerance - Monitoring vitamin D levels due to previous low results Social History - Exercise: Engages in physical activity as part of lifestyle modifications for obesity and impaired glucose tolerance Review of Systems - General: Denies fever - Respiratory: Denies cough or shortness of breath - Gastrointestinal: Denies diarrhea - ENT: Reports persistent sore throat since Friday, denies nasal discharge Physical Exam - Throat: Mild erythema, no significant redness or discharge observed Results - Nuclear scan: Low normal gallbladder ejection fraction of 35%, no cystic duct obstruction - Spine x-ray: Degenerative changes of the lumbar spine - Laboratory tests (November 23): Normal blood counts, good renal and liver function, low vitamin D levels Plan Patient was informed and verbally consented to the use of an ambient scribe for clinic note documentation during this visit. 1. Sore Throat The sore throat is suspected to be viral in nature, given the absence of significant redness or discharge and the lack of other symptoms such as fever or cough. The patient is advised to use bssh-tbw-jujhaap lozenges to numb the throat and ensure adequate fluid intake. If symptoms worsen, antibiotics may be considered, and a culture has been sent to rule out sexually transmitted infections. 2. Obesity The patient is advised to continue with lifestyle modifications, including a low-fat diet and regular exercise, to manage obesity and impaired glucose tolerance. 3. Generalized Anxiety Disorder The patient has been prescribed trazodone for generalized anxiety disorder, although he has not taken it recently. Continued monitoring and potential adjustment of medication may be necessary based on symptomatology. 4. Low Vitamin D Levels The patient is advised to monitor vitamin D levels and continue supplementation as needed. Discussion Notes I discussed with the patient that the sore throat appears to be viral, and zhyv-mbl-uziwyax lozenges can help alleviate symptoms. We agreed to monitor the symptoms and consider antibiotics if there is no improvement. A culture was sent to rule out sexually transmitted infections, and the patient was reassured that there is no need to postpone the upcoming CAT scan. Patient Instructions - Use dark-mto-pxngajk lozenges to numb the throat and drink plenty of fluids. - Monitor symptoms and contact the office if there is no improvement. - Continue with a low-fat diet and regular exercise. - Monitor vitamin D levels and continue supplementation as needed. Orders: Orders AMB Rapid Strep Screen Today Z13.9 - Encounter for screening, unspecified Syphilis Screen Today M54.50 - Low back pain, unspecified CT NG RNA TMA, Throat Today J02.9 - Acute pharyngitis, unspecified HIV-1 Gen Rflx RNA Qn PCR Today M5.50 - Low back pain, unspecified Hepatitis B,C Profile Today M5.50 - Low back pain, unspecified, R79.89 - Other specified abnormal findings of blood chemistry Vitamin D 25-OH Total Today M5.50 - Low back pain, unspecified Vitamin B12 and Folate Today M5.50 - Low back pain, unspecified SARS-CoV2/FLU/RSV Today J02.9 - Acute pharyngitis, unspecified
--- OUTSIDE RECORDS SUMMARY | 2025-07-04 13:57 | XMS_ITS | Clinical Summary ---
Author Organization [facility] Address [address] [place] [id number] Phone Care Team Providers Care Organ Tuner Electronic Name Role Phone Chuck Al MD Unavailable [...] mRNA, PF 08/24/2021,11/29/2020,11/08/2020 Hepatitis B Adult 09/03/2023,08/05/2023 INFLUENZA, SPLIT VIRUS, TRIV ALENT W/ PRESERVATIVE IM 09/11/2016,08/22/2015,08/06/2014,10/22 Influenza Quadrivalent MDCK Preservative Free IM 08/07/2022,08/25/2019 Influenza Quadrivalent Prese rvative Free IM 07/29/2023,07/11/2021,06/28/2020,07/16 Influenza trivalent preserva tive free intradermal 09/07/2013 [...] (2 of 2 - PCV) 08/02/2022 08/02/2021 DEPRESSION SCREENING 08/05/2024 08/05/2023, 08/05/20 23 COLOGUARD 08/13/2024 08/13/2021 COLORECTAL CANCER SCREENING 08/13/2024 INFLUENZA VACCINE (#1) 2025 , 08/07/2022, 07/11/2021, Additional history exists COVID-19 VACCINE ( season) 2025 07/29/2023, 08/07/2022, 08/24/2021, Additional history exists SCREENING FOR DIABETES 02/07/2026 02/07/2023, 2022 LIPID [...] (02/07/2023 3:27 PM EDT) HDL 57 mg/dL [facility] Comment: Interpretation <40 mg/dL: Low HDL cholesterol (major risk factor for CHD) Greater than or equal to 60 mg/dL: High HDL cholesterol ( negative risk factor for CHD) HDL - cholesterol is affected by a number of factors, e.g. smoking, excerise, hormones, sex and age. CHOLESTEROL 185 0 - 240 mg/dL [facility] TRIGLYCERIDES 69 30 - 160 mg/dL [facility] LDL 114 50 - 129 mg/dL [facility] Comment: LDL levels in terms of risk for coronary heart disease: <100 mg/dL: Optimal 100-129 mg/dL: Near or above optimal 130-159 mg/dL: Borderline high 160-189 mg/dL: High >190 mg/dL: Very High CARDIAC RISK RATIO 3.2(L) 3.4 - 5.0 C [facility] Blood 02/07/2023 3:27 PM EDT 02/07/2023 3:31 PM EDT Rebecca Kaur NP LAB BLOOD ORDERABLES Final Resu lt Performing Organization Address [facility] Co de Phone Number [address] [phone] * Hepatitis C antibody, qualitative (08/20/2017 10:56 AM EST) HCV Negative Negative [facility] Comment: This is a screening test and should be confirmed with molecular testing Blood 08/20/2017 10:5 6 AM EST 08/20/2017 11:09 AM EST Rebecca Kaur NP LAB BLOOD ORDERABLES Final Resu lt Performing Organization Address [facility] Co de Phone Number [address] [phone] from Last 3 Months or Most Recently Relevant to Health Maintenance Insurance WELLSENSE NON NSPG PCP [employer]AR[employer] COMMERCIAL VASILIYENSE NON NSPG PCP [employer] COMMERCIAL VASILIYENSE NON NSPG PCP [employer] COMMERCIAL [employer] NON NSPG PCP [employer] [place]ER[place] [address] [address] NON NSPG PCP [employer]AR[employer] COMM[employer] [address] [address] NON NSPG PCP CLARITY COMMERCIAL [facility] NON NSPG PCP CLAR[employer] COMMERCIAL [address] [place], [place] [address]ENSE NON NSPG PCP [employer] COMMERCIAL [facility] NON NSPG PCP [employer] COMMERCIAL Care Teams Organ Tuner Electronic Relationship Specialty Start Date End Date Unknown, Unknown, MD PCP - General 12/16/23 Chuck Al MD [address] [place] [id number] [email or web address] Insurance Assigned Provider Internal Medicine 02/18/19 Additional Source Comments The information contained in this document represents components of the legal health record. It is not the complete legal health record.[facility]
== END 2025-07-04 12:32 | disposition home or self-care (01) ==
LOC: HO.HMCH 11:18
PROVIDERS: PCP Internal Medicine; Visit Provider Internal Medicine
DX: J02.9 Acute pharyngitis, unspecified (principal); E66.9 Obesity, unspecified; Z68.41 Body mass index [BMI] 40.0-44.9, adult; K76.0 Fatty (change of) liver, not elsewhere classified; F41.1 Generalized anxiety disorder

== ENCOUNTER 2025-07-04 11:17 | Outpatient (REF) | payer OTHER, SELFPAY ==
[2025-07-04 13:38] LABS: Resp Syncy Virus RNA Qual PCR NEGATIVE (Negative); SARS COV2 PCR INHOUSE NEGATIVE (Negative)
[2025-07-04 14:34] LABS: HBS Num1 0.08 mIU/mL (0-7.99); HBc Num1 0.09 S/CO (0.00-0.79); HBsAGNum1 0.42 S/CO (0.00-0.99); Hepatitis B Surface Antigen Negative (Negative); ~HepC Num1 0.16 S/CO (0.00-0.79); ~Hepatitis B Surface Antibody NONREACTIVE (Nonreactive); ~Hepatitis C Antibody Nonreactive (Nonreactive)
[2025-07-04 14:37] LABS: Syphilis Screen Nonreactive (Nonreactive)
[2025-07-04 14:50] LABS: Folate 13.2 ng/mL (> or = 4.0); Vitamin B12 576 pg/mL (200-900)
[2025-07-07 18:04] LABS: HIV RNA PCR Qn Copies Not Detected Copies/mL; HIV RNA PCR Qn Log Copies Not Detected Log cps/mL
== END 2025-07-04 11:18 | disposition home or self-care (01) ==
LOC: HO.LAB 11:17
PROVIDERS: PCP Internal Medicine; Visit Provider Internal Medicine
DX: R79.89 Other specified abnormal findings of blood chemistry (principal); M54.50 Low back pain, unspecified; J02.9 Acute pharyngitis, unspecified; E66.9 Obesity, unspecified; F41.1 Generalized anxiety disorder; K76.0 Fatty (change of) liver, not elsewhere classified; Z79.52 Long term (current) use of systemic steroids; Z79.899 Other long term (current) drug therapy; Z68.41 Body mass index [BMI] 40.0-44.9, adult
CPT/HCPCS: 82306; 82607; 82746; 86704; 86706; 86780; 86803; 87340; 87536; 87637; 87880; 87900; 99212

== ENCOUNTER 2025-07-11 11:53 | Outpatient (REF) | payer OTHER, SELFPAY ==
--- NOTE | ~2025-07-11 | CT_ITS ---
EXAMINATION: CT ABDOMEN AND PELVIS WITH CONTRAST CLINICAL INFORMATION: Abnormal findings on diagnostic imaging of other abdominal region. COMPARISON: CT abdomen and pelvis 07/10/2024. TECHNIQUE: Multidetector volumetric images were obtained from the superior aspect of the liver through the pubic symphysis following administration 85 mL of Omnipaque 350 intravenous contrast. Sagittal and coronal reformatted images were obtained on the technologist's workstation. Oral contrast: No This CT examination was performed using dose optimization techniques as appropriate, variously including the following: *Automated exposure control *Adjustment of mA and/or kV according to patient size (this includes techniques or standardized protocols for targeted exams where dose is matched to indication/reason for exam; i.e. extremities or head) *Use of iterative reconstruction technique FINDINGS: LUNG BASES: Lung bases are clear. Heart size is normal. There are no effusions. LIVER, GALLBLADDER, AND BILIARY TREE: The liver is normal in size, shape, and attenuation. No focal hepatic lesion or biliary ductal dilatation is present. The gallbladder is unremarkable with no evidence of radiopaque gallstones, gallbladder wall thickening, or obvious pericholecystic inflammatory changes. PANCREAS: Unremarkable. SPLEEN: Unremarkable. ADRENAL GLANDS: Unremarkable. KIDNEYS AND URETERS: Right mid to lower renal cortical scar. The kidneys otherwise appear unremarkable in size, shape, and attenuation. No hydronephrosis, hydroureter, or calculi seen. BLADDER: Normal in appearance. GASTROINTESTINAL TRACT: Normal appendix. Probable small type I hiatus hernia. Stomach is normal. Duodenum is normal. Small bowel is normal in caliber and course. No colonic abnormality. The rectum appears normal. PERITONEUM: No free air or ascites. Stable mary mesentery in the central small bowel mesentery with small associated lymph nodes. This has a stable appearance and is consistent with stable sclerosing mesenteritis. ABDOMINAL WALL: There is a paraumbilical fat-containing hernia, with hernia sac measuring 4.1 cm in size. LYMPH NODES: There is no abnormal lymphadenopathy present. VASCULAR: Normal. PELVIC VISCERA: The prostate and seminal vesicles are unremarkable. OSSEOUS STRUCTURES: There is no suspicious lytic or blastic bone lesion. There are mild degenerative changes in the spine. Disc vacuum phenomenon at L5-S1 with disc degeneration. Facet spurring at L4-5 and L5-S1. CT/CT abdomen pelvis w IV con IMPRESSION: 1. No acute finding in the abdomen or pelvis. 2. Stable appearance of mary mesentery in keeping with stable sclerosing mesenteritis. 3. Probable tiny type I hiatus hernia. 4. Similar 4.1 cm periumbilical fat-containing hernia Electronically signed by: Russ El MD 07/11/2025 01:35 PM EDT
[2025-07-11] MEDS: iohexoL 350 MG/ML 100 ML INFUS..BTL IV (13:10)
[2025-07-11 17:13] LABS: Creatinine POC 0.7 mg/dL (0.5-1.4); GFR POC > 60
== END 2025-07-11 11:54 | disposition home or self-care (01) ==
LOC: HO.CT 11:53
PROVIDERS: PCP Internal Medicine; Visit Provider Nurse Practitioner
DX: R93.5 Abnormal findings on diagnostic imaging of other abdominal regions, including retroperitoneum (principal)
CPT/HCPCS: 74177; 82565; Q9967

== ENCOUNTER → 2025-07-11 11:55 | Outpatient (BNV) | payer OTHER, SELFPAY | PROVIDERS: PCP Internal Medicine; Visit Provider Radiology Diagnostic Radiology | DX: K65.4 Sclerosing mesenteritis (principal); K44.9 Diaphragmatic hernia without obstruction or gangrene | CPT/HCPCS: 74177 ==

== ENCOUNTER 2025-08-16 15:33 | Outpatient (AMB) | payer OTHER, SELFPAY ==
[2025-08-16 15:43] VITALS: BP 132/88; PULSE 75; TEMP 36.3; O2SAT 99; BMI 41.7
--- NOTE | 2025-08-16 15:43 | MHC.PC.OV ---
Vital Signs 08/16/25 15:43 Height 5 ft 8 in Weight 274 lb BMI 41.7 BP 132/88 Blood Pressure Location Lt brachial Position Sitting Pulse 75 Pulse Source Pulse Oximeter Temp 97.3 F Temp Source Temporal Artery Scan Pulse Oximetry (%) 99 Oxygen Delivery Method Room Air Intake Visit Reasons: f/u IBS w/ Po Allergies Iodinated Contrast Media (IV CONTRAST) Allergy (Severe, Verified 08/16/25 15:46) ANAPHYLAXIS iodine Adverse Reaction (Severe, Verified 08/16/25 15:46) Anaphylaxis Medication List - Last Reconciled 08/16/25 by Gaye Miguel MD cholecalciferol (vitamin D3) 25 mcg PO DAILY cromolyn 100 mg PO TID trazodone 50 mg PO BEDTIME PRN Tobacco use date assessed: 08/16/25 Dental Screening Dental Screen Date: 08/16/25 Did you have a dental visit in the last 12 months?: Yes Did you have a dental problem in the last 6 months where you did not have access to dental care?: No Was dental information given to patient?: Patient has dentist HPI f/u IBS w/ Po HPI 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 has nt been taking the trazodone. [facility] Medical History Pre-op examination Upper respiratory infection Annual physical exam Colon cancer screening LFT elevation Bruised kidney Surgical History History of endoscopy History of colonoscopy S/P surgical manipulation of ankle joint Hx of shoulder surgery Family History Mother Diabetes Skin cancer Hypertension Thyroid disease Father Diabetes Sister Skin cancer Sister Skin cancer Sister No problems noted. Brother No problems noted. Brother No problems noted. Brother No problems noted. 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 1. Little interest or pleasure in doing things: nearly every day 2. Feeling down, depressed, or hopeless: nearly every day 3. Trouble falling or staying asleep, or sleeping too much: more than half the days 4. Feeling tired or having little energy: several days 5. Poor appetite or overeating: several days 6. Feeling bad about yourself - or that you are a failure or have let yourself or your family down: nearly every day 7. Trouble concentrating on things, such as reading the newspaper or watching television: nearly every day 8. Moving or speaking so slowly that other people could have noticed. Or the opposite - being so fidgety or restless that you have been moving around a lot more than usual: not at all 9. Thoughts that you would be better off or of hurting yourself in some way: not at all Total score: 16 Depression Screening Interpretation: Positive Depression Screening Follow-up: Existing condition and In treatment Depression Screening Done: Yes Source: Developed by Drs. Alex Vo, Dena Davis, Man Ballesteros and colleagues, with an educational cheryl from [employer]. Thrive Questionnaire Date Thrive assessed: 11/19/24 I am a: Patient What is your living situation today?: I have a steady place to live Within the past 12 months, did the food you bought not last and you didn't have the money to get more?: I choose not to answer this question Within the past 12 months, did you worry whether your food would run out before you got money to buy more?: I choose not to answer this question Do you have trouble paying for medicines?: I choose not to answer this question Do you have trouble getting transportation to medical appointments?: No Do you have trouble paying your heating and electricity bill?: No Do you have trouble taking care of your child, family member or friend?: No Do you have trouble with day-to-day activities such as bathing, preparing meals, shopping, managing finances, etc.?: Yes Are you currently unemployed and looking for a job?: No Are you interested in more education?: No Please select the resources that you would like help with: None Currently or been in a relationship where the following occur: I choose not to answer THRIVE Score: 0 AUDIT C Alcohol Use Questionnaire (AUDIT-C) 1. How often do you have a drink containing alcohol?: 2-3 times a week 2. How many drinks containing alcohol do you have on a typical day when you are drinking?: 5 or 6 3. How often do you have six or more drinks on one occasion?: Monthly Total Score: 7 NANCY-7 AMB Questionnaire NANCY-7 Date NANCY - 7 assessed: 04/29/25 Feeling nervous, anxious, or on edge: 3 = Nearly every day Not being able to stop or control worryin = Nearly every day Worrying too much about different things: 3 = Nearly every day Trouble relaxin = Nearly every day Being so restless that it is hard to sit still: 3 = Nearly every day Becoming easily annoyed or irritable: 3 = Nearly every day Feeling afraid as if something awful might happen: 2 = More than half the days Total NANCY-7 score (0-4 normal; 5-9 mild; 10-14 moderate; 15-21 severe): 20 Source: Developed by Drs. Alex Vo, Dena Davis, Man Ballesteros and colleagues, with an educational cheryl from [employer]. Physical exam (Primary Care) Vital Signs: Last Vital Signs Temp 97.3 F 08/16/25 15:43 Pulse 75 08/16/25 15:43 BP 132/88 08/16/25 15:43 Pulse Ox 99 08/16/25 15:43 Oxygen Delivery Method Room Air 08/16/25 15:43 BMI result Body Mass Index 41.7 Tobacco/Smoking Status: Tobacco use Status Tobacco use date assessed 08/16/25 08/16/25 15:47 Patient Tobacco Use Status Never used Tobacco 08/16/25 15:47 Tobacco use type Cigarette 08/16/25 15:47 e-Cigarette/Vaping Use Currently Using (THC ) 08/16/25 15:47 PHQ-9: PHQ-9 Score PHQ-9: Total score 16 08/16/25 15:47 Depression Screening Interpretation: Positive Depression Screening Follow-up: Existing condition and In treatment Thrive Assessment: Date of Thrive Assessment Date Thrive assessed 11/19/24 08/16/25 15:47 Currently or been in a relationship where the following occur: I choose not to answer Const General: alert; No acute distress Eyes Conjunctivae: conjunctivae normal Resp Auscultation: clear to auscultation bilaterally Cardio Rate: regular rate Rhythm: regular rhythm GI Inspection: Yes normal to inspection Extrem General: Yes normal to inspection and No edema Coding Level of Care Code Est Pt Level 4 (19865) Complex EM visit Add On G2211 Diagnoses Allergies T78.40XA Generalized anxiety disorder F41.1 Obesity (BMI 35.0-39.9 without comorbidity) E66.9 Hepatic steatosis K76.[address] of the abdomen R93.5 Assessment & Plan Assessment & Plan (1) Allergies: Code(s): T78.40XA - Allergy, unspecified, initial encounter Category: Medical (2) Generalized anxiety disorder: Comment: [facility] weekly Code(s): F41.1 - Generalized anxiety disorder Category: Medical Plan: Continue with trazodone (3) Obesity (BMI 35.0-39.9 without comorbidity): Code(s): E66.9 - Obesity, unspecified Category: Medical Plan: Diet and exercise (4) Hepatic steatosis: Comment: Baseline Laboratory Tests 02/25/24 WBC 5.1 Hgb 14.2 Hct 40.7 L MCV 97.8 MCH 34.1 H Plt Count 239 Estimated GFR > 60 Total Bilirubin 0.6 AST 45 H ALT 85 H Alkaline Phosphatase 57 Free T4 1.22 03/25/24 09:01 Hep Bs Antigen Negative Hep Bs Antibody NONREACTIVE Hep B Core Total Ab Nonreactive Hepatitis C Ab (EIA) Nonreactive CURRENT LABS US ABD 03/23/24 FINDINGS: PANCREAS: Limited visualization of pancreatic tail and head. Imaged portion of pancreatic body is unremarkable. ABDOMINAL AORTA: Limited visualization particularly of the mid and proximal abdominal aorta. Imaged portions of the [id number] abdominal aorta are unremarkable. INFERIOR VENA CAVA: Visualized portions are normal. LIVER: Increased hepatic parenchymal heterogeneity and echogenicity could be associated with hepatocellular disease/hepatic steatosis and substantially limits visualization. Correlation with liver function tests and clinical exam recommended to determine further management. Severely limited visualization, with particularly poor visualization of the left hepatic lobe. GALLBLADDER: No gallstones. No gallbladder wall thickening. COMMON BILE DUCT: Normal in caliber measuring 0.20 cm in diameter. RIGHT KIDNEY: No hydronephrosis. No renal calculi. Limited visualization. The kidney measures 10.3 cm in maximum dimension. LEFT KIDNEY: No hydronephrosis. No renal calculi. Limited visualization. The kidney measures 12.9 cm in maximum dimension. SPLEEN: Normal. The spleen measures 9.9 cm in maximum dimension. FREE FLUID: None. US/US abdomen complete IMPRESSION: Increased hepatic parenchymal heterogeneity and echogenicity could be associated with hepatocellular disease/hepatic steatosis and substantially limits visualization. Correlation with liver function tests and clinical exam recommended to determine further management. Code(s): K76.0 - Fatty (change of) liver, not elsewhere classified Category: Medical Plan: Low-fat diet and exercise (5) Abnormal CT of the abdomen: Comment: 06/2024= mary mesentery , June 2025 Code(s): R93.5 - Abnormal findings on diagnostic imaging of other abdominal regions, including retroperitoneum Category: Medical Plan: Continue to monitor Plan History of Present Illness The patient is a 55-year-old male presenting for a follow-up visit. His medical history includes morbid obesity, impaired glucose tolerance, generalized anxiety disorder, hepatic steatosis, adult ADHD, and alcohol use disorder. He was last seen in June 2025 for pharyngitis. An abdominal CT scan in June 2025 showed stable sclerosing mesenteritis with small associated lymph nodes, a hiatal hernia, a 4.1 cm paraumbilical fat-containing hernia, and mild degenerative changes of the spine. The patient reports that his abdominal pain has significantly improved with cromolyn, prescribed by an missile tracking technician, which has enhanced his quality of life. His last blood work in November revealed a normal blood count without anemia, normal electrolytes, good renal and liver function, and good LDL cholesterol, B12, and thyroid levels. He has a history of a vitamin B deficiency. His current medications are vitamin D, cromolyn, and trazodone, though he has been non-adherent with vitamin D and has not needed trazodone due to improved mood and reduced anxiety. The patient reports drinking a six-pack of beer three times a week and is working with a therapist to address his relationship with alcohol. He reports exercising at the [employer]. He is up to date on his shingles, tetanus, pneumonia, influenza, and COVID-19 immunizations, as well as his colonoscopy. Previous STI screening was notable for a reactive syphilis test, with nonreactive hepatitis B and non-detected HIV results. Health Maintenance A lab request for fasting bloodwork, including liver function and vitamin D levels, was provided for the patient to complete in approximately three months. A follow-up office visit is scheduled for about three months. The patient is up to date on all recommended immunizations and his colonoscopy. Social History - Substance Use: The patient has a history of alcohol use disorder. - He reports current alcohol consumption of a six-pack of beer three times a week and is working with a therapist to reduce his intake. - Exercise: The patient reports exercising at the [facility], including recently completing two miles on an elliptical machine. - Diet: The patient acknowledges that his diet has been Review of Systems - Constitutional: Reports feeling fantastic. - Psychiatric: Denies anxiety, reports improved mood. - Gastrointestinal: Reports significant improvement in abdominal pain since starting cromolyn. - Genitourinary: Denies problems with urination. - Reports occasional nocturia, waking once at 6 AM. - Dental: Reports a chipped tooth one month ago, which has been repaired by a dentist. - All other systems reviewed and are negative. Physical Exam Results - Labs from November: Normal blood count with no anemia, normal electrolytes, good renal and liver function, good LDL cholesterol, and normal B12 and thyroid levels. - Previous Sexually Transmitted Infection (STI) Panel: Syphilis test was reactive, Hepatitis B was nonreactive, and HIV was not detected. - Imaging (Abdominal CT Scan, June 2025): Stable sclerosing mesenteritis with small associated lymph nodes. - Hiatal hernia noted. - A 4.1 cm paraumbilical fat-containing hernia was noted. - Mild degenerative changes in the spine were noted. Plan Patient was informed and verbally consented to the use of an ambient scribe for clinic note documentation during this visit. 1. Sclerosing Mesenteritis The patient's abdominal CT from June showed stable findings. His abdominal pain has improved significantly with cromolyn, suggesting an allergic component. He will continue taking cromolyn daily and will follow up with his missile tracking technician in a few months. 2. Morbid Obesity The patient's weight has been stable. He acknowledges diet and alcohol intake contribute to weight issues. The plan is to continue encouraging a low-fat diet and exercise. 3. Alcohol Use Disorder The patient reports drinking a six-pack of beer three times a week. He was advised to reduce his alcohol intake, and he is currently working with a therapist on this matter. This will continue to be monitored. 4. Generalized Anxiety Disorder The patient reports his mood has improved and anxiety has decreased, so he has not been taking the prescribed trazodone. He will continue to have trazodone available on an as-needed basis. Discussion Notes I reviewed the patient's recent abdominal CT scan, noting that the findings of sclerosing mesenteritis are reassuringly stable. We discussed the significant improvement in his abdominal pain with cromolyn, and he is very pleased with this outcome. I confirmed his previous STI panel results, including the nonreactive hepatitis B and non-detected HIV tests. We discussed his alcohol consumption, and I advised him to reduce his intake, reminding him it is a source of sugar. I provided a lab request for fasting bloodwork to be completed in three months to check his liver function and vitamin D levels. I recommended a follow-up visit in approximately three months and instructed him to send a message via the portal if any issues arise in the interim. Patient Instructions - Continue taking your cromolyn medication every day as it is helping your abdominal pain. - Try to cut down on your alcohol intake. - Remember to take your vitamin D supplement. - Please get fasting blood work done in about three months. - Schedule a follow-up appointment to see me in about three months. - If you have any problems before your next visit, please send a message through the patient portal. - Be careful, as COVID-19 cases are increasing. Orders: Orders Complete Blood Count Auto Diff 3 Months K76.0 - Fatty (change of) liver, not elsewhere classified Comprehensive Met. Panel 3 Months K76.0 - Fatty (change of) liver, not elsewhere classified Free T4 (Free Thyroxine) 3 Months K76.0 - Fatty (change of) liver, not elsewhere classified Thyroid Stimulating Hormone 3 Months K76.0 - Fatty (change of) liver, not elsewhere classified Lipid Panel 3 Months E78.00 - Pure hypercholesterolemia, unspecified, K76.0 - Fatty (change of) liver, not elsewhere classified Vitamin B12 and Folate 3 Months K76.0 - Fatty (change of) liver, not elsewhere classified Vitamin D 25-OH Total 3 Months K76.0 - Fatty (change of) liver, not elsewhere classified Hemoglobin A1c 3 Months K76.0 - Fatty (change of) liver, not elsewhere classified UA CC w/rflx Micro + Cult 3 Months K76.0 - Fatty (change of) liver, not elsewhere classified, R30.0 - Dysuria Prostate Specific Antigen Scr 3 Months K76.0 - Fatty (change of) liver, not elsewhere classified
--- OUTSIDE RECORDS SUMMARY | 2025-08-16 18:16 | XMS_ITS | Clinical Summary ---
Author Organization [facility] Address [address] [place] [id number] Phone Care Team Providers Care Flexo Operator Name Role Phone Chuck Al MD Unavailable [phone] Unknown, Unknown Primary Care Provider Unavai lable [...] FOBT 2015 SIGMOIDOSCOPY 2015 VIRTUAL COLONOSCOPY 2015 RSV VACCINE (1 - Risk 50-74 years 1-dose series) 2020 PNEUMOCOCCAL VACCINES (50+ years) (2 of 2 - PCV) 08/02/2022 08/02/2021 DEPRESSION SCREENING 08/05/2024 08/05/2023, 08/05/20 COLOGUARD 08/13/2024 08/13/2021 COLORECTAL CANCER SCREENING 08/13/2024 [...] (02/07/2023 3:27 PM EDT) HDL 57 mg/dL [facility] Comment: Interpretation <40 mg/dL: Low HDL cholesterol (major risk factor for CHD) Greater than or equal to 60 mg/dL: High HDL cholesterol ( negative risk factor for CHD) HDL - cholesterol is affected by a number of factors, e.g. smoking, excerise, hormones, sex and age. CHOLESTEROL 185 0 - 240 mg/dL [facility] TRIGLYCERIDES 69 30 - 160 mg/dL [facility] LDL 114 50 - 129 mg/dL [facility] Comment: LDL levels in terms of risk for coronary heart disease: <100 mg/dL: Optimal 100-129 mg/dL: Near or above optimal 130-159 mg/dL: Borderline high 160-189 mg/dL: High >190 mg/dL: Very High CARDIAC RISK RATIO 3.2(L) 3.4 - 5.0 C [facility] Blood 02/07/2023 3:27 PM EDT 02/07/2023 3:31 PM EDT Rebecca Kaur NP LAB BLOOD BKR ORDERABLES Final Result Performing Organization Address [facility] Co de Phone Number [address] [phone] * Hepatitis C antibody, qualitative (08/20/2017 10:56 AM EST) HCV Negative Negative [facility] Comment: This is a screening test and should be confirmed with molecular testing Blood 08/20/2017 10:5 6 AM EST 08/20/2017 11:09 AM EST Rebecca Kaur NP LAB BLOOD BKR ORDERABLES Final Result Performing Organization Address [facility] Co de Phone Number [address] [phone] from Last 3 Months or Most Recently Relevant to Health Maintenance Insurance WELLSENSE NON NSPG PCP CLARITY COMMERCIAL JOLIETENSE NON NSPG PCP CLARITY COMMERCIAL JOLIETENSE NON NSPG PCP CLARITY COMMERCIAL WELL[employer] NON NSPG PCP CLARITY COMMERCIAL JOLIETENSE NON NSPG PCP CLARITY COMMERCIAL JOL[place]ETENSE NON NSPG PCP CLARITY COMMERCIAL WELL[employer] NON NSPG PCP [employer] [place] [place] [address] NON NSPG PCP [employer] [place] [address] NON NSPG PCP [employer]ARITY COMMERCIAL Care Teams Flexo Operator Relationship Specialty Start Date End Date Unknown, Unknown, PCP - General 12/16/23 Chuck Al MD [address] [place] [address] [email or web address] Insurance Assigned Provider Internal Medicine 02/18/19 Additional Source Comments The information contained in this document represents components of the legal health record. It is not the complete legal health record.[facility]
== END 2025-08-16 16:04 | disposition home or self-care (01) ==
LOC: HO.HMCH 15:34
PROVIDERS: PCP Internal Medicine; Visit Provider Internal Medicine
DX: F41.1 Generalized anxiety disorder (principal); T78.40XA Allergy, unspecified, initial encounter; E66.9 Obesity, unspecified; Z68.41 Body mass index [BMI] 40.0-44.9, adult; K76.0 Fatty (change of) liver, not elsewhere classified; R93.5 Abnormal findings on diagnostic imaging of other abdominal regions, including retroperitoneum

== ENCOUNTER → 2025-08-16 15:33 | Outpatient (BNVA) | payer OTHER, SELFPAY | PROVIDERS: PCP Internal Medicine; Visit Provider Internal Medicine | DX: F41.1 Generalized anxiety disorder (principal); K76.0 Fatty (change of) liver, not elsewhere classified; R93.5 Abnormal findings on diagnostic imaging of other abdominal regions, including retroperitoneum; K65.4 Sclerosing mesenteritis; Z91.09 Other allergy status, other than to drugs and biological substances; E66.01 Morbid (severe) obesity due to excess calories; Z68.41 Body mass index [BMI] 40.0-44.9, adult | CPT/HCPCS: 99212 ==

== ENCOUNTER 2025-08-18 15:41 | Outpatient (AMB) | payer OTHER, SELFPAY ==
[2025-08-18 15:47] VITALS: BP 109/61; PULSE 57; BMI 41.6
--- NOTE | 2025-08-18 15:47 | A.OFFVIS_ITS ---
Vital Signs 08/18/25 15:47 Height 5 ft 8 in Weight 273 lb 5.971 oz BMI 41.6 BP 109/61 Blood Pressure Location Lt brachial Position Sitting Pulse 57 Intake Visit Reasons: go over CT results Intake Note: Amanda presents to in office follow up for CT scan results. CC: Patient reports doing much better and denies having any new GI concerns today. 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: No Accompanied by: Self / Same As Patient Allergies Iodinated Contrast Media (IV CONTRAST) Allergy (Severe, Verified 08/18/25 15:49) ANAPHYLAXIS iodine Adverse Reaction (Severe, Verified 08/18/25 15:49) Anaphylaxis HPI HPI go over CT results: Details: Assessment & Plan (1) Abdominal pain: Code(s): R10.9 - Unspecified abdominal pain Category: Medical Qualifiers: Abdominal location: right upper quadrant Qualified Code(s): R10.11 - Right upper quadrant pain (2) Cannabinoid hyperemesis syndrome: Code(s): R11.2 - Nausea with vomiting, unspecified; F12.90 - Cannabis use, unspecified, uncomplicated Category: Medical (3) Thoracic back pain: Code(s): M54.6 - Pain in thoracic spine Category: Medical Plan I HAVE NOT SEEN THE PATIENT SINCE October/2023. HE IS AGREEABLE TO A 10 YEAR colonoscopy recall. His pain continues. It made difference with following a FODMAP diet strictly for a month, it also made no difference if he then split urged and over indulged in things like fatty foods and gas producing problems. He also had no benefit from IBgard, fiber, Pepto-Bismol, omeprazole and famotidine, Tums, Gaviscon, and probiotics. So this does not seem to be a GI problem, although I think we should get a HIDA scan just to be completely thorough. Because it does seem to be better when he lays down and he has a feeling that it is ?more mechanical? I think we should get an x-ray of his thoracic spine to get him started to rule out something like slipping rib syndrome (although I can not reproduce the pain with aggressive musculoskeletal exam/manipulation of the ribcage) and or radicular spinal pathology. Of course I would not be able to diagnose this for him but we can at least try to get him in the right direction. It is also possible that something else is going on like a muscular problem or even a tear of the abdominal fascia. I would not know how to diagnose this and there may not be any clear treatment except time and potentially perhaps weight loss. However he really just wants reassurance that there is no severe pathology at play which is reasonable. Return office visit after HIDA scan, he will call us once he has a date. Orders: Orders XR lumbar spine 2-3V 03/23/25 M54.50 - Low back pain, unspecified XR thoracic spine 2V 03/23/25 M54.6 - Pain in thoracic spine NM hepatobiliary w pharm 03/23/25 M54.6 - Pain in thoracic spine X-RAY LUMBAR AND THORACIC SPINES 03/23/2025 FINDINGS: AP, lateral, and coned down views of the lumbar spine are submitted. Osseous mineralization is normal. Five nonrib-bearing lumbar vertebral bodies are identified, maintaining normal height and alignment without evidence of fracture or spondylolisthesis. Mild degenerative changes are noted with anterior spurring. The intervertebral disc spaces are maintained. 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 The visualized paraspinal soft tissues are unremarkable. XR/XR lumbar spine 2-3V IMPRESSION: Degenerative changes of the lumbar spine as described. FINDINGS: AP and lateral views of the thoracic spine are submitted. Osseous mineralization is normal. The vertebral bodies maintain normal height and alignment without evidence of fracture or subluxation. There is diffuse moderate degenerative disc disease with disc space narrowing and osteophyte formation. The visualized paraspinal soft tissues are unremarkable. XR/XR thoracic spine 2V IMPRESSION: Diffuse moderate degenerative disc disease. HIDA SCAN 04/18/2025 IMPRESSION: No evidence of cystic duct obstruction. Low normal gallbladder ejection fraction of 35%. CT ABDOMEN AND PELVIS 06/2025 FINDINGS: LUNG BASES: Lung bases are clear. Heart size is normal. There are no effusions. LIVER, GALLBLADDER, AND BILIARY TREE: The liver is normal in size, shape, and attenuation. No focal hepatic lesion or biliary ductal dilatation is present. The gallbladder is unremarkable with no evidence of radiopaque gallstones, gallbladder wall thickening, or obvious pericholecystic inflammatory changes. PANCREAS: Unremarkable. SPLEEN: Unremarkable. ADRENAL GLANDS: Unremarkable. KIDNEYS AND URETERS: Right mid to lower renal cortical scar. The kidneys otherwise appear unremarkable in size, shape, and attenuation. No hydronephrosis, hydroureter, or calculi seen. BLADDER: Normal in appearance. GASTROINTESTINAL TRACT: Normal appendix. Probable small type I hiatus hernia. Stomach is normal. Duodenum is normal. Small bowel is normal in caliber and course. No colonic abnormality. The rectum appears normal. PERITONEUM: No free air or ascites. Stable mary mesentery in the central small bowel mesentery with small associated lymph nodes. This has a stable appearance and is consistent with stable sclerosing mesenteritis. ABDOMINAL WALL: There is a paraumbilical fat-containing hernia, with hernia sac measuring 4.1 cm in size. LYMPH NODES: There is no abnormal lymphadenopathy present. VASCULAR: Normal. PELVIC VISCERA: The prostate and seminal vesicles are unremarkable. OSSEOUS STRUCTURES: There is no suspicious lytic or blastic bone lesion. There are mild degenerative changes in the spine. Disc vacuum phenomenon at L5-S1 with disc degeneration. Facet spurring at L4-5 and L5-S1. CT/CT abdomen pelvis w IV con IMPRESSION: 1. No acute finding in the abdomen or pelvis. 2. Stable appearance of mary mesentery in keeping with stable sclerosing mesenteritis. 3. Probable tiny type I hiatus hernia. 4. Similar 4.1 cm periumbilical fat-containing hernia TODAY'S VISIT [facility] Medical History Pre-op examination Upper respiratory infection Annual physical exam Colon cancer screening LFT elevation Bruised kidney Surgical History History of endoscopy History of colonoscopy S/P surgical manipulation of ankle joint Hx of shoulder surgery Family History Mother Diabetes Skin cancer Hypertension Thyroid disease Father Diabetes Sister Skin cancer Sister Skin cancer Sister No problems noted. Brother No problems noted. Brother No problems noted. Brother No problems noted. Other Mental health disorder Substance use disorder Social History Housing: Apartment Alcohol intake: current Comment: 2x a week 3 beers Patient Tobacco Use Status: Never used Tobacco Tobacco use type: Cigarette Years Smoked: smoke cannabis e-Cigarette/Vaping Use: Currently Using (THC ) Second Hand Smoke Exposure: Yes Substance Use Type: Marijuana service: No Current occupational status: employed Current occupation: [employer]ER Current occupational exposures/hazards: No Cognitive needs: No Hearing needs: No Vision needs: Yes Review of Systems Const Denies fatigue, Denies fever(s), Denies night sweats, Denies poor appetite and Denies weight loss Eyes Details: glasses Reports requires corrective lenses ENT Reports Normal hearing present, Denies dental pain, Denies dysphagia, Denies hearing loss, Denies mouth pain, Denies odynophagia, Denies throat swelling, Denies tongue swelling and Reports other (Dentition adequate) GI Details: Denies abdominal pain, Denies melena, Denies bloating, Denies hematochezia, Denies constipation, Denies GI cramping, Denies dysphagia, Denies excessive flatus, Denies early satiety, Denies heartburn, Denies diarrhea, Denies nausea, Denies odynophagia, Denies vomiting and Denies hematemesis Skin/Breast Denies pruritus, Denies lesions, Denies rash and Denies jaundice Neuro Reports Normal hearing present and Denies Abnormal speech present Endo Denies fatigue Aller/Immun Denies throat swelling and Denies tongue swelling Physical Exam Vital Signs: Last Vital Signs Pulse 57 08/18/25 15:47 BP 109/61 08/18/25 15:47 BMI result Body Mass Index 41.6 Const General: cooperative, no acute distress, well developed and well groomed Nutritional Appearance: well nourished, obese and overweight Orientation/consciousness: oriented to person, oriented to place and oriented to time Limitations: No language barrier, ambulation with cane, ambulation with walker and wheelchair HEENT Head: Yes normocephalic and Yes atraumatic Eyes General: appearance normal, both eyes and all related structures Pupils: Equal, round and reactive pupils present Neck Neck: Yes normal visual inspection and Yes no lymphadenopathy Thyroid: Thyroid normal Resp Effort & Inspection: normal respiratory effort and able to speak in complete sentences Auscultation: clear to auscultation bilaterally Cardio Rate: regular rate Rhythm: regular rhythm Heart sounds: Normal, physiologic split S2 sound present Peripheral pulses: radial pulses present and posterior tibial pulses present GI Inspection: No distended and No Abdominal panniculus present Palpation (GI): Soft to palpation, nontender, no guarding, not rigid, No hepatosplenomegaly present and Hepatosplenomegaly present Percussion: Yes normal to percussion Auscultation: normal bowel sounds Rectal Exam - Male: Yes deferred Skin General skin exam: no rashes or lesions noted, turgor normal, skin not dry, no jaundice, No spider nevi and no striae Rashes: no rashes Nails: normal Neuro General: oriented to person, oriented to place and oriented to time Cranial nerves: Yes Equal, round and reactive pupils present and Yes Normal hearing present Speech: No Abnormal speech present Extrem General: Yes normal to inspection, No clubbing, No cyanosis and No edema Psych Thought process: Normal thought process present and not confabulating Thought content: Normal thought content present Insight: Good insight present (Psych) Judgement: Good judgement present (Psych) Assessment & Plan Assessment & Plan (1) Sclerosing mesenteritis: Code(s): K65.4 - Sclerosing mesenteritis Category: Medical (2) Biliary dyskinesia: Comment: MILD WAS LOW/NORMAL EJECTION FRACTION 2024 HIDA Code(s): K82.8 - Other specified diseases of gallbladder Category: Medical (3) Abnormal CT of the abdomen: Comment: 06/2024= mary mesentery , June 2025 Code(s): R93.5 - Abnormal findings on diagnostic imaging of other abdominal regions, including retroperitoneum Category: Medical Plan - The patient is a 55-year-old male presenting with a 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 - Established diagnosis of arthritis of the spine; lower back imaging non- conclusive for nerve involvement. - Gallbladder low ejection fraction was noted, association with symptomatology previously considered. - Diagnosed with mast cell activation syndrome following a referral and confirmation from an rubber goods cutter finisher using chromolyn sodium. - Started on a regimen of Cromolyn sodium which provided a significant reduction in symptoms and improved quality of life, reducing pain to manageable levels. - Historical daily pain spanning 1.5 years prior to current effective management. - Discussed a potential connection between mast cell activation syndrome and previously noted sclerosing mesenteritis. - Continue taking Cromolyn sodium as prescribed for mast cell activation syndrome. - Monitor for any changes in symptoms and contact me if there are adjustments in pain or discomfort levels. - Schedule a follow-up appointment every 6 months or sooner if conditions change. - Report any new gastrointestinal symptoms that may suggest further gallbladder dysfunction. - Ensure the rubber goods cutter finisher's report and any new test results are sent promptly to be updated in the medical record. Coding Level of Care Code Est Pt Level 3 (44658) Diagnoses Sclerosing mesenteritis K65.4 [address] K82.[address] of the abdomen R93.5
--- OUTSIDE RECORDS SUMMARY | 2025-08-18 18:30 | XMS_ITS | Clinical Summary ---
Author Organization [facility] Address [address] [place] [id number] Phone Care Team Providers Care Furniture Polisher Name Role Phone Chuck Al MD Unavailable [phone] Unknown, Unknown Primary Care Provider Unavai [...] 3:27 PM EDT) HDL 57 mg/dL [facility] Comment: Interpretation <40 mg/dL: Low HDL cholesterol (major risk factor for CHD) Greater than or equal to 60 mg/dL: High HDL cholesterol ( negative risk factor for CHD) HDL - cholesterol is affected by a number of factors, e.g. smoking, excerise, hormones, sex and age. CHOLESTEROL 185 0 - 240 mg/dL [facility] TRIGLYCERIDES 69 30 - 160 mg/dL [facility] LDL 114 50 - 129 mg/dL [facility] Comment: LDL levels in terms of risk for coronary heart disease: <100 mg/dL: Optimal 100-129 mg/dL: Near or above optimal 130-159 mg/dL: Borderline high 160-189 mg/dL: High >190 mg/dL: Very High CARDIAC RISK RATIO 3.2(L) 3.4 - 5.0 C [facility] Blood 02/07/2023 3:27 PM EDT 02/07/2023 3:31 PM EDT Rebecca Kaur NP LAB BLOOD BKR ORDERABLES Final Result Performing Organization Address [facility] Co de Phone Number [address] [phone] * Hepatitis C antibody, qualitative (08/20/2017 10:56 AM EST) HCV Negative Negative [facility] Comment: This is a screening test and should be confirmed with molecular testing Blood 08/20/2017 10:5 6 AM EST 08/20/2017 11:09 AM EST Rebecca Kaur NP LAB BLOOD BKR ORDERABLES Final Result Performing Organization Address [facility] Co de Phone Number [address] [phone] from Last 3 Months or Most Recently Relevant to Health Maintenance Insurance WELLS[employer] NON NSPG PCP CLARITY COMMERCIAL [place] NON NSPG PCP CLARITY COMMERCIAL [place] NON NSPG PCP CLARITY COMMERCIAL [employer] NON NSPG PCP CLARITY COMMERCIAL [place] NON NSPG PCP CLARITY COMMERCIAL [place] NON NSPG PCP CLARITY COMMERCIAL [place] NON NSPG PCP CLARITY [place] [address] [address] [address] NON NSPG PCP [employer] [place] [address] [place] [address] NON NSPG PCP CLARITY COMMERCIAL Care Teams Furniture Polisher Relationship Specialty Start Date End Date Unknown, Unknown, PCP - General 12/16/23 Chuck Al MD [address] [place] [address] [email or web address] Insurance Assigned Provider Internal Medicine 02/18/19 Additional Source Comments The information contained in this document represents components of the legal health record. It is not the complete legal health record.[facility]
== END 2025-08-18 16:42 | disposition home or self-care (01) ==
LOC: HO.HGI 15:42
PROVIDERS: PCP Internal Medicine; Visit Provider Nurse Practitioner
DX: K65.4 Sclerosing mesenteritis (principal); K82.8 Other specified diseases of gallbladder; R93.5 Abnormal findings on diagnostic imaging of other abdominal regions, including retroperitoneum
CPT/HCPCS: 99213

== ENCOUNTER → 2025-08-18 15:41 | Outpatient (BNVA) | payer OTHER, SELFPAY | PROVIDERS: PCP Internal Medicine; Visit Provider Nurse Practitioner | DX: Z71.2 Person consulting for explanation of examination or test findings (principal); K65.4 Sclerosing mesenteritis; K82.8 Other specified diseases of gallbladder; R93.5 Abnormal findings on diagnostic imaging of other abdominal regions, including retroperitoneum | CPT/HCPCS: 99212 ==